=== PATIENT | female | born 1945 | race African-American/Black ===

== ENCOUNTER 2021-09-12 00:53 | Observation (INO) ==
[2021-09-12 09:11] LABS: Basophils # 0.1 10*3/uL (0.0-0.2); Basophils % 0.7 % (0.0-0.8); Eosinophils # 0.1 10*3/uL (0.0-0.87); Eosinophils % 1.3 % (0.00-10.9); Hematocrit 33.5 VOL% (35.7-47.0); Immature Granulocytes % 0.7 %; Immature Granulocytes Absolute 0.05 #; Lymphocytes # 2.4 10*3/uL (1.4-4.0); Lymphocytes % 33.8 % (21.3-54.2); Mean Corpuscular HGB Conc 32.8 GM/DL (32-36); Mean Corpuscular Volume 89.3 FL (87-102); Mean Platelet Volume 10.5 FL (9.6-12.0); Neutrophils % 50.5 % (38.7-73.9); Platelet Count 294 T/CUMM (130-400); Red Blood Count 3.75 MC/CUMM (3.8-5.5); Red Cell Distribution Width 15.3 % (9.3-17.3); White Blood Count 7.2 T/CUMM (4-12)
[2021-09-12] MEDS ORDERED: HYDROmorphone 2 MG/1 ML VIAL IV STA (09:14)
[2021-09-12] MEDS ORDERED: ONDANSETRON 4 MG/2 ML VIAL IV STA (09:14)
[2021-09-12] MEDS ORDERED: KETOROLAC 30 MG/1 ML VIAL IV STA (09:17)
[2021-09-12 09:41] LABS: Osmolality,Calculated 265.4 MOS/KG (273-304); Potassium 4.4 MMOL/L (3.5-5.1)
[2021-09-12 10:13] LABS: Sedimentation Rate-Westergren 10 MM/HR (0-30)
[2021-09-12] MEDS ORDERED: GLUCAGON 1 MG VIAL IM PRN (11:45)
[2021-09-12] MEDS ORDERED: hydrALAZINE 20 MG/1 ML VIAL IV PRN (11:45)
[2021-09-12] MEDS ORDERED: ONDANSETRON 4 MG/2 ML VIAL IV PRN (11:45)
[2021-09-12] MEDS ORDERED: DEXTROSE 10% 25 GM/250 ML BAG IV PRN (11:56)
[2021-09-12 13:41] LABS: Bilirubin,Urine Negative (Negative); Blood, Urine Negative (Negative); Glucose,Urine (UA) Negative (Negative); Ketones,Urine Negative (Negative); Mucus,Urine Occasional /LPF (Occasional); Nitrite,Urine Negative (Negative); Protein,Urine Negative; RBC,Urine 1 /HPF (0-4); Urine Appearance CLEAR (Clear); Urine Color Yellow (Yellow); Urine Specific Gravity 1.011 (1.001-1.035); Urine Urobilinogen < 2.0 EU/DL (<2.0)
[2021-09-12] MEDS: PANTOPRAZOLE 40 MG TABLET PO SCH (19:54)
[2021-09-12] MEDS: ENOXAPARIN 40 MG/0.4 ML SYRINGE SUBCUT SCH (19:54)
[2021-09-12] MEDS ORDERED: INFLUENZA VIRUS VACCINE 0.5 ML SYRINGE IM ONE (20:03)
[2021-09-12] MEDS: ACETAMINOPHEN 325 MG TABLET PO PRN (21:57)
[2021-09-13] MEDS: ACETAMINOPHEN 325 MG TABLET PO PRN ×2 (01:17→21:02)
[2021-09-13 05:48] LABS: Basophils % 0.7 % (0.0-0.8); Eosinophils # 0.1 10*3/uL (0.0-0.87); Eosinophils % 2.2 % (0.00-10.9); Hematocrit 29.5 VOL% (35.7-47.0); Hemoglobin 9.4 GM/DL (12.0-16.0); Immature Granulocytes % 0.6 %; Immature Granulocytes Absolute 0.03 #; Lymphocytes # 2.1 10*3/uL (1.4-4.0); Lymphocytes % 39.3 % (21.3-54.2); Mean Corpuscular HGB Conc 31.9 GM/DL (32-36); Mean Corpuscular Volume 91.6 FL (87-102); Mean Platelet Volume 9.3 FL (9.6-12.0); Monocytes % 13.2 % (1.7-12.7); Platelet Count 251 T/CUMM (130-400); Red Blood Count 3.22 MC/CUMM (3.8-5.5); Red Cell Distribution Width 15.4 % (9.3-17.3); White Blood Count 5.5 T/CUMM (4-12)
[2021-09-13 06:20] LABS: Albumin 2.7 G/DL (3.4-5.0); Bilirubin,Total 0.4 MG/DL (0.20-1.00); Calcium 9.4 MG/DL (8.5-10.1); Osmolality,Calculated 265.4 MOS/KG (273-304); Risk Ratio 2.12; Thyroid Stimulating Hormone 1.81 uIU/ml (0.358-3.74); Total Protein 5.6 G/DL (6.4-8.2); VLDL Cholesterol 14.2 MG/DL
[2021-09-13] MEDS: PANTOPRAZOLE 40 MG TABLET PO SCH (09:44)
[2021-09-13] MEDS: amLODIPine 10 MG TABLET PO SCH (13:12)
[2021-09-13] MEDS: ENOXAPARIN 40 MG/0.4 ML SYRINGE SUBCUT SCH (13:12)
[2021-09-13] MEDS: SODIUM CHLORIDE 0.9% 1,000 ML IV SCH (13:17)
[2021-09-14] MEDS: SODIUM CHLORIDE 0.9% 1,000 ML IV SCH ×3 (04:17→15:18)
[2021-09-14] MEDS: POLYETHYLENE GLYCOL POWDER 17 GM PACK PO PRN (04:46)
[2021-09-14 05:04] LABS: Basophils # 0.1 10*3/uL (0.0-0.2); Eosinophils # 0.2 10*3/uL (0.0-0.87); Eosinophils % 2.9 % (0.00-10.9); Hematocrit 31.6 VOL% (35.7-47.0); Hemoglobin 10.1 GM/DL (12.0-16.0); Immature Granulocytes % 0.5 %; Immature Granulocytes Absolute 0.03 #; Lymphocytes # 2.2 10*3/uL (1.4-4.0); Lymphocytes % 34.8 % (21.3-54.2); Mean Corpuscular Volume 91.9 FL (87-102); Mean Platelet Volume 9.6 FL (9.6-12.0); Monocytes % 12.3 % (1.7-12.7); Neutrophils % 48.5 % (38.7-73.9); Platelet Count 260 T/CUMM (130-400); Red Blood Count 3.44 MC/CUMM (3.8-5.5); Red Cell Distribution Width 15.1 % (9.3-17.3); White Blood Count 6.2 T/CUMM (4-12)
[2021-09-14 05:41] LABS: Calcium 9.3 MG/DL (8.5-10.1); Potassium 3.8 MMOL/L (3.5-5.1)
[2021-09-14] MEDS: cycloSPORINE OPH EMUL 1 VIAL BOTH EYES SCH ×2 (05:53→17:23)
[2021-09-14] MEDS: ACETAMINOPHEN 325 MG TABLET PO PRN (05:55)
[2021-09-14] MEDS: PANTOPRAZOLE 40 MG TABLET PO SCH (08:01)
[2021-09-14] MEDS: amLODIPine 10 MG TABLET PO SCH (08:01)
[2021-09-14] MEDS ORDERED: BISACODYL 5 MG TABLET PO PRN (09:33)
[2021-09-14] MEDS: LISINOPRIL/HCTZ 10-12.5 MG TABLET PO SCH (12:01)
[2021-09-14] MEDS: ENOXAPARIN 40 MG/0.4 ML SYRINGE SUBCUT SCH (12:02)
[2021-09-15] MEDS: SODIUM CHLORIDE 0.9% 1,000 ML IV SCH ×2 (02:43→07:03)
[2021-09-15] MEDS: ACETAMINOPHEN 325 MG TABLET PO PRN (04:32)
[2021-09-15] MEDS: cycloSPORINE OPH EMUL 1 VIAL BOTH EYES SCH ×2 (05:40→17:35)
[2021-09-15 05:55] LABS: Basophils # 0.1 10*3/uL (0.0-0.2); Basophils % 0.8 % (0.0-0.8); Eosinophils # 0.2 10*3/uL (0.0-0.87); Eosinophils % 2.3 % (0.00-10.9); Hematocrit 32.1 VOL% (35.7-47.0); Hemoglobin 10.4 GM/DL (12.0-16.0); Immature Granulocytes % 0.6 %; Immature Granulocytes Absolute 0.04 #; Lymphocytes # 2.1 10*3/uL (1.4-4.0); Lymphocytes % 32.8 % (21.3-54.2); Mean Corpuscular HGB Conc 32.4 GM/DL (32-36); Mean Corpuscular Volume 90.4 FL (87-102); Monocytes % 10.8 % (1.7-12.7); Neutrophils % 52.7 % (38.7-73.9); Platelet Count 255 T/CUMM (130-400); Red Blood Count 3.55 MC/CUMM (3.8-5.5); Red Cell Distribution Width 15.2 % (9.3-17.3); White Blood Count 6.4 T/CUMM (4-12)
[2021-09-15 06:15] LABS: Calcium 9.4 MG/DL (8.5-10.1); Osmolality,Calculated 274.5 MOS/KG (273-304); Potassium 3.2 MMOL/L (3.5-5.1)
[2021-09-15] MEDS ORDERED: LACTULOSE 20 GM/30 ML UDCUP PO PRN (08:49)
[2021-09-15] MEDS ORDERED: POTASSIUM CHLORIDE 20 MEQ TABLET PO ONE (09:00)
[2021-09-15] MEDS: PANTOPRAZOLE 40 MG TABLET PO SCH (09:04)
[2021-09-15] MEDS: LISINOPRIL/HCTZ 10-12.5 MG TABLET PO SCH (09:04)
[2021-09-15] MEDS: amLODIPine 10 MG TABLET PO SCH (09:04)
[2021-09-15] MEDS: ENOXAPARIN 40 MG/0.4 ML SYRINGE SUBCUT SCH (13:11)
[2021-09-16 05:05] LABS: Basophils # 0.1 10*3/uL (0.0-0.2); Basophils % 0.9 % (0.0-0.8); Eosinophils # 0.2 10*3/uL (0.0-0.87); Eosinophils % 2.2 % (0.00-10.9); Hematocrit 32.4 VOL% (35.7-47.0); Hemoglobin 10.3 GM/DL (12.0-16.0); Immature Granulocytes % 0.5 %; Immature Granulocytes Absolute 0.04 #; Lymphocytes # 2.5 10*3/uL (1.4-4.0); Lymphocytes % 32.1 % (21.3-54.2); Mean Corpuscular HGB Conc 31.8 GM/DL (32-36); Mean Platelet Volume 9.3 FL (9.6-12.0); Monocytes % 8.7 % (1.7-12.7); Neutrophils % 55.6 % (38.7-73.9); Platelet Count 251 T/CUMM (130-400); Red Blood Count 3.52 MC/CUMM (3.8-5.5); Red Cell Distribution Width 15.6 % (9.3-17.3); White Blood Count 7.8 T/CUMM (4-12)
[2021-09-16 05:35] LABS: Osmolality,Calculated 271.7 MOS/KG (273-304); Potassium 3.4 MMOL/L (3.5-5.1)
[2021-09-16] MEDS: cycloSPORINE OPH EMUL 1 VIAL BOTH EYES SCH ×2 (06:36→18:27)
[2021-09-16] MEDS ORDERED: POTASSIUM CHLORIDE 20 MEQ TABLET PO PRN (07:58)
[2021-09-16] MEDS: LISINOPRIL/HCTZ 10-12.5 MG TABLET PO SCH (09:07)
[2021-09-16] MEDS: allopurinoL 100 MG TABLET PO SCH (09:08)
[2021-09-16] MEDS: PANTOPRAZOLE 40 MG TABLET PO SCH (09:08)
[2021-09-16] MEDS: amLODIPine 10 MG TABLET PO SCH (09:08)
[2021-09-16] MEDS: POLYETHYLENE GLYCOL POWDER 17 GM PACK PO PRN (11:57)
[2021-09-16] MEDS: POLYETHYLENE GLYCOL POWDER 17 GM PACK PO SCH (15:10)
[2021-09-16] MEDS: ENOXAPARIN 40 MG/0.4 ML SYRINGE SUBCUT SCH (15:49)
[2021-09-16] MEDS: ACETAMINOPHEN 325 MG TABLET PO PRN (21:56)
[2021-09-17] MEDS: cycloSPORINE OPH EMUL 1 VIAL BOTH EYES SCH (05:42)
[2021-09-17 06:56] LABS: Basophils # 0.1 10*3/uL (0.0-0.2); Basophils % 0.8 % (0.0-0.8); Eosinophils # 0.1 10*3/uL (0.0-0.87); Eosinophils % 1.6 % (0.00-10.9); Hematocrit 30.1 VOL% (35.7-47.0); Hemoglobin 9.8 GM/DL (12.0-16.0); Immature Granulocytes % 0.5 %; Immature Granulocytes Absolute 0.04 #; Lymphocytes # 1.9 10*3/uL (1.4-4.0); Lymphocytes % 23.9 % (21.3-54.2); Mean Corpuscular HGB Conc 32.6 GM/DL (32-36); Mean Corpuscular Volume 90.9 FL (87-102); Mean Platelet Volume 9.6 FL (9.6-12.0); Monocytes % 11.9 % (1.7-12.7); Neutrophils % 61.3 % (38.7-73.9); Platelet Count 234 T/CUMM (130-400); Red Blood Count 3.31 MC/CUMM (3.8-5.5); Red Cell Distribution Width 15.6 % (9.3-17.3); White Blood Count 7.9 T/CUMM (4-12)
[2021-09-17 07:06] LABS: Calcium 9.8 MG/DL (8.5-10.1); Osmolality,Calculated 269.8 MOS/KG (273-304); Potassium 3.3 MMOL/L (3.5-5.1)
[2021-09-17] MEDS ORDERED: POTASSIUM CHLORIDE 20 MEQ TABLET PO ONE (07:22)
[2021-09-17 08:14] VITALS: BP 156/63
[2021-09-17] MEDS: POLYETHYLENE GLYCOL POWDER 17 GM PACK PO SCH (08:21)
[2021-09-17] MEDS: LISINOPRIL/HCTZ 10-12.5 MG TABLET PO SCH (08:21)
[2021-09-17] MEDS: amLODIPine 10 MG TABLET PO SCH (08:21)
[2021-09-17] MEDS: PANTOPRAZOLE 40 MG TABLET PO SCH (08:22)
[2021-09-17] MEDS: allopurinoL 100 MG TABLET PO SCH (08:22)
[2021-09-17] MEDS ORDERED: POTASSIUM CHLORIDE 20 MEQ TABLET PO SCH (21:00)
== END 2021-09-17 11:32 | disposition home or self-care (01) ==
LOC: EDBD → EDUNIT# → N.EDINP 00:53 → N.ED 00:53 → SUATTDRO 11:45 → N.EDINP 15:49 → N.3E 17:02
PROVIDERS: ADMIT Internal Medicine; ATTEND Internal Medicine

== ENCOUNTER 2021-11-05 14:34 | Inpatient (IN) ==
[2021-11-05 15:34] LABS: Basophils # 0.1 10*3/uL (0.0-0.2); Basophils % 0.7 % (0.0-0.8); Eosinophils % 0.4 % (0.00-10.9); Hematocrit 35.3 VOL% (35.7-47.0); Hemoglobin 11.2 GM/DL (12.0-16.0); Immature Granulocytes % 0.6 %; Immature Granulocytes Absolute 0.04 #; Lymphocytes # 2.2 10*3/uL (1.4-4.0); Lymphocytes % 30.9 % (21.3-54.2); Mean Corpuscular HGB Conc 31.7 GM/DL (32-36); Mean Corpuscular Volume 91.9 FL (87-102); Mean Platelet Volume 9.7 FL (9.6-12.0); Monocytes % 11.7 % (1.7-12.7); Neutrophils % 55.7 % (38.7-73.9); Platelet Count 300 T/CUMM (130-400); Red Blood Count 3.84 MC/CUMM (3.8-5.5); Red Cell Distribution Width 14.6 % (9.3-17.3); White Blood Count 7.1 T/CUMM (4-12)
[2021-11-05 16:18] LABS: Bilirubin,Urine Negative (Negative); Blood, Urine Trace mg/dL (Negative); Glucose,Urine (UA) Negative (Negative); Ketones,Urine Negative (Negative); Nitrite,Urine Negative (Negative); Protein,Urine Negative (Negative); RBC,Urine 1 /HPF (0-4); Squamous Epithelial Cell,Urine Occasional /HPF (0-10); Urine Appearance Clear (Clear); Urine Color Yellow (Yellow); Urine Specific Gravity 1.015 (1.001-1.035); Urine Urobilinogen 0.2 eU/dL (<2.0)
[2021-11-05 16:22] LABS: Alanine Aminotransferase 31 U/L (13-56); Albumin 3.5 G/DL (3.4-5.0); Alkaline Phosphatase 131 U/L (45-117); Aspartate Amino Transferase 30 U/L (0-37); Bilirubin,Total < 0.39 MG/DL (0.20-1.00); Blood Urea Nitrogen 35 MG/DL (7-18); Calcium 9.9 MG/DL (8.5-10.1); Carbon Dioxide 31 MMOL/L (21-32); Estimated Glom Filtration Rate 54 ML/MIN; Glucose 85 MG/DL (74-106); Osmolality,Calculated 283.5 MOS/KG (273-304); Sodium 139 MMOL/L (136-145)
[2021-11-05] MEDS ORDERED: POTASSIUM CHLORIDE 20 MEQ TABLET PO STA (16:32)
[2021-11-05] MEDS ORDERED: SODIUM CHLOR 0.9% KCL 20 MEQ 20 MEQ/1,000 ML BAG IV SCH (17:00)
[2021-11-05] MEDS ORDERED: ALBUTEROL 2.5 MG/3 ML NEB RESP TX PRN (17:21)
[2021-11-05] MEDS ORDERED: GLUCAGON 1 MG VIAL IM PRN (17:21)
[2021-11-05] MEDS ORDERED: ONDANSETRON 4 MG/2 ML VIAL IV PRN (17:21)
[2021-11-05] MEDS ORDERED: hydrALAZINE 20 MG/1 ML VIAL IV PRN (17:21)
[2021-11-05] MEDS ORDERED: ENOXAPARIN 40 MG/0.4 ML SYRINGE SUBCUT SCH (17:30)
[2021-11-05] MEDS ORDERED: DEXTROSE 10% 250 ML BAG IV PRN (17:37)
[2021-11-05] MEDS: SODIUM CHLOR 0.9% KCL 20 MEQ 20 MEQ/1,000 ML BAG IV SCH (17:51)
[2021-11-05] MEDS ORDERED: MORPHINE 4 MG/1 ML VIAL IV PRN (18:01)
[2021-11-05 18:42] LABS: % Iron Saturation 23.8 % (18-50)
[2021-11-05 21:00] LABS: Folate 7.99 NG/ML (5.38-24.0)
[2021-11-05] MEDS ORDERED: traMADol 50 MG TABLET PO ONE (21:58)
[2021-11-06] MEDS: SODIUM CHLOR 0.9% KCL 20 MEQ 20 MEQ/1,000 ML BAG IV SCH ×2 (03:04→17:03)
[2021-11-06 05:25] LABS: Basophils # 0.1 10*3/uL (0.0-0.2); Basophils % 0.8 % (0.0-0.8); Eosinophils # 0.1 10*3/uL (0.0-0.87); Eosinophils % 1.4 % (0.00-10.9); Hematocrit 30.7 VOL% (35.7-47.0); Hemoglobin 9.8 GM/DL (12.0-16.0); Immature Granulocytes % 0.5 %; Immature Granulocytes Absolute 0.03 #; Lymphocytes # 2.6 10*3/uL (1.4-4.0); Lymphocytes % 40.2 % (21.3-54.2); Mean Corpuscular HGB Conc 31.9 GM/DL (32-36); Mean Corpuscular Volume 89.8 FL (87-102); Mean Platelet Volume 9.3 FL (9.6-12.0); Monocytes % 12.9 % (1.7-12.7); Neutrophils % 44.2 % (38.7-73.9); Platelet Count 273 T/CUMM (130-400); Red Blood Count 3.42 MC/CUMM (3.8-5.5); Red Cell Distribution Width 14.8 % (9.3-17.3); White Blood Count 6.4 T/CUMM (4-12)
[2021-11-06 05:58] LABS: Albumin 2.8 G/DL (3.4-5.0); Bilirubin,Total 0.4 MG/DL (0.20-1.00); Calcium 9.7 MG/DL (8.5-10.1); Osmolality,Calculated 282.4 MOS/KG (273-304); Potassium 3.3 MMOL/L (3.5-5.1); Thyroid Stimulating Hormone 1.14 uIU/ml (0.358-3.74); Total Protein 5.7 G/DL (6.4-8.2); VLDL Cholesterol 20.8 MG/DL
[2021-11-06] MEDS: PANTOPRAZOLE 40 MG VIAL IV SCH (09:17)
[2021-11-06] MEDS ORDERED: cycloSPORINE OPH EMUL 1 VIAL BOTH EYES SCH (21:00)
[2021-11-06] MEDS: ACETAMINOPHEN 325 MG TABLET PO PRN (21:32)
[2021-11-07] MEDS: SODIUM CHLOR 0.9% KCL 20 MEQ 20 MEQ/1,000 ML BAG IV SCH ×4 (03:11→20:00)
[2021-11-07] MEDS: cycloSPORINE OPH EMUL 1 VIAL BOTH EYES SCH ×3 (05:34→18:15)
[2021-11-07] MEDS: ACETAMINOPHEN 325 MG TABLET PO PRN ×2 (06:23→20:47)
[2021-11-07 06:26] LABS: Bilirubin,Total 0.5 MG/DL (0.20-1.00); Calcium 9.7 MG/DL (8.5-10.1); Potassium 3.1 MMOL/L (3.5-5.1); Total Protein 5.9 G/DL (6.4-8.2)
[2021-11-07 06:40] LABS: Basophils % 0.7 % (0.0-0.8); Eosinophils # 0.2 10*3/uL (0.0-0.87); Eosinophils % 2.7 % (0.00-10.9); Hematocrit 30.5 VOL% (35.7-47.0); Hemoglobin 9.7 GM/DL (12.0-16.0); Immature Granulocytes % 0.5 %; Immature Granulocytes Absolute 0.03 #; Lymphocytes % 36.2 % (21.3-54.2); Mean Corpuscular HGB Conc 31.8 GM/DL (32-36); Mean Corpuscular Volume 91.6 FL (87-102); Mean Platelet Volume 10.2 FL (9.6-12.0); Monocytes % 11.5 % (1.7-12.7); Neutrophils % 48.4 % (38.7-73.9); Platelet Count 268 T/CUMM (130-400); Red Blood Count 3.33 MC/CUMM (3.8-5.5); Red Cell Distribution Width 14.6 % (9.3-17.3); White Blood Count 5.6 T/CUMM (4-12)
[2021-11-07] MEDS ORDERED: POTASSIUM CHLORIDE 20 MEQ TABLET PO ONE (07:24)
[2021-11-07] MEDS: PANTOPRAZOLE 40 MG VIAL IV SCH (09:04)
[2021-11-07] MEDS ORDERED: CYANOCOBALAMIN 1000 MCG/1 ML VIAL IM SCH (10:00)
[2021-11-07] MEDS: LACTATED RINGERS 1,000 ML IV SCH ×2 (10:21→11:00)
[2021-11-07] MEDS ORDERED: DICLOFENAC SODIUM 75 MG TABLET PO SCH (12:00)
[2021-11-07] MEDS ORDERED: LIDOCAINE 2% 5 ML VIAL ONE (13:11)
[2021-11-07] MEDS ORDERED: propofoL 200 MG/20 ML VIAL IV ONE (13:11)
[2021-11-07] MEDS ORDERED: ETOMIDATE 20 MG/10 ML VIAL IV ONE (13:11)
[2021-11-07] MEDS: ANASTROZOLE 1 MG TABLET PO SCH (14:44)
[2021-11-07] MEDS: hydroCHLOROthiazide 12.5 MG CAPSULE PO SCH ×2 (14:44→20:44)
[2021-11-07] MEDS: CHOLECALCIFEROL 5,000 UNIT TABLET PO SCH (14:44)
[2021-11-07] MEDS: allopurinoL 100 MG TABLET PO SCH (14:44)
[2021-11-07] MEDS: HYDROXYCHLOROQUINE 200 MG TABLET PO SCH ×2 (14:44→20:44)
[2021-11-07] MEDS: lisinopriL 10 MG TABLET PO SCH ×2 (14:44→20:44)
[2021-11-07] MEDS: COLCHICINE 0.6 MG CAPSULE PO SCH ×2 (14:45→20:44)
[2021-11-07] MEDS: amLODIPine 10 MG TABLET PO SCH (14:45)
[2021-11-08] MEDS: SODIUM CHLOR 0.9% KCL 20 MEQ 20 MEQ/1,000 ML BAG IV SCH ×3 (04:16→15:28)
[2021-11-08 05:03] LABS: Basophils # 0.1 10*3/uL (0.0-0.2); Basophils % 0.6 % (0.0-0.8); Eosinophils # 0.2 10*3/uL (0.0-0.87); Eosinophils % 2.4 % (0.00-10.9); Hematocrit 31.3 VOL% (35.7-47.0); Hemoglobin 9.7 GM/DL (12.0-16.0); Immature Granulocytes % 0.4 %; Immature Granulocytes Absolute 0.03 #; Lymphocytes # 2.3 10*3/uL (1.4-4.0); Lymphocytes % 28.7 % (21.3-54.2); Mean Corpuscular Volume 89.9 FL (87-102); Mean Platelet Volume 9.1 FL (9.6-12.0); Neutrophils % 56.9 % (38.7-73.9); Platelet Count 254 T/CUMM (130-400); Red Blood Count 3.48 MC/CUMM (3.8-5.5); Red Cell Distribution Width 14.6 % (9.3-17.3); White Blood Count 7.9 T/CUMM (4-12)
[2021-11-08 05:26] LABS: Albumin 2.8 G/DL (3.4-5.0); Bilirubin,Total 0.4 MG/DL (0.20-1.00); Calcium 9.5 MG/DL (8.5-10.1); Potassium 3.4 MMOL/L (3.5-5.1); Total Protein 5.6 G/DL (6.4-8.2)
[2021-11-08] MEDS: cycloSPORINE OPH EMUL 1 VIAL BOTH EYES SCH ×4 (06:53→18:05)
[2021-11-08] MEDS: CHOLECALCIFEROL 5,000 UNIT TABLET PO SCH (08:40)
[2021-11-08] MEDS: ANASTROZOLE 1 MG TABLET PO SCH (08:40)
[2021-11-08] MEDS: COLCHICINE 0.6 MG CAPSULE PO SCH ×2 (08:40→20:33)
[2021-11-08] MEDS: amLODIPine 10 MG TABLET PO SCH (08:40)
[2021-11-08] MEDS: POTASSIUM CHLORIDE 20 MEQ TABLET PO SCH (08:40)
[2021-11-08] MEDS: HYDROXYCHLOROQUINE 200 MG TABLET PO SCH ×2 (08:40→20:33)
[2021-11-08] MEDS: hydroCHLOROthiazide 12.5 MG CAPSULE PO SCH ×2 (08:40→20:33)
[2021-11-08] MEDS: allopurinoL 100 MG TABLET PO SCH (08:40)
[2021-11-08] MEDS: PANTOPRAZOLE 40 MG VIAL IV SCH (08:41)
[2021-11-08] MEDS: lisinopriL 10 MG TABLET PO SCH ×2 (08:44→20:33)
[2021-11-08] MEDS: cefTRIAXone 1,000 MG in SODIUM CHLORIDE 0.9% 100 ML IV SCH (09:24)
[2021-11-08] MEDS: ACETAMINOPHEN 325 MG TABLET PO PRN (20:37)
[2021-11-09] MEDS: cycloSPORINE OPH EMUL 1 VIAL BOTH EYES SCH ×4 (00:32→18:07)
[2021-11-09] MEDS: SODIUM CHLOR 0.9% KCL 20 MEQ 20 MEQ/1,000 ML BAG IV SCH ×2 (03:52→16:37)
[2021-11-09 05:40] LABS: Basophils # 0.1 10*3/uL (0.0-0.2); Basophils % 0.7 % (0.0-0.8); Eosinophils # 0.2 10*3/uL (0.0-0.87); Eosinophils % 2.8 % (0.00-10.9); Hematocrit 30.5 VOL% (35.7-47.0); Hemoglobin 9.8 GM/DL (12.0-16.0); Immature Granulocytes % 0.6 %; Immature Granulocytes Absolute 0.04 #; Lymphocytes # 2.4 10*3/uL (1.4-4.0); Lymphocytes % 33.9 % (21.3-54.2); Mean Corpuscular HGB Conc 32.1 GM/DL (32-36); Mean Corpuscular Volume 89.7 FL (87-102); Mean Platelet Volume 9.3 FL (9.6-12.0); Monocytes % 10.8 % (1.7-12.7); Neutrophils % 51.2 % (38.7-73.9); Platelet Count 244 T/CUMM (130-400); Red Cell Distribution Width 14.8 % (9.3-17.3); White Blood Count 7.1 T/CUMM (4-12)
[2021-11-09 06:02] LABS: Albumin 2.8 G/DL (3.4-5.0); Bilirubin,Total 0.4 MG/DL (0.20-1.00); Calcium 9.5 MG/DL (8.5-10.1); Potassium 3.4 MMOL/L (3.5-5.1); Total Protein 5.8 G/DL (6.4-8.2)
[2021-11-09] MEDS: CHOLECALCIFEROL 5,000 UNIT TABLET PO SCH (08:40)
[2021-11-09] MEDS: ANASTROZOLE 1 MG TABLET PO SCH (08:41)
[2021-11-09] MEDS: hydroCHLOROthiazide 12.5 MG CAPSULE PO SCH ×2 (08:41→20:18)
[2021-11-09] MEDS: allopurinoL 100 MG TABLET PO SCH (08:41)
[2021-11-09] MEDS: lisinopriL 10 MG TABLET PO SCH ×2 (08:41→20:18)
[2021-11-09] MEDS: POTASSIUM CHLORIDE 20 MEQ TABLET PO SCH (08:41)
[2021-11-09] MEDS: amLODIPine 10 MG TABLET PO SCH (08:41)
[2021-11-09] MEDS: COLCHICINE 0.6 MG CAPSULE PO SCH ×2 (08:41→20:18)
[2021-11-09] MEDS: HYDROXYCHLOROQUINE 200 MG TABLET PO SCH ×2 (08:41→20:18)
[2021-11-09] MEDS: cefTRIAXone 1,000 MG in SODIUM CHLORIDE 0.9% 100 ML IV SCH (08:42)
[2021-11-09] MEDS: PANTOPRAZOLE 40 MG VIAL IV SCH (08:42)
[2021-11-09] MEDS ORDERED: POTASSIUM CHLORIDE 20 MEQ TABLET PO ONE (10:02)
[2021-11-09] MEDS: ACETAMINOPHEN 325 MG TABLET PO PRN ×2 (12:49→18:06)
[2021-11-10] MEDS: cycloSPORINE OPH EMUL 1 VIAL BOTH EYES SCH ×4 (00:20→18:08)
[2021-11-10] MEDS: SODIUM CHLOR 0.9% KCL 20 MEQ 20 MEQ/1,000 ML BAG IV SCH ×4 (00:20→21:51)
[2021-11-10] MEDS: MORPHINE 2 MG/1 ML SYRINGE IV PRN ×2 (02:23→16:49)
[2021-11-10 04:25] LABS: Basophils # 0.1 10*3/uL (0.0-0.2); Basophils % 1.2 % (0.0-0.8); Eosinophils # 0.2 10*3/uL (0.0-0.87); Eosinophils % 3.4 % (0.00-10.9); Hemoglobin 9.3 GM/DL (12.0-16.0); Immature Granulocytes % 0.5 %; Immature Granulocytes Absolute 0.03 #; Lymphocytes # 2.2 10*3/uL (1.4-4.0); Lymphocytes % 37.8 % (21.3-54.2); Mean Corpuscular HGB Conc 32.1 GM/DL (32-36); Mean Corpuscular Volume 90.9 FL (87-102); Monocytes % 14.1 % (1.7-12.7); Platelet Count 173 T/CUMM (130-400); Red Blood Count 3.19 MC/CUMM (3.8-5.5); Red Cell Distribution Width 14.9 % (9.3-17.3); White Blood Count 5.9 T/CUMM (4-12)
[2021-11-10 04:47] LABS: Alanine Aminotransferase 20 U/L (13-56); Albumin 2.7 G/DL (3.4-5.0); Alkaline Phosphatase 94 U/L (45-117); Aspartate Amino Transferase 19 U/L (0-37); Bilirubin,Total < 0.39 MG/DL (0.20-1.00); Blood Urea Nitrogen 11 MG/DL (7-18); Calcium 9.3 MG/DL (8.5-10.1); Carbon Dioxide 25 MMOL/L (21-32); Estimated Glom Filtration Rate 98 ML/MIN; Glucose 84 MG/DL (74-106); Osmolality,Calculated 283.8 MOS/KG (273-304); Potassium 3.6 MMOL/L (3.5-5.1); Sodium 144 MMOL/L (136-145); Total Protein 5.8 G/DL (6.4-8.2)
[2021-11-10] MEDS ORDERED: MAGNESIUM SULF RIDER 2 GM/50 ML PREMIX IV ONE (07:34)
[2021-11-10 08:36] LABS: PT Patient Result 11.4 SECS (10.5-12.0)
[2021-11-10] MEDS ORDERED: DIAZEPAM 5 MG TABLET PO ONE (08:56)
[2021-11-10] MEDS: lisinopriL 10 MG TABLET PO SCH ×2 (09:18→21:47)
[2021-11-10] MEDS: ANASTROZOLE 1 MG TABLET PO SCH (09:18)
[2021-11-10] MEDS: amLODIPine 10 MG TABLET PO SCH (09:18)
[2021-11-10] MEDS: allopurinoL 100 MG TABLET PO SCH (09:18)
[2021-11-10] MEDS: POTASSIUM CHLORIDE 20 MEQ TABLET PO SCH (09:18)
[2021-11-10] MEDS: COLCHICINE 0.6 MG CAPSULE PO SCH ×2 (09:18→21:47)
[2021-11-10] MEDS: hydroCHLOROthiazide 12.5 MG CAPSULE PO SCH ×2 (09:19→21:47)
[2021-11-10] MEDS: cefTRIAXone 1,000 MG in SODIUM CHLORIDE 0.9% 100 ML IV SCH (09:19)
[2021-11-10] MEDS: CHOLECALCIFEROL 5,000 UNIT TABLET PO SCH (09:19)
[2021-11-10] MEDS: PANTOPRAZOLE 40 MG VIAL IV SCH (09:19)
[2021-11-10] MEDS: HYDROXYCHLOROQUINE 200 MG TABLET PO SCH ×2 (09:19→21:47)
[2021-11-10] MEDS: LEVOFLOXACIN INJ 500 MG/100 ML PREMIX IV SCH (15:15)
[2021-11-10] MEDS: SODIUM CHLORIDE 0.45% 1,000 ML IV SCH (15:16)
[2021-11-11] MEDS: cycloSPORINE OPH EMUL 1 VIAL BOTH EYES SCH ×3 (03:49→14:13)
[2021-11-11 07:58] LABS: Basophils # 0.1 10*3/uL (0.0-0.2); Basophils % 1.1 % (0.0-0.8); Eosinophils # 0.1 10*3/uL (0.0-0.87); Eosinophils % 2.1 % (0.00-10.9); Hematocrit 27.3 VOL% (35.7-47.0); Hemoglobin 8.8 GM/DL (12.0-16.0); Immature Granulocytes % 0.7 %; Immature Granulocytes Absolute 0.04 #; Lymphocytes # 1.8 10*3/uL (1.4-4.0); Lymphocytes % 32.4 % (21.3-54.2); Mean Corpuscular HGB Conc 32.2 GM/DL (32-36); Mean Corpuscular Volume 90.4 FL (87-102); Mean Platelet Volume 9.7 FL (9.6-12.0); Monocytes % 14.8 % (1.7-12.7); Neutrophils % 48.9 % (38.7-73.9); Platelet Count 223 T/CUMM (130-400); Red Blood Count 3.02 MC/CUMM (3.8-5.5); Red Cell Distribution Width 14.9 % (9.3-17.3); White Blood Count 5.7 T/CUMM (4-12)
[2021-11-11 08:13] LABS: Calcium 9.2 MG/DL (8.5-10.1); Osmolality,Calculated 282.1 MOS/KG (273-304); Potassium 3.5 MMOL/L (3.5-5.1)
[2021-11-11] MEDS: COLCHICINE 0.6 MG CAPSULE PO SCH (10:01)
[2021-11-11] MEDS: allopurinoL 100 MG TABLET PO SCH (10:01)
[2021-11-11] MEDS: HYDROXYCHLOROQUINE 200 MG TABLET PO SCH (10:01)
[2021-11-11] MEDS: hydroCHLOROthiazide 12.5 MG CAPSULE PO SCH (10:01)
[2021-11-11] MEDS: ANASTROZOLE 1 MG TABLET PO SCH (10:01)
[2021-11-11] MEDS: lisinopriL 10 MG TABLET PO SCH (10:01)
[2021-11-11] MEDS: CHOLECALCIFEROL 5,000 UNIT TABLET PO SCH (10:02)
[2021-11-11] MEDS: amLODIPine 10 MG TABLET PO SCH (10:02)
[2021-11-11] MEDS: POTASSIUM CHLORIDE 20 MEQ TABLET PO SCH (10:02)
[2021-11-11] MEDS: PANTOPRAZOLE 40 MG VIAL IV SCH (10:02)
[2021-11-11] MEDS: SODIUM CHLOR 0.9% KCL 20 MEQ 20 MEQ/1,000 ML BAG IV SCH ×2 (10:04→19:16)
[2021-11-11] MEDS: LEVOFLOXACIN INJ 500 MG/100 ML PREMIX IV SCH (14:13)
[2021-11-11 16:11] VITALS: BP 131/51
[2021-11-11] MEDS: SODIUM CHLORIDE 0.45% 1,000 ML IV SCH (19:15)
== END 2021-11-11 16:57 | DRG 687 ==
LOC: EDBD → EDUNIT# → N.ED 14:34 → N.EDINP 17:21 → SUATTDRO 17:21 → N.TELES 18:26
PROVIDERS: ADMIT Internal Medicine; ATTEND Internal Medicine

== ENCOUNTER 2022-02-03 10:59 | Inpatient (IN) ==
[~2022-02-03 10:59] MED LIST: ASPIRIN 325 MG TABLET PO ONE; CLOPIDOGREL 300 MG TABLET PO ONE; DIAZEPAM 5 MG TABLET PO ONE; MAGNESIUM SULF RIDER 2 GM/50 ML PREMIX IV PRN; POTASSIUM CHLORIDE RIDER 10 MEQ/100 ML PREMIX IV PRN; diphenhydrAMINE CAP 50 MG CAPSULE PO ONE
[2022-02-03] MEDS ORDERED: DIAZEPAM 5 MG TABLET ONE (12:14)
[2022-02-03] MEDS ORDERED: diphenhydrAMINE CAP 50 MG CAPSULE ONE (12:14)
[2022-02-03] MEDS ORDERED: CLOPIDOGREL 300 MG TABLET ONE (12:14)
[2022-02-03] MEDS: SODIUM CHLORIDE 0.9% 1,000 ML IV SCH ×2 (12:16→18:20)
[2022-02-03] MEDS ORDERED: HYDROmorphone 1 MG/1 ML SYRINGE ONE ×4 (14:23→17:09)
[2022-02-03] MEDS ORDERED: HYDROmorphone 1 MG/1 ML SYRINGE IV ONE (14:25)
[2022-02-03] MEDS ORDERED: MIDAZOLAM 2 MG/2 ML VIAL ONE (15:06)
[2022-02-03] MEDS ORDERED: HEPARIN 5,000 UNIT/1 ML VIAL ONE (15:33)
[2022-02-03] MEDS ORDERED: SIMETHICONE CHEW 80 MG TABLET PO PRN (17:11)
[2022-02-03] MEDS ORDERED: ONDANSETRON 4 MG/2 ML VIAL ONE (17:27)
[2022-02-03] MEDS ORDERED: BENZOCAINE/MENTHOL LOZENGE 18/BOX PO PRN (18:57)
[2022-02-03] MEDS: ALBUTEROL/IPRATROPIUM 3 ML NEB RESP TX SCH ×2 (19:00→22:00)
[2022-02-03] MEDS: ROSUVASTATIN 20 MG TABLET PO SCH (21:21)
[2022-02-03] MEDS: POTASSIUM CHLORIDE 20 MEQ TABLET PO SCH (21:21)
[2022-02-03] MEDS: HYDROXYCHLOROQUINE 200 MG TABLET PO SCH (21:21)
[2022-02-03] MEDS: cloNIDine 0.1 MG TABLET PO SCH (21:21)
[2022-02-03] MEDS: MONTELUKAST 10 MG TABLET PO SCH (21:21)
[2022-02-03] MEDS: traMADol 50 MG TABLET PO PRN (21:27)
[2022-02-03] MEDS: COLCHICINE 0.6 MG CAPSULE PO PRN (21:31)
[2022-02-03] MEDS: cycloSPORINE OPH EMUL 1 VIAL BOTH EYES SCH (23:33)
[2022-02-04] MEDS: ALBUTEROL/IPRATROPIUM 3 ML NEB RESP TX SCH ×6 (02:10→23:45)
[2022-02-04] MEDS: SODIUM CHLORIDE 0.9% 1,000 ML IV SCH (04:51)
[2022-02-04 05:08] LABS: Basophils # 0.1 10*3/uL (0.0-0.2); Eosinophils # 0.1 10*3/uL (0.0-0.87); Eosinophils % 0.7 % (0.00-10.9); Hematocrit 24.5 VOL% (35.7-47.0); Hemoglobin 7.6 GM/DL (12.0-16.0); Immature Granulocytes % 0.6 %; Immature Granulocytes Absolute 0.04 #; Lymphocytes # 1.7 10*3/uL (1.4-4.0); Lymphocytes % 24.3 % (21.3-54.2); Mean Corpuscular Volume 88.4 FL (87-102); Mean Platelet Volume 9.4 FL (9.6-12.0); Monocytes # 1.1 10*3/uL (0.11-0.8); Monocytes % 15.7 % (1.7-12.7); Neutrophils % 57.7 % (38.7-73.9); Platelet Count 348 T/CUMM (130-400); Red Blood Count 2.77 MC/CUMM (3.8-5.5); Red Cell Distribution Width 15.9 % (9.3-17.3)
[2022-02-04 05:27] LABS: Calcium 9.4 MG/DL (8.5-10.1); Osmolality,Calculated 275.7 MOS/KG (273-304); Potassium 4.1 MMOL/L (3.5-5.1)
[2022-02-04 05:42] LABS: Hypochromia Slight; Lymphocytes 23 % (20-55); Microcytosis Slight; Platelet Estimate Adequate; Total Cells Counted 100
[2022-02-04] MEDS: MAGNESIUM OXIDE 400 MG TABLET PO SCH (08:47)
[2022-02-04] MEDS: NON-FORMULARY MEDICATION (Menthol [Biofreeze (Menthol)] 4 % Gel) TOP SCH (08:47)
[2022-02-04] MEDS: ANASTROZOLE 1 MG TABLET PO SCH (08:47)
[2022-02-04] MEDS: POTASSIUM CHLORIDE 20 MEQ TABLET PO SCH ×2 (08:47→22:30)
[2022-02-04] MEDS: LORATADINE 10 MG TABLET PO SCH (08:47)
[2022-02-04] MEDS: cloNIDine 0.1 MG TABLET PO SCH ×2 (08:47→22:29)
[2022-02-04] MEDS: POLYETHYLENE GLYCOL POWDER 17 GM PACK PO SCH (08:47)
[2022-02-04] MEDS: HYDROXYCHLOROQUINE 200 MG TABLET PO SCH ×2 (08:48→22:30)
[2022-02-04] MEDS: PANTOPRAZOLE 40 MG TABLET PO SCH (08:48)
[2022-02-04] MEDS: allopurinoL 100 MG TABLET PO SCH (08:48)
[2022-02-04] MEDS: amLODIPine 5 MG TABLET PO SCH (08:48)
[2022-02-04] MEDS: predniSONE 5 MG TABLET PO SCH (08:48)
[2022-02-04] MEDS: cycloSPORINE OPH EMUL 1 VIAL BOTH EYES SCH ×2 (09:39→22:30)
[2022-02-04] MEDS: ONDANSETRON 4 MG/2 ML VIAL IV PRN ×2 (11:31→18:42)
[2022-02-04] MEDS: HYDROmorphone 1 MG/1 ML SYRINGE IV PRN ×2 (11:32→18:40)
[2022-02-04] MEDS: MELATONIN 3 MG TABLET PO PRN (22:29)
[2022-02-04] MEDS: ROSUVASTATIN 20 MG TABLET PO SCH (22:30)
[2022-02-04] MEDS: COLCHICINE 0.6 MG CAPSULE PO PRN (22:30)
[2022-02-04] MEDS: MONTELUKAST 10 MG TABLET PO SCH (22:30)
[2022-02-04] MEDS: traMADol 50 MG TABLET PO PRN (22:31)
[2022-02-04] MEDS: ACETAMINOPHEN 325 MG TABLET PO PRN (22:34)
[2022-02-05] MEDS: HYDROmorphone 1 MG/1 ML SYRINGE IV PRN ×4 (00:24→21:55)
[2022-02-05] MEDS: ONDANSETRON 4 MG/2 ML VIAL IV PRN ×3 (00:24→16:27)
[2022-02-05] MEDS: ALBUTEROL/IPRATROPIUM 3 ML NEB RESP TX SCH ×5 (03:00→22:51)
[2022-02-05 05:06] LABS: Basophils # 0.1 10*3/uL (0.0-0.2); Basophils % 0.9 % (0.0-0.8); Eosinophils # 0.2 10*3/uL (0.0-0.87); Eosinophils % 2.7 % (0.00-10.9); Hematocrit 21.3 VOL% (35.7-47.0); Hemoglobin 6.6 GM/DL (12.0-16.0); Immature Granulocytes Absolute 0.07 #; Lymphocytes # 1.8 10*3/uL (1.4-4.0); Lymphocytes % 25.8 % (21.3-54.2); Mean Corpuscular Volume 89.1 FL (87-102); Mean Platelet Volume 9.4 FL (9.6-12.0); Monocytes % 14.2 % (1.7-12.7); Neutrophils % 55.4 % (38.7-73.9); Platelet Count 291 T/CUMM (130-400); Red Blood Count 2.39 MC/CUMM (3.8-5.5)
[2022-02-05 05:25] LABS: Calcium 9.3 MG/DL (8.5-10.1); Osmolality,Calculated 278.4 MOS/KG (273-304)
[2022-02-05] MEDS: cloNIDine 0.1 MG TABLET PO SCH ×2 (08:34→20:07)
[2022-02-05] MEDS: amLODIPine 5 MG TABLET PO SCH (08:34)
[2022-02-05] MEDS ORDERED: SODIUM CHLORIDE 0.9% 1,000 ML IV SCH (10:00)
[2022-02-05] MEDS ORDERED: HEPARIN/NACL 0.9% 2 UNITS/ML 2,000 UNIT/1,000 ML BAG IV ONE (11:34)
[2022-02-05] MEDS ORDERED: HEPARIN/NACL 0.9% 2 UNITS/ML 1,000 UNIT/500 ML BAG IV ONE (11:34)
[2022-02-05] MEDS ORDERED: MIDAZOLAM 2 MG/2 ML VIAL ONE (13:34)
[2022-02-05] MEDS ORDERED: fentaNYL 100 MCG/2 ML VIAL ONE (13:35)
[2022-02-05] MEDS ORDERED: HEPARIN 5,000 UNIT/1 ML VIAL ONE (13:55)
[2022-02-05] MEDS ORDERED: NITROGLYCERIN DRIP 0 MG/0 ML BOTTLE IV ONE (13:55)
[2022-02-05] MEDS ORDERED: HYDROmorphone 1 MG/1 ML SYRINGE ONE ×2 (14:13→14:55)
[2022-02-05] MEDS ORDERED: diphenhydrAMINE 50 MG/1 ML VIAL ONE (14:15)
[2022-02-05] MEDS: NON-FORMULARY MEDICATION (Menthol [Biofreeze (Menthol)] 4 % Gel) TOP SCH (14:25)
[2022-02-05] MEDS: POTASSIUM CHLORIDE 20 MEQ TABLET PO SCH ×2 (14:25→20:19)
[2022-02-05] MEDS: LORATADINE 10 MG TABLET PO SCH (14:25)
[2022-02-05] MEDS: cycloSPORINE OPH EMUL 1 VIAL BOTH EYES SCH ×2 (14:26→20:20)
[2022-02-05] MEDS: HYDROXYCHLOROQUINE 200 MG TABLET PO SCH ×2 (14:26→20:19)
[2022-02-05] MEDS: POLYETHYLENE GLYCOL POWDER 17 GM PACK PO SCH (14:26)
[2022-02-05] MEDS: MAGNESIUM OXIDE 400 MG TABLET PO SCH (14:27)
[2022-02-05] MEDS: predniSONE 5 MG TABLET PO SCH (14:27)
[2022-02-05] MEDS: allopurinoL 100 MG TABLET PO SCH (14:27)
[2022-02-05] MEDS: ANASTROZOLE 1 MG TABLET PO SCH (14:27)
[2022-02-05] MEDS: PANTOPRAZOLE 40 MG TABLET PO SCH (14:27)
[2022-02-05] MEDS ORDERED: NOREPINEPHRINE 4 MG/4 ML VIAL IV ONE ×4 (15:12→17:36)
[2022-02-05] MEDS ORDERED: ONDANSETRON 4 MG/2 ML VIAL ONE ×2 (15:15→15:50)
[2022-02-05] MEDS ORDERED: SODIUM CHLORIDE 0.9% 1,000 ML IV PRN (15:52)
[2022-02-05] MEDS: NOREPINEPHRINE 8 MG in SODIUM CHLORIDE 0.9% 242 ML IV PRN ×2 (17:38→21:00)
[2022-02-05 19:50] LABS: Hematocrit 32.9 VOL% (35.7-47.0); Hemoglobin 10.3 GM/DL (12.0-16.0)
[2022-02-05] MEDS: MONTELUKAST 10 MG TABLET PO SCH (20:19)
[2022-02-05] MEDS: ROSUVASTATIN 20 MG TABLET PO SCH (20:19)
[2022-02-05] MEDS: MELATONIN 3 MG TABLET PO PRN (20:19)
[2022-02-05] MEDS: traMADol 50 MG TABLET PO PRN (20:20)
[2022-02-05] MEDS: ACETAMINOPHEN 325 MG TABLET PO PRN (20:20)
[2022-02-06] MEDS: NOREPINEPHRINE 8 MG in SODIUM CHLORIDE 0.9% 242 ML IV PRN ×4 (00:43→17:49)
[2022-02-06] MEDS: ALBUTEROL/IPRATROPIUM 3 ML NEB RESP TX SCH ×6 (02:34→22:45)
[2022-02-06 05:46] LABS: Basophils % 0.2 % (0.0-0.8); Immature Granulocytes % 1.4 %; Immature Granulocytes Absolute 0.17 #; Lymphocytes # 1.2 10*3/uL (1.4-4.0); Lymphocytes % 9.8 % (21.3-54.2); Mean Corpuscular HGB Conc 29.5 GM/DL (32-36); Mean Corpuscular Volume 95.2 FL (87-102); Mean Platelet Volume 9.6 FL (9.6-12.0); Monocytes # 1.1 10*3/uL (0.11-0.8); NRBC # 0.17 10*3/uL; Neutrophils % 79.6 % (38.7-73.9); Platelet Count 163 T/CUMM (130-400); Red Blood Count 2.31 MC/CUMM (3.8-5.5); Red Cell Distribution Width 16.8 % (9.3-17.3); White Blood Count 12.2 T/CUMM (4-12)
[2022-02-06 05:51] LABS: Hemoglobin 6.5 GM/DL (12.0-16.0)
[2022-02-06 05:55] LABS: Acanthocytes 1+; Lymphocytes 11 % (20-55); Platelet Estimate Adequate; Poikilocytosis 1+; Total Cells Counted 100
[2022-02-06 05:56] LABS: Tear Drop Cells Few
[2022-02-06] MEDS ORDERED: DEXTROSE 10% 250 ML BAG IV PRN (06:16)
[2022-02-06 07:15] LABS: Basophils # 0.1 10*3/uL (0.0-0.2); Basophils % 0.3 % (0.0-0.8); Eosinophils % 0.1 % (0.00-10.9); Hematocrit 29.1 VOL% (35.7-47.0); Hemoglobin 9.3 GM/DL (12.0-16.0); Immature Granulocytes % 1.1 %; Immature Granulocytes Absolute 0.17 #; Lymphocytes # 1.5 10*3/uL (1.4-4.0); Lymphocytes % 10.1 % (21.3-54.2); Mean Corpuscular Volume 89.8 FL (87-102); Mean Platelet Volume 9.4 FL (9.6-12.0); Monocytes # 1.2 10*3/uL (0.11-0.8); NRBC # 0.15 10*3/uL; Neutrophils % 80.4 % (38.7-73.9); Platelet Count 234 T/CUMM (130-400); Red Blood Count 3.24 MC/CUMM (3.8-5.5); Red Cell Distribution Width 16.9 % (9.3-17.3); White Blood Count 14.8 T/CUMM (4-12)
[2022-02-06 07:54] LABS: Calcium 8.7 MG/DL (8.5-10.1); Osmolality,Calculated 278.8 MOS/KG (273-304)
[2022-02-06] MEDS ORDERED: MAGNESIUM SULF RIDER 2 GM/50 ML PREMIX IV PRN (08:00)
[2022-02-06] MEDS: HYDROXYCHLOROQUINE 200 MG TABLET PO SCH ×2 (08:40→20:28)
[2022-02-06] MEDS: allopurinoL 100 MG TABLET PO SCH (08:40)
[2022-02-06] MEDS: ANASTROZOLE 1 MG TABLET PO SCH (08:40)
[2022-02-06] MEDS: LORATADINE 10 MG TABLET PO SCH (08:40)
[2022-02-06] MEDS: PANTOPRAZOLE 40 MG TABLET PO SCH (08:40)
[2022-02-06] MEDS: POTASSIUM CHLORIDE 20 MEQ TABLET PO SCH (08:47)
[2022-02-06] MEDS: NON-FORMULARY MEDICATION (Menthol [Biofreeze (Menthol)] 4 % Gel) TOP SCH (08:47)
[2022-02-06] MEDS: cloNIDine 0.1 MG TABLET PO SCH ×2 (08:47→20:28)
[2022-02-06] MEDS: MAGNESIUM OXIDE 400 MG TABLET PO SCH (08:47)
[2022-02-06] MEDS: POLYETHYLENE GLYCOL POWDER 17 GM PACK PO SCH (08:47)
[2022-02-06] MEDS: HYDROmorphone 1 MG/1 ML SYRINGE IV PRN ×4 (08:48→20:27)
[2022-02-06] MEDS: amLODIPine 5 MG TABLET PO SCH (08:48)
[2022-02-06] MEDS: predniSONE 5 MG TABLET PO SCH (09:08)
[2022-02-06] MEDS: cycloSPORINE OPH EMUL 1 VIAL BOTH EYES SCH (09:27)
[2022-02-06] MEDS ORDERED: NOREPINEPHRINE 4 MG/4 ML VIAL IV ONE (09:47)
[2022-02-06] MEDS: ACETAMINOPHEN 325 MG TABLET PO PRN (10:39)
[2022-02-06] MEDS: MONTELUKAST 10 MG TABLET PO SCH (20:28)
[2022-02-06] MEDS: ROSUVASTATIN 20 MG TABLET PO SCH (20:28)
[2022-02-06] MEDS: MELATONIN 3 MG TABLET PO PRN (20:28)
[2022-02-07] MEDS: POTASSIUM CHLORIDE 20 MEQ TABLET PO SCH ×3 (00:07→21:40)
[2022-02-07] MEDS: cycloSPORINE OPH EMUL 1 VIAL BOTH EYES SCH ×3 (00:07→21:00)
[2022-02-07] MEDS: HYDROmorphone 1 MG/1 ML SYRINGE IV PRN ×4 (01:38→13:22)
[2022-02-07] MEDS: NOREPINEPHRINE 8 MG in SODIUM CHLORIDE 0.9% 242 ML IV PRN (04:24)
[2022-02-07 04:53] LABS: Basophils # 0.1 10*3/uL (0.0-0.2); Basophils % 0.5 % (0.0-0.8); Eosinophils # 0.1 10*3/uL (0.0-0.87); Eosinophils % 0.6 % (0.00-10.9); Hematocrit 20.1 VOL% (35.7-47.0); Hemoglobin 6.5 GM/DL (12.0-16.0); Immature Granulocytes % 0.9 %; Immature Granulocytes Absolute 0.11 #; Lymphocytes # 1.2 10*3/uL (1.4-4.0); Lymphocytes % 10.3 % (21.3-54.2); Mean Corpuscular HGB Conc 32.3 GM/DL (32-36); Mean Corpuscular Volume 88.2 FL (87-102); Mean Platelet Volume 9.4 FL (9.6-12.0); Monocytes # 1.4 10*3/uL (0.11-0.8); Monocytes % 11.5 % (1.7-12.7); NRBC # 0.13 10*3/uL; Neutrophils % 76.2 % (38.7-73.9); Platelet Count 192 T/CUMM (130-400); Red Blood Count 2.28 MC/CUMM (3.8-5.5); Red Cell Distribution Width 16.9 % (9.3-17.3); White Blood Count 11.8 T/CUMM (4-12)
[2022-02-07 05:11] LABS: Calcium 9.1 MG/DL (8.5-10.1); Potassium 4.6 MMOL/L (3.5-5.1)
[2022-02-07] MEDS ORDERED: SODIUM CHLORIDE 0.9% 1,000 ML IV PRN (05:22)
[2022-02-07] MEDS: ALBUTEROL/IPRATROPIUM 3 ML NEB RESP TX SCH ×4 (07:30→20:05)
[2022-02-07] MEDS: HYDROXYCHLOROQUINE 200 MG TABLET PO SCH ×2 (08:11→21:00)
[2022-02-07] MEDS: allopurinoL 100 MG TABLET PO SCH (08:11)
[2022-02-07] MEDS: LORATADINE 10 MG TABLET PO SCH (08:11)
[2022-02-07] MEDS: MAGNESIUM OXIDE 400 MG TABLET PO SCH (08:11)
[2022-02-07] MEDS: traMADol 50 MG TABLET PO PRN (08:11)
[2022-02-07] MEDS: predniSONE 5 MG TABLET PO SCH (08:11)
[2022-02-07] MEDS: PANTOPRAZOLE 40 MG TABLET PO SCH (08:11)
[2022-02-07] MEDS: ANASTROZOLE 1 MG TABLET PO SCH (08:11)
[2022-02-07] MEDS: POLYETHYLENE GLYCOL POWDER 17 GM PACK PO SCH (08:12)
[2022-02-07] MEDS: NON-FORMULARY MEDICATION (Menthol [Biofreeze (Menthol)] 4 % Gel) TOP SCH (08:12)
[2022-02-07] MEDS: cloNIDine 0.1 MG TABLET PO SCH ×2 (08:33→21:00)
[2022-02-07] MEDS: amLODIPine 5 MG TABLET PO SCH (08:33)
[2022-02-07] MEDS: ONDANSETRON 4 MG/2 ML VIAL IV PRN ×2 (09:00→12:53)
[2022-02-07] MEDS ORDERED: traMADol 50 MG TABLET PO PRN (09:04)
[2022-02-07] MEDS: SODIUM CHLORIDE 0.9% 1,000 ML IV SCH (12:50)
[2022-02-07] MEDS ORDERED: NALOXONE 0.4 MG/ML VIAL IV PRN (15:31)
[2022-02-07] MEDS: HYDROmorphone PCA 30 MG/30 ML SYRINGE IV SCH (16:20)
[2022-02-07 16:23] LABS: Hematocrit 27.3 VOL% (35.7-47.0); Hemoglobin 8.7 GM/DL (12.0-16.0)
[2022-02-07] MEDS: MONTELUKAST 10 MG TABLET PO SCH (21:00)
[2022-02-07] MEDS: ROSUVASTATIN 20 MG TABLET PO SCH (21:00)
[2022-02-07] MEDS ORDERED: cilostazoL 50 MG TABLET PO SCH (21:00)
[2022-02-08] MEDS: ALBUTEROL/IPRATROPIUM 3 ML NEB RESP TX SCH ×7 (00:05→23:47)
[2022-02-08] MEDS: SODIUM CHLORIDE 0.9% 1,000 ML IV SCH ×2 (01:41→16:00)
[2022-02-08 05:44] LABS: Basophils % 0.3 % (0.0-0.8); Eosinophils # 0.1 10*3/uL (0.0-0.87); Eosinophils % 1.6 % (0.00-10.9); Hematocrit 25.9 VOL% (35.7-47.0); Hemoglobin 8.1 GM/DL (12.0-16.0); Immature Granulocytes % 0.8 %; Immature Granulocytes Absolute 0.07 #; Lymphocytes # 1.1 10*3/uL (1.4-4.0); Lymphocytes % 12.9 % (21.3-54.2); Mean Corpuscular HGB Conc 31.3 GM/DL (32-36); Mean Corpuscular Volume 89.6 FL (87-102); Mean Platelet Volume 9.6 FL (9.6-12.0); Monocytes # 1.1 10*3/uL (0.11-0.8); Monocytes % 13.1 % (1.7-12.7); NRBC # 0.09 10*3/uL; Neutrophils % 71.3 % (38.7-73.9); Platelet Count 174 T/CUMM (130-400); Red Blood Count 2.89 MC/CUMM (3.8-5.5); Red Cell Distribution Width 17.4 % (9.3-17.3); White Blood Count 8.7 T/CUMM (4-12)
[2022-02-08 05:55] LABS: Calcium 8.9 MG/DL (8.5-10.1); Osmolality,Calculated 277.1 MOS/KG (273-304); Potassium 5.2 MMOL/L (3.5-5.1)
[2022-02-08] MEDS: LORATADINE 10 MG TABLET PO SCH (08:09)
[2022-02-08] MEDS: cycloSPORINE OPH EMUL 1 VIAL BOTH EYES SCH ×2 (08:09→21:54)
[2022-02-08] MEDS: HYDROXYCHLOROQUINE 200 MG TABLET PO SCH ×2 (08:09→21:15)
[2022-02-08] MEDS: POLYETHYLENE GLYCOL POWDER 17 GM PACK PO SCH (08:09)
[2022-02-08] MEDS: MAGNESIUM OXIDE 400 MG TABLET PO SCH (08:09)
[2022-02-08] MEDS: PANTOPRAZOLE 40 MG TABLET PO SCH (08:09)
[2022-02-08] MEDS: allopurinoL 100 MG TABLET PO SCH (08:09)
[2022-02-08] MEDS: predniSONE 5 MG TABLET PO SCH (08:10)
[2022-02-08] MEDS: ANASTROZOLE 1 MG TABLET PO SCH (08:10)
[2022-02-08] MEDS ORDERED: SODIUM POLYSTYRENE SULFATE 15 GM/60 ML BOTTLE PO ONE (08:28)
[2022-02-08] MEDS: cloNIDine 0.1 MG TABLET PO SCH ×2 (08:49→21:15)
[2022-02-08] MEDS: NON-FORMULARY MEDICATION (Menthol [Biofreeze (Menthol)] 4 % Gel) TOP SCH (08:49)
[2022-02-08 13:51] LABS: Basophils % 0.3 % (0.0-0.8); Eosinophils # 0.1 10*3/uL (0.0-0.87); Eosinophils % 1.9 % (0.00-10.9); Hematocrit 21.3 VOL% (35.7-47.0); Hemoglobin 6.5 GM/DL (12.0-16.0); Immature Granulocytes % 1.4 %; Immature Granulocytes Absolute 0.09 #; Lymphocytes # 0.7 10*3/uL (1.4-4.0); Lymphocytes % 10.5 % (21.3-54.2); Mean Corpuscular HGB Conc 30.5 GM/DL (32-36); Mean Corpuscular Volume 91.8 FL (87-102); Mean Platelet Volume 9.2 FL (9.6-12.0); Monocytes # 0.7 10*3/uL (0.11-0.8); Monocytes % 10.7 % (1.7-12.7); NRBC # 0.07 10*3/uL; Neutrophils % 75.2 % (38.7-73.9); Platelet Count 148 T/CUMM (130-400); Red Blood Count 2.32 MC/CUMM (3.8-5.5); Red Cell Distribution Width 17.6 % (9.3-17.3); White Blood Count 6.5 T/CUMM (4-12)
[2022-02-08 14:02] LABS: INR 1.1; PT Patient Result 12.2 SECS (10.5-12.0); Partial Thromboplastin Time 47.2 SECS (23.7-32.9)
[2022-02-08] MEDS ORDERED: SODIUM CHLORIDE 0.9% 1,000 ML IV PRN (14:15)
[2022-02-08] MEDS: ONDANSETRON 4 MG/2 ML VIAL IV PRN (15:19)
[2022-02-08] MEDS ORDERED: LORazepam 2 MG/1 ML VIAL IV PRN (16:26)
[2022-02-08] MEDS ORDERED: MORPHINE 2 MG/1 ML SYRINGE IV PRN (16:26)
[2022-02-08 16:44] LABS: Bilirubin,Urine Negative (Negative); Blood, Urine Moderate mg/dL (Negative); Glucose,Urine (UA) Negative (Negative); Ketones,Urine Negative (Negative); Nitrite,Urine Negative (Negative); Protein,Urine 100 mg/dL (Negative); Urine Appearance Turbid (Clear); Urine Color Yellow (Yellow); Urine Specific Gravity 1.025 (1.001-1.035); Urine Urobilinogen 0.2 eU/dL (<2.0)
[2022-02-08 16:47] LABS: Bacteria,Urine Many /HPF (Few); Mucus,Urine Moderate /LPF (Occasional); RBC,Urine 85 /HPF (0-4)
[2022-02-08] MEDS: HYDROmorphone PCA 30 MG/30 ML SYRINGE IV SCH (17:25)
[2022-02-08] MEDS: MONTELUKAST 10 MG TABLET PO SCH (21:15)
[2022-02-08] MEDS: ROSUVASTATIN 20 MG TABLET PO SCH (21:15)
[2022-02-08 22:46] LABS: Calcium 8.5 MG/DL (8.5-10.1); Osmolality,Calculated 300.6 MOS/KG (273-304)
[2022-02-08 22:48] LABS: Potassium 2.2 MMOL/L (3.5-5.1)
[2022-02-08 23:00] LABS: Basophils % 0.5 % (0.0-0.8); Eosinophils # 0.1 10*3/uL (0.0-0.87); Eosinophils % 1.6 % (0.00-10.9); Hemoglobin 9.7 GM/DL (12.0-16.0); Immature Granulocytes % 0.8 %; Immature Granulocytes Absolute 0.06 #; Lymphocytes # 0.9 10*3/uL (1.4-4.0); Lymphocytes % 11.8 % (21.3-54.2); Mean Corpuscular HGB Conc 31.3 GM/DL (32-36); Mean Corpuscular Volume 90.4 FL (87-102); Mean Platelet Volume 8.9 FL (9.6-12.0); Monocytes % 12.2 % (1.7-12.7); NRBC # 0.06 10*3/uL; Neutrophils % 73.1 % (38.7-73.9); Platelet Count 174 T/CUMM (130-400); Red Blood Count 3.43 MC/CUMM (3.8-5.5); Red Cell Distribution Width 17.1 % (9.3-17.3)
[2022-02-08 23:57] LABS: Calcium 8.6 MG/DL (8.5-10.1); Osmolality,Calculated 284.5 MOS/KG (273-304); Potassium 5.4 MMOL/L (3.5-5.1)
[2022-02-09] MEDS: SODIUM CHLORIDE 0.9% 1,000 ML IV SCH ×4 (02:00→18:34)
[2022-02-09] MEDS: ALBUTEROL/IPRATROPIUM 3 ML NEB RESP TX SCH ×8 (02:05→23:51)
[2022-02-09 03:57] LABS: Basophils # 0.1 10*3/uL (0.0-0.2); Basophils % 0.7 % (0.0-0.8); Eosinophils # 0.2 10*3/uL (0.0-0.87); Eosinophils % 2.3 % (0.00-10.9); Hematocrit 30.7 VOL% (35.7-47.0); Hemoglobin 9.5 GM/DL (12.0-16.0); Immature Granulocytes % 0.7 %; Immature Granulocytes Absolute 0.05 #; Lymphocytes % 13.7 % (21.3-54.2); Mean Corpuscular HGB Conc 30.9 GM/DL (32-36); Mean Corpuscular Volume 90.8 FL (87-102); Mean Platelet Volume 9.2 FL (9.6-12.0); Monocytes # 0.8 10*3/uL (0.11-0.8); Monocytes % 11.1 % (1.7-12.7); NRBC # 0.06 10*3/uL; Neutrophils % 71.5 % (38.7-73.9); Platelet Count 177 T/CUMM (130-400); Red Blood Count 3.38 MC/CUMM (3.8-5.5); Red Cell Distribution Width 17.3 % (9.3-17.3); White Blood Count 7.4 T/CUMM (4-12)
[2022-02-09 04:12] LABS: Albumin 2.2 G/DL (3.4-5.0); Bilirubin,Total 0.4 MG/DL (0.20-1.00); Calcium 8.6 MG/DL (8.5-10.1); Osmolality,Calculated 282.7 MOS/KG (273-304); Potassium 5.1 MMOL/L (3.5-5.1)
[2022-02-09] MEDS: NON-FORMULARY MEDICATION (Menthol [Biofreeze (Menthol)] 4 % Gel) TOP SCH (08:55)
[2022-02-09] MEDS: cilostazoL 50 MG TABLET PO SCH ×2 (09:14→20:03)
[2022-02-09] MEDS: POLYETHYLENE GLYCOL POWDER 17 GM PACK PO SCH (09:14)
[2022-02-09] MEDS: HYDROXYCHLOROQUINE 200 MG TABLET PO SCH ×2 (09:15→20:03)
[2022-02-09] MEDS: allopurinoL 100 MG TABLET PO SCH (09:15)
[2022-02-09] MEDS: ANASTROZOLE 1 MG TABLET PO SCH (09:15)
[2022-02-09] MEDS: cloNIDine 0.1 MG TABLET PO SCH ×2 (09:15→20:04)
[2022-02-09] MEDS: MAGNESIUM OXIDE 400 MG TABLET PO SCH (09:17)
[2022-02-09] MEDS: PANTOPRAZOLE 40 MG TABLET PO SCH (09:17)
[2022-02-09] MEDS: LORATADINE 10 MG TABLET PO SCH (09:18)
[2022-02-09] MEDS: predniSONE 5 MG TABLET PO SCH (09:18)
[2022-02-09] MEDS: cycloSPORINE OPH EMUL 1 VIAL BOTH EYES SCH ×2 (09:19→20:26)
[2022-02-09] MEDS ORDERED: cefTRIAXone 1,000 MG in SODIUM CHLORIDE 0.9% 100 ML IV SCH (11:00)
[2022-02-09] MEDS: traMADol 50 MG TABLET PO SCH ×2 (11:31→20:27)
[2022-02-09] MEDS: amLODIPine 5 MG TABLET PO SCH (11:33)
[2022-02-09 12:05] LABS: % Iron Saturation 19.4 % (18-50); Ferritin 958.9 ng/mL (8-252)
[2022-02-09 12:55] LABS: Folate 7.14 NG/ML (5.38-24.0)
[2022-02-09] MEDS: HYDROmorphone 1 MG/1 ML SYRINGE IV PRN ×2 (14:07→15:06)
[2022-02-09] MEDS: METHOCARBAMOL 500 MG TABLET PO PRN ×2 (14:34→20:07)
[2022-02-09] MEDS ORDERED: FERRIC GLUCONATE COMPLEX 125 MG in SODIUM CHLORIDE 0.9% 100 ML IV ONE (15:00)
[2022-02-09] MEDS: fentaNYL 100 MCG/2 ML VIAL IV PRN ×6 (16:36→23:25)
[2022-02-09] MEDS: fentaNYL 25 MCG/HR PATCH TRANSDERM SCH (17:47)
[2022-02-09] MEDS: LACTULOSE 20 GM/30 ML UDCUP PO PRN (20:03)
[2022-02-09] MEDS: COLCHICINE 0.6 MG CAPSULE PO PRN (20:04)
[2022-02-09] MEDS: MONTELUKAST 10 MG TABLET PO SCH (20:04)
[2022-02-09] MEDS: ROSUVASTATIN 20 MG TABLET PO SCH (20:04)
[2022-02-09] MEDS ORDERED: HYDROmorphone 1 MG/1 ML SYRINGE IV ONE (21:29)
[2022-02-09] MEDS: CYANOCOBALAMIN 500 MCG TABLET PO SCH (21:54)
[2022-02-10] MEDS: MELATONIN 3 MG TABLET PO PRN ×2 (00:33→20:10)
[2022-02-10] MEDS: fentaNYL 100 MCG/2 ML VIAL IV PRN ×6 (00:33→21:19)
[2022-02-10] MEDS ORDERED: LORazepam 2 MG/1 ML VIAL IV ONE ×3 (01:46→23:30)
[2022-02-10] MEDS ORDERED: HYDROmorphone 1 MG/1 ML SYRINGE IV ONE ×3 (01:47→23:30)
[2022-02-10] MEDS: ALBUTEROL/IPRATROPIUM 3 ML NEB RESP TX SCH ×2 (03:40→07:26)
[2022-02-10 04:02] LABS: Basophils % 0.4 % (0.0-0.8); Eosinophils # 0.2 10*3/uL (0.0-0.87); Hematocrit 30.2 VOL% (35.7-47.0); Hemoglobin 9.2 GM/DL (12.0-16.0); Immature Granulocytes % 1.1 %; Immature Granulocytes Absolute 0.09 #; Lymphocytes # 0.8 10*3/uL (1.4-4.0); Mean Corpuscular HGB Conc 30.5 GM/DL (32-36); Mean Corpuscular Volume 91.2 FL (87-102); Mean Platelet Volume 8.9 FL (9.6-12.0); Monocytes # 0.8 10*3/uL (0.11-0.8); Monocytes % 9.9 % (1.7-12.7); NRBC # 0.05 10*3/uL; Neutrophils % 76.6 % (38.7-73.9); Platelet Count 183 T/CUMM (130-400); Red Blood Count 3.31 MC/CUMM (3.8-5.5); Red Cell Distribution Width 17.2 % (9.3-17.3); White Blood Count 8.2 T/CUMM (4-12)
[2022-02-10 04:17] LABS: Albumin 2.1 G/DL (3.4-5.0); Bilirubin,Total 0.4 MG/DL (0.20-1.00); Calcium 8.8 MG/DL (8.5-10.1); Osmolality,Calculated 286.5 MOS/KG (273-304); Potassium 4.9 MMOL/L (3.5-5.1)
[2022-02-10] MEDS: SODIUM CHLORIDE 0.9% 1,000 ML IV SCH ×3 (06:17→22:19)
[2022-02-10] MEDS: CYANOCOBALAMIN 500 MCG TABLET PO SCH ×2 (08:21→20:10)
[2022-02-10] MEDS: FERROUS SULFATE 325 MG TABLET PO SCH ×2 (08:21→20:10)
[2022-02-10] MEDS: ANASTROZOLE 1 MG TABLET PO SCH (08:21)
[2022-02-10] MEDS: MAGNESIUM OXIDE 400 MG TABLET PO SCH (08:21)
[2022-02-10] MEDS: CHOLECALCIFEROL 1,000 UNIT TABLET PO SCH (08:22)
[2022-02-10] MEDS: cilostazoL 50 MG TABLET PO SCH ×2 (08:22→20:10)
[2022-02-10] MEDS: PANTOPRAZOLE 40 MG TABLET PO SCH (08:22)
[2022-02-10] MEDS: LORATADINE 10 MG TABLET PO SCH (08:22)
[2022-02-10] MEDS: traMADol 50 MG TABLET PO SCH ×2 (08:22→20:11)
[2022-02-10] MEDS: HYDROXYCHLOROQUINE 200 MG TABLET PO SCH ×2 (08:22→20:10)
[2022-02-10] MEDS: cloNIDine 0.1 MG TABLET PO SCH ×2 (08:22→20:10)
[2022-02-10] MEDS: CYCLOBENZAPRINE 10 MG TABLET PO PRN ×2 (08:22→21:19)
[2022-02-10] MEDS: amLODIPine 5 MG TABLET PO SCH (08:22)
[2022-02-10] MEDS: allopurinoL 100 MG TABLET PO SCH (08:22)
[2022-02-10] MEDS: cycloSPORINE OPH EMUL 1 VIAL BOTH EYES SCH ×2 (08:23→20:22)
[2022-02-10] MEDS: methylPREDNISolone SOD SUC 125 MG/2 ML VIAL IV SCH ×2 (08:23→16:37)
[2022-02-10] MEDS: NON-FORMULARY MEDICATION (Menthol [Biofreeze (Menthol)] 4 % Gel) TOP SCH (08:33)
[2022-02-10] MEDS ORDERED: diphenhydrAMINE CAP 25 MG CAPSULE PO PRN (09:44)
[2022-02-10] MEDS ORDERED: ALBUTEROL/IPRATROPIUM 3 ML NEB RESP TX PRN (09:45)
[2022-02-10] MEDS: FAMOTIDINE 20 MG/2 ML VIAL IV SCH (10:01)
[2022-02-10] MEDS: POLYETHYLENE GLYCOL POWDER 17 GM PACK PO SCH (10:01)
[2022-02-10] MEDS: ONDANSETRON 4 MG/2 ML VIAL IV PRN (10:47)
[2022-02-10] MEDS: DIAZEPAM 5 MG TABLET PO PRN (19:03)
[2022-02-10] MEDS: ROSUVASTATIN 20 MG TABLET PO SCH (20:10)
[2022-02-10] MEDS: MONTELUKAST 10 MG TABLET PO SCH (20:11)
[2022-02-11] MEDS: methylPREDNISolone SOD SUC 125 MG/2 ML VIAL IV SCH ×3 (02:30→17:21)
[2022-02-11 03:39] LABS: Basophils % 0.2 % (0.0-0.8); Hematocrit 32.8 VOL% (35.7-47.0); Hemoglobin 10.3 GM/DL (12.0-16.0); Immature Granulocytes % 1.2 %; Immature Granulocytes Absolute 0.07 #; Lymphocytes # 0.5 10*3/uL (1.4-4.0); Lymphocytes % 7.6 % (21.3-54.2); Mean Corpuscular HGB Conc 31.4 GM/DL (32-36); Mean Corpuscular Volume 89.4 FL (87-102); Mean Platelet Volume 9.1 FL (9.6-12.0); Monocytes # 0.2 10*3/uL (0.11-0.8); Monocytes % 3.3 % (1.7-12.7); Neutrophils % 87.7 % (38.7-73.9); Platelet Count 228 T/CUMM (130-400); Red Blood Count 3.67 MC/CUMM (3.8-5.5); Red Cell Distribution Width 16.6 % (9.3-17.3); White Blood Count 6.1 T/CUMM (4-12)
[2022-02-11 03:55] LABS: Albumin 2.3 G/DL (3.4-5.0); Bilirubin,Total 0.4 MG/DL (0.20-1.00); Calcium 9.2 MG/DL (8.5-10.1); Osmolality,Calculated 285.7 MOS/KG (273-304); Potassium 4.8 MMOL/L (3.5-5.1); Total Protein 5.7 G/DL (6.4-8.2)
[2022-02-11] MEDS: DIAZEPAM 5 MG TABLET PO PRN (05:41)
[2022-02-11] MEDS: fentaNYL 100 MCG/2 ML VIAL IV PRN (05:42)
[2022-02-11] MEDS: NON-FORMULARY MEDICATION (Menthol [Biofreeze (Menthol)] 4 % Gel) TOP SCH (10:15)
[2022-02-11] MEDS: cloNIDine 0.1 MG TABLET PO SCH ×2 (10:36→20:38)
[2022-02-11] MEDS: amLODIPine 5 MG TABLET PO SCH (10:36)
[2022-02-11] MEDS: cilostazoL 50 MG TABLET PO SCH ×2 (10:37→20:38)
[2022-02-11] MEDS: CYANOCOBALAMIN 500 MCG TABLET PO SCH ×2 (10:38→20:38)
[2022-02-11] MEDS: CHOLECALCIFEROL 1,000 UNIT TABLET PO SCH (10:38)
[2022-02-11] MEDS: carvediloL 6.25 MG TABLET PO SCH ×2 (10:38→20:39)
[2022-02-11] MEDS: MAGNESIUM OXIDE 400 MG TABLET PO SCH (10:39)
[2022-02-11] MEDS: HYDROXYCHLOROQUINE 200 MG TABLET PO SCH ×2 (10:40→20:39)
[2022-02-11] MEDS: FERROUS SULFATE 325 MG TABLET PO SCH ×2 (10:40→20:39)
[2022-02-11] MEDS: ANASTROZOLE 1 MG TABLET PO SCH (10:40)
[2022-02-11] MEDS: allopurinoL 100 MG TABLET PO SCH (10:40)
[2022-02-11] MEDS: LORATADINE 10 MG TABLET PO SCH (10:41)
[2022-02-11] MEDS: POLYETHYLENE GLYCOL POWDER 17 GM PACK PO SCH (10:42)
[2022-02-11] MEDS: cycloSPORINE OPH EMUL 1 VIAL BOTH EYES SCH ×2 (10:43→21:26)
[2022-02-11] MEDS: traMADol 50 MG TABLET PO SCH ×2 (10:46→16:56)
[2022-02-11] MEDS: FAMOTIDINE 20 MG/2 ML VIAL IV SCH (11:24)
[2022-02-11] MEDS: PANTOPRAZOLE 40 MG TABLET PO SCH (11:25)
[2022-02-11] MEDS ORDERED: LACTULOSE 20 GM/30 ML UDCUP PO ONE (11:30)
[2022-02-11] MEDS: SODIUM CHLORIDE 0.9% 1,000 ML IV SCH (16:50)
[2022-02-11] MEDS: MONTELUKAST 10 MG TABLET PO SCH (20:38)
[2022-02-11] MEDS: ROSUVASTATIN 20 MG TABLET PO SCH (20:39)
[2022-02-11] MEDS: DOCUSATE SODIUM 100 MG CAPSULE PO SCH (20:39)
[2022-02-12] MEDS: traMADol 50 MG TABLET PO SCH ×4 (00:11→20:54)
[2022-02-12] MEDS: SODIUM CHLORIDE 0.9% 1,000 ML IV SCH ×2 (02:15→20:55)
[2022-02-12] MEDS: methylPREDNISolone SOD SUC 125 MG/2 ML VIAL IV SCH ×3 (02:16→17:03)
[2022-02-12 05:13] LABS: Hemoglobin 9.7 GM/DL (12.0-16.0); Immature Granulocytes % 0.7 %; Immature Granulocytes Absolute 0.05 #; Lymphocytes # 0.4 10*3/uL (1.4-4.0); Mean Corpuscular HGB Conc 32.3 GM/DL (32-36); Mean Corpuscular Volume 87.2 FL (87-102); Mean Platelet Volume 9.1 FL (9.6-12.0); Monocytes # 0.3 10*3/uL (0.11-0.8); Monocytes % 3.8 % (1.7-12.7); Neutrophils % 90.5 % (38.7-73.9); Platelet Count 235 T/CUMM (130-400); Red Blood Count 3.44 MC/CUMM (3.8-5.5); Red Cell Distribution Width 16.7 % (9.3-17.3); White Blood Count 7.5 T/CUMM (4-12)
[2022-02-12 05:35] LABS: Albumin 2.1 G/DL (3.4-5.0); Bilirubin,Total 0.4 MG/DL (0.20-1.00); Calcium 9.1 MG/DL (8.5-10.1); Osmolality,Calculated 294.3 MOS/KG (273-304); Potassium 4.9 MMOL/L (3.5-5.1); Total Protein 5.3 G/DL (6.4-8.2)
[2022-02-12] MEDS: allopurinoL 100 MG TABLET PO SCH (09:13)
[2022-02-12] MEDS: FERROUS SULFATE 325 MG TABLET PO SCH ×2 (09:14→20:55)
[2022-02-12] MEDS: cilostazoL 50 MG TABLET PO SCH ×2 (09:14→20:54)
[2022-02-12] MEDS: DOCUSATE SODIUM 100 MG CAPSULE PO SCH ×2 (09:14→20:54)
[2022-02-12] MEDS: cloNIDine 0.1 MG TABLET PO SCH ×2 (09:14→20:57)
[2022-02-12] MEDS: PANTOPRAZOLE 40 MG TABLET PO SCH (09:14)
[2022-02-12] MEDS: CHOLECALCIFEROL 1,000 UNIT TABLET PO SCH (09:14)
[2022-02-12] MEDS: POLYETHYLENE GLYCOL POWDER 17 GM PACK PO SCH (09:14)
[2022-02-12] MEDS: MAGNESIUM OXIDE 400 MG TABLET PO SCH (09:14)
[2022-02-12] MEDS: HYDROXYCHLOROQUINE 200 MG TABLET PO SCH ×2 (09:14→20:55)
[2022-02-12] MEDS: LORATADINE 10 MG TABLET PO SCH (09:14)
[2022-02-12] MEDS: amLODIPine 5 MG TABLET PO SCH (09:14)
[2022-02-12] MEDS: carvediloL 6.25 MG TABLET PO SCH ×2 (09:14→20:54)
[2022-02-12] MEDS: CYANOCOBALAMIN 500 MCG TABLET PO SCH ×2 (09:14→20:55)
[2022-02-12] MEDS: ANASTROZOLE 1 MG TABLET PO SCH (09:14)
[2022-02-12] MEDS: FAMOTIDINE 20 MG/2 ML VIAL IV SCH (09:22)
[2022-02-12] MEDS: fentaNYL 25 MCG/HR PATCH TRANSDERM SCH (09:22)
[2022-02-12] MEDS: cycloSPORINE OPH EMUL 1 VIAL BOTH EYES SCH ×2 (14:16→20:53)
[2022-02-12] MEDS: cefTRIAXone 2,000 MG in SODIUM CHLORIDE 0.9% 100 ML IV SCH (14:16)
[2022-02-12] MEDS: NON-FORMULARY MEDICATION (Menthol [Biofreeze (Menthol)] 4 % Gel) TOP SCH (14:31)
[2022-02-12] MEDS: MONTELUKAST 10 MG TABLET PO SCH (20:54)
[2022-02-12] MEDS: ROSUVASTATIN 20 MG TABLET PO SCH (20:55)
[2022-02-13] MEDS: methylPREDNISolone SOD SUC 125 MG/2 ML VIAL IV SCH ×3 (01:10→16:47)
[2022-02-13 05:26] LABS: Hematocrit 28.5 VOL% (35.7-47.0); Hemoglobin 9.1 GM/DL (12.0-16.0); Immature Granulocytes % 0.5 %; Immature Granulocytes Absolute 0.04 #; Lymphocytes # 0.6 10*3/uL (1.4-4.0); Lymphocytes % 6.9 % (21.3-54.2); Mean Corpuscular HGB Conc 31.9 GM/DL (32-36); Mean Corpuscular Volume 88.8 FL (87-102); Mean Platelet Volume 9.4 FL (9.6-12.0); Monocytes # 0.4 10*3/uL (0.11-0.8); Monocytes % 4.5 % (1.7-12.7); NRBC # 0.15 10*3/uL; Neutrophils % 88.1 % (38.7-73.9); Platelet Count 242 T/CUMM (130-400); Red Blood Count 3.21 MC/CUMM (3.8-5.5); Red Cell Distribution Width 17.1 % (9.3-17.3); White Blood Count 8.3 T/CUMM (4-12)
[2022-02-13 05:41] LABS: Calcium 9.2 MG/DL (8.5-10.1); Osmolality,Calculated 292.5 MOS/KG (273-304)
[2022-02-13] MEDS: cloNIDine 0.1 MG TABLET PO SCH ×2 (10:15→21:03)
[2022-02-13] MEDS: LORATADINE 10 MG TABLET PO SCH (10:15)
[2022-02-13] MEDS: ANASTROZOLE 1 MG TABLET PO SCH (10:15)
[2022-02-13] MEDS: DOCUSATE SODIUM 100 MG CAPSULE PO SCH ×2 (10:15→21:02)
[2022-02-13] MEDS: carvediloL 6.25 MG TABLET PO SCH ×2 (10:15→21:03)
[2022-02-13] MEDS: PANTOPRAZOLE 40 MG TABLET PO SCH (10:16)
[2022-02-13] MEDS: POLYETHYLENE GLYCOL POWDER 17 GM PACK PO SCH (10:16)
[2022-02-13] MEDS: CYANOCOBALAMIN 500 MCG TABLET PO SCH ×2 (10:16→21:10)
[2022-02-13] MEDS: traMADol 50 MG TABLET PO SCH ×3 (10:16→21:03)
[2022-02-13] MEDS: FERROUS SULFATE 325 MG TABLET PO SCH ×2 (10:16→21:03)
[2022-02-13] MEDS: MAGNESIUM OXIDE 400 MG TABLET PO SCH (10:16)
[2022-02-13] MEDS: amLODIPine 5 MG TABLET PO SCH (10:16)
[2022-02-13] MEDS: cycloSPORINE OPH EMUL 1 VIAL BOTH EYES SCH ×2 (10:16→21:04)
[2022-02-13] MEDS: cilostazoL 50 MG TABLET PO SCH ×2 (10:16→21:03)
[2022-02-13] MEDS: NON-FORMULARY MEDICATION (Menthol [Biofreeze (Menthol)] 4 % Gel) TOP SCH (10:16)
[2022-02-13] MEDS: HYDROXYCHLOROQUINE 200 MG TABLET PO SCH ×2 (10:16→21:02)
[2022-02-13] MEDS: allopurinoL 100 MG TABLET PO SCH (10:17)
[2022-02-13] MEDS: CHOLECALCIFEROL 1,000 UNIT TABLET PO SCH (10:17)
[2022-02-13] MEDS: SODIUM CHLORIDE 0.9% 1,000 ML IV SCH (11:17)
[2022-02-13] MEDS: cefTRIAXone 2,000 MG in SODIUM CHLORIDE 0.9% 100 ML IV SCH (11:59)
[2022-02-13] MEDS ORDERED: TUBERCULIN SKIN TEST 0.1 ML SYRINGE INTRADERM ONE (15:00)
[2022-02-13] MEDS: ROSUVASTATIN 20 MG TABLET PO SCH (21:03)
[2022-02-13] MEDS: MONTELUKAST 10 MG TABLET PO SCH (21:03)
[2022-02-14] MEDS: SODIUM CHLORIDE 0.9% 1,000 ML IV SCH ×2 (00:47→15:12)
[2022-02-14] MEDS: methylPREDNISolone SOD SUC 125 MG/2 ML VIAL IV SCH ×3 (01:36→16:52)
[2022-02-14 05:46] LABS: Basophils % 0.1 % (0.0-0.8); Hematocrit 26.9 VOL% (35.7-47.0); Hemoglobin 8.6 GM/DL (12.0-16.0); Immature Granulocytes % 1.1 %; Immature Granulocytes Absolute 0.08 #; Lymphocytes # 0.5 10*3/uL (1.4-4.0); Lymphocytes % 6.5 % (21.3-54.2); Mean Corpuscular Volume 87.9 FL (87-102); Mean Platelet Volume 9.4 FL (9.6-12.0); Monocytes # 0.4 10*3/uL (0.11-0.8); Monocytes % 4.8 % (1.7-12.7); NRBC # 0.09 10*3/uL; Neutrophils % 87.5 % (38.7-73.9); Platelet Count 241 T/CUMM (130-400); Red Blood Count 3.06 MC/CUMM (3.8-5.5); Red Cell Distribution Width 16.9 % (9.3-17.3); White Blood Count 7.4 T/CUMM (4-12)
[2022-02-14 06:03] LABS: Calcium 8.2 MG/DL (8.5-10.1); Osmolality,Calculated 296.4 MOS/KG (273-304); Potassium 4.6 MMOL/L (3.5-5.1)
[2022-02-14] MEDS: POLYETHYLENE GLYCOL POWDER 17 GM PACK PO SCH (09:07)
[2022-02-14] MEDS: cloNIDine 0.1 MG TABLET PO SCH ×2 (09:08→21:58)
[2022-02-14] MEDS: CYANOCOBALAMIN 500 MCG TABLET PO SCH ×2 (09:08→21:58)
[2022-02-14] MEDS: DOCUSATE SODIUM 100 MG CAPSULE PO SCH ×2 (09:08→21:58)
[2022-02-14] MEDS: MAGNESIUM OXIDE 400 MG TABLET PO SCH (09:08)
[2022-02-14] MEDS: PANTOPRAZOLE 40 MG TABLET PO SCH (09:09)
[2022-02-14] MEDS: amLODIPine 5 MG TABLET PO SCH (09:09)
[2022-02-14] MEDS: HYDROXYCHLOROQUINE 200 MG TABLET PO SCH ×2 (09:09→21:59)
[2022-02-14] MEDS: carvediloL 6.25 MG TABLET PO SCH ×2 (09:09→21:58)
[2022-02-14] MEDS: CHOLECALCIFEROL 1,000 UNIT TABLET PO SCH (09:09)
[2022-02-14] MEDS: allopurinoL 100 MG TABLET PO SCH (09:09)
[2022-02-14] MEDS: FERROUS SULFATE 325 MG TABLET PO SCH ×2 (09:09→21:59)
[2022-02-14] MEDS: LORATADINE 10 MG TABLET PO SCH (09:09)
[2022-02-14] MEDS: ANASTROZOLE 1 MG TABLET PO SCH (09:09)
[2022-02-14] MEDS: traMADol 50 MG TABLET PO SCH ×4 (09:11→21:59)
[2022-02-14] MEDS: cilostazoL 50 MG TABLET PO SCH ×2 (09:11→21:58)
[2022-02-14] MEDS: cycloSPORINE OPH EMUL 1 VIAL BOTH EYES SCH ×2 (09:21→21:59)
[2022-02-14] MEDS: NON-FORMULARY MEDICATION (Menthol [Biofreeze (Menthol)] 4 % Gel) TOP SCH (10:08)
[2022-02-14] MEDS: NITROFURANTOIN MACRO/MONO 100 MG CAPSULE PO SCH (14:23)
[2022-02-14 16:31] LABS: Glucose,Urine (UA) Negative (Negative); Ketones,Urine Negative (Negative); Mucus,Urine Occasional /LPF (Occasional); Protein,Urine Trace mg/dL (Negative); RBC,Urine 6 /HPF (0-4); Squamous Epithelial Cell,Urine Occasional /HPF (0-10); Urine Appearance Clear (Clear); Urine Color Yellow (Yellow); Urine Specific Gravity 1.025 (1.001-1.035); Urine pH 5.5 (4.5-8.0)
[2022-02-14 16:32] LABS: Bilirubin,Urine Negative (Negative); Blood, Urine Small mg/dL (Negative); Nitrite,Urine Negative (Negative); Urine Urobilinogen 0.2 eU/dL (<2.0)
[2022-02-14] MEDS: LACTULOSE 20 GM/30 ML UDCUP PO PRN (16:53)
[2022-02-14] MEDS: ROSUVASTATIN 20 MG TABLET PO SCH (21:58)
[2022-02-14] MEDS: MONTELUKAST 10 MG TABLET PO SCH (21:58)
[2022-02-14] MEDS: MELATONIN 3 MG TABLET PO PRN (21:59)
[2022-02-15] MEDS: methylPREDNISolone SOD SUC 125 MG/2 ML VIAL IV SCH ×3 (03:30→16:00)
[2022-02-15] MEDS: NITROFURANTOIN MACRO/MONO 100 MG CAPSULE PO SCH (03:30)
[2022-02-15] MEDS: SODIUM CHLORIDE 0.9% 1,000 ML IV SCH ×2 (04:17→15:21)
[2022-02-15] MEDS: allopurinoL 100 MG TABLET PO SCH (08:10)
[2022-02-15] MEDS: fentaNYL 25 MCG/HR PATCH TRANSDERM SCH (08:10)
[2022-02-15] MEDS: CYANOCOBALAMIN 500 MCG TABLET PO SCH ×2 (08:11→23:20)
[2022-02-15] MEDS: HYDROXYCHLOROQUINE 200 MG TABLET PO SCH ×2 (08:11→23:19)
[2022-02-15] MEDS: cilostazoL 50 MG TABLET PO SCH ×2 (08:11→23:20)
[2022-02-15] MEDS: traMADol 50 MG TABLET PO SCH ×3 (08:11→23:20)
[2022-02-15] MEDS: amLODIPine 5 MG TABLET PO SCH (08:11)
[2022-02-15] MEDS: ANASTROZOLE 1 MG TABLET PO SCH (08:11)
[2022-02-15] MEDS: DOCUSATE SODIUM 100 MG CAPSULE PO SCH ×2 (08:11→23:19)
[2022-02-15] MEDS: carvediloL 6.25 MG TABLET PO SCH ×2 (08:12→23:19)
[2022-02-15] MEDS: cloNIDine 0.1 MG TABLET PO SCH ×2 (08:12→23:19)
[2022-02-15] MEDS: MAGNESIUM OXIDE 400 MG TABLET PO SCH (08:12)
[2022-02-15] MEDS: CHOLECALCIFEROL 1,000 UNIT TABLET PO SCH (08:12)
[2022-02-15] MEDS: PANTOPRAZOLE 40 MG TABLET PO SCH (08:12)
[2022-02-15] MEDS: LORATADINE 10 MG TABLET PO SCH (08:12)
[2022-02-15] MEDS: FERROUS SULFATE 325 MG TABLET PO SCH ×2 (08:13→23:19)
[2022-02-15] MEDS: CEFUROXIME 250 MG TABLET PO SCH ×2 (08:13→23:19)
[2022-02-15] MEDS: POLYETHYLENE GLYCOL POWDER 17 GM PACK PO SCH (08:14)
[2022-02-15] MEDS: cycloSPORINE OPH EMUL 1 VIAL BOTH EYES SCH ×2 (08:14→23:20)
[2022-02-15] MEDS: NON-FORMULARY MEDICATION (Menthol [Biofreeze (Menthol)] 4 % Gel) TOP SCH (08:15)
[2022-02-15] MEDS: SODIUM BICARBONATE 650 MG TABLET PO SCH ×2 (14:18→23:20)
[2022-02-15] MEDS: ROSUVASTATIN 20 MG TABLET PO SCH (23:19)
[2022-02-15] MEDS: MONTELUKAST 10 MG TABLET PO SCH (23:20)
[2022-02-16] MEDS: methylPREDNISolone SOD SUC 125 MG/2 ML VIAL IV SCH ×2 (00:16→09:37)
[2022-02-16] MEDS: SODIUM CHLORIDE 0.9% 1,000 ML IV SCH (06:18)
[2022-02-16 07:50] LABS: Basophils % 0.1 % (0.0-0.8); Hemoglobin 9.8 GM/DL (12.0-16.0); Immature Granulocytes % 1.6 %; Immature Granulocytes Absolute 0.18 #; Lymphocytes # 0.7 10*3/uL (1.4-4.0); Lymphocytes % 6.3 % (21.3-54.2); Mean Corpuscular HGB Conc 32.7 GM/DL (32-36); Mean Platelet Volume 9.2 FL (9.6-12.0); Monocytes # 0.8 10*3/uL (0.11-0.8); Monocytes % 7.3 % (1.7-12.7); NRBC # 0.08 10*3/uL; Neutrophils % 84.7 % (38.7-73.9); Platelet Count 257 T/CUMM (130-400); Red Blood Count 3.49 MC/CUMM (3.8-5.5); Red Cell Distribution Width 16.6 % (9.3-17.3); White Blood Count 11.4 T/CUMM (4-12)
[2022-02-16] MEDS: SODIUM BICARBONATE 650 MG TABLET PO SCH ×2 (09:34→15:44)
[2022-02-16] MEDS: cloNIDine 0.1 MG TABLET PO SCH (09:34)
[2022-02-16] MEDS: carvediloL 6.25 MG TABLET PO SCH (09:34)
[2022-02-16] MEDS: amLODIPine 5 MG TABLET PO SCH (09:35)
[2022-02-16] MEDS: traMADol 50 MG TABLET PO SCH ×2 (09:35→15:45)
[2022-02-16] MEDS: CYANOCOBALAMIN 500 MCG TABLET PO SCH (09:35)
[2022-02-16] MEDS: CHOLECALCIFEROL 1,000 UNIT TABLET PO SCH (09:35)
[2022-02-16] MEDS: HYDROXYCHLOROQUINE 200 MG TABLET PO SCH (09:35)
[2022-02-16] MEDS: PANTOPRAZOLE 40 MG TABLET PO SCH (09:35)
[2022-02-16] MEDS: allopurinoL 100 MG TABLET PO SCH (09:36)
[2022-02-16] MEDS: CEFUROXIME 250 MG TABLET PO SCH (09:36)
[2022-02-16] MEDS: POLYETHYLENE GLYCOL POWDER 17 GM PACK PO SCH (09:36)
[2022-02-16] MEDS: MAGNESIUM OXIDE 400 MG TABLET PO SCH (09:36)
[2022-02-16] MEDS: LORATADINE 10 MG TABLET PO SCH (09:36)
[2022-02-16] MEDS: cilostazoL 50 MG TABLET PO SCH (09:36)
[2022-02-16] MEDS: FERROUS SULFATE 325 MG TABLET PO SCH (09:36)
[2022-02-16] MEDS: ANASTROZOLE 1 MG TABLET PO SCH (09:36)
[2022-02-16] MEDS: DOCUSATE SODIUM 100 MG CAPSULE PO SCH (09:36)
[2022-02-16] MEDS: NON-FORMULARY MEDICATION (Menthol [Biofreeze (Menthol)] 4 % Gel) TOP SCH (09:48)
[2022-02-16] MEDS: cycloSPORINE OPH EMUL 1 VIAL BOTH EYES SCH (09:49)
[2022-02-16 12:18] VITALS: BP 143/64
== END 2022-02-16 15:47 | DRG 252 ==
LOC: N.CL 10:59 → N.5E 17:45 → SUATTDRO 02-04 10:40 → N.5E 02-04 10:40 → N.CC 02-05 16:10 → N.TELES 02-11 16:04
PROVIDERS: ADMIT Internal Medicine Cardiovascular Disease; ATTEND Internal Medicine

== ENCOUNTER 2022-04-10 14:27 | Inpatient (IN) ==
[2022-04-10 15:50] LABS: Basophils % 0.6 % (0.0-0.8); Eosinophils # 0.2 10*3/uL (0.0-0.87); Eosinophils % 2.7 % (0.00-10.9); Hematocrit 24.5 VOL% (35.7-47.0); Hemoglobin 7.6 GM/DL (12.0-16.0); Immature Granulocytes % 0.6 %; Immature Granulocytes Absolute 0.04 #; Lymphocytes # 2.3 10*3/uL (1.4-4.0); Lymphocytes % 34.5 % (21.3-54.2); Mean Corpuscular Volume 92.8 FL (87-102); Mean Platelet Volume 9.4 FL (9.6-12.0); Monocytes # 0.8 10*3/uL (0.11-0.8); Monocytes % 11.6 % (1.7-12.7); Platelet Count 277 T/CUMM (130-400); Red Blood Count 2.64 MC/CUMM (3.8-5.5); Red Cell Distribution Width 17.1 % (9.3-17.3); White Blood Count 6.7 T/CUMM (4-12)
[2022-04-10] MEDS ORDERED: HYDROmorphone 1 MG/1 ML SYRINGE IV STA ×2 (15:53→17:10)
[2022-04-10 16:14] LABS: Albumin 2.5 G/DL (3.4-5.0); Bilirubin,Total 0.5 MG/DL (0.20-1.00); Calcium 9.4 MG/DL (8.5-10.1); Osmolality,Calculated 274.8 MOS/KG (273-304); Potassium 3.3 MMOL/L (3.5-5.1); Total Protein 6.2 G/DL (6.4-8.2)
[2022-04-10] MEDS ORDERED: PIPERACILLIN/TAZOBACTAM 3,375 MG in SODIUM CHLORIDE 0.9% 100 ML IV STA (16:45)
[2022-04-10] MEDS ORDERED: GLUCAGON 1 MG VIAL IM PRN (17:37)
[2022-04-10] MEDS ORDERED: ACETAMINOPHEN 325 MG TABLET PO PRN ×2 (17:37→18:04)
[2022-04-10] MEDS ORDERED: DEXTROSE 10% 250 ML BAG IV PRN (17:37)
[2022-04-10] MEDS ORDERED: ALBUTEROL/IPRATROPIUM 3 ML NEB RESP TX PRN (18:04)
[2022-04-10] MEDS ORDERED: SIMETHICONE CHEW 80 MG TABLET PO PRN (18:04)
[2022-04-10] MEDS ORDERED: ONDANSETRON ODT 4 MG TABLET PO PRN (18:04)
[2022-04-10] MEDS ORDERED: LACTULOSE 20 GM/30 ML UDCUP PO PRN (18:04)
[2022-04-10] MEDS ORDERED: BISACODYL 5 MG TABLET PO PRN (18:04)
[2022-04-10] MEDS ORDERED: CARBAMIDE PEROXIDE 6.5% BOTH EARS SCH (21:00)
[2022-04-10] MEDS ORDERED: ENOXAPARIN 30 MG/0.3 ML SYRINGE SUBCUT SCH (21:00)
[2022-04-10] MEDS ORDERED: cilostazoL 50 MG TABLET PO SCH (21:00)
[2022-04-10] MEDS: MONTELUKAST 10 MG TABLET PO SCH (22:18)
[2022-04-10] MEDS: ROSUVASTATIN 20 MG TABLET PO SCH (22:18)
[2022-04-10] MEDS: cilostazoL 100 MG TABLET PO SCH (22:18)
[2022-04-10] MEDS: fentaNYL 12 MCG/HR PATCH TRANSDERM SCH (22:19)
[2022-04-10] MEDS: SODIUM BICARBONATE 650 MG TABLET PO SCH (22:19)
[2022-04-10] MEDS: carvediloL 6.25 MG TABLET PO SCH (22:19)
[2022-04-10] MEDS: cloNIDine 0.1 MG TABLET PO SCH (22:19)
[2022-04-10] MEDS: cycloSPORINE OPH EMUL 1 VIAL BOTH EYES SCH (22:20)
[2022-04-10] MEDS: FERROUS SULFATE 325 MG TABLET PO SCH (22:20)
[2022-04-10] MEDS: MELATONIN 3 MG TABLET PO SCH (22:20)
[2022-04-10] MEDS: MORPHINE 2 MG/1 ML SYRINGE IV PRN (23:55)
[2022-04-11] MEDS: PIPERACILLIN/TAZOBACTAM 3,375 MG in SODIUM CHLORIDE 0.9% 100 ML IV SCH ×3 (01:28→18:53)
[2022-04-11 05:07] LABS: Basophils % 0.5 % (0.0-0.8); Eosinophils % 0.2 % (0.00-10.9); Hematocrit 22.9 VOL% (35.7-47.0); Hemoglobin 6.9 GM/DL (12.0-16.0); Immature Granulocytes % 0.2 %; Immature Granulocytes Absolute 0.01 #; Lymphocytes # 2.7 10*3/uL (1.4-4.0); Mean Corpuscular HGB Conc 30.1 GM/DL (32-36); Mean Corpuscular Volume 93.9 FL (87-102); Mean Platelet Volume 8.9 FL (9.6-12.0); Monocytes # 0.7 10*3/uL (0.11-0.8); Monocytes % 11.3 % (1.7-12.7); Neutrophils % 43.8 % (38.7-73.9); Platelet Count 271 T/CUMM (130-400); Red Blood Count 2.44 MC/CUMM (3.8-5.5); Red Cell Distribution Width 17.1 % (9.3-17.3); White Blood Count 6.2 T/CUMM (4-12)
[2022-04-11 05:39] LABS: Albumin 2.4 G/DL (3.4-5.0); Bilirubin,Total 0.5 MG/DL (0.20-1.00); Calcium 9.6 MG/DL (8.5-10.1); Osmolality,Calculated 279.4 MOS/KG (273-304); Potassium 2.8 MMOL/L (3.5-5.1); Total Protein 5.5 G/DL (6.4-8.2)
[2022-04-11 05:48] LABS: Risk Ratio 1.55; Uric Acid 5.6 MG/DL (2.6-6.0)
[2022-04-11] MEDS ORDERED: POTASSIUM CHLORIDE 20 MEQ TABLET PO ONE ×2 (08:08→12:00)
[2022-04-11] MEDS ORDERED: SODIUM CHLORIDE 0.9% 1,000 ML IV PRN (08:15)
[2022-04-11] MEDS: ANASTROZOLE 1 MG TABLET PO SCH (08:50)
[2022-04-11] MEDS: FERROUS SULFATE 325 MG TABLET PO SCH ×2 (08:50→22:12)
[2022-04-11] MEDS: CHOLECALCIFEROL 1,000 UNIT TABLET PO SCH (08:50)
[2022-04-11] MEDS: PANTOPRAZOLE 40 MG TABLET PO SCH (08:50)
[2022-04-11] MEDS: cilostazoL 100 MG TABLET PO SCH ×2 (08:51→22:12)
[2022-04-11] MEDS: carvediloL 6.25 MG TABLET PO SCH ×2 (08:51→22:11)
[2022-04-11] MEDS: MAGNESIUM OXIDE 400 MG TABLET PO SCH (08:51)
[2022-04-11] MEDS: SODIUM BICARBONATE 650 MG TABLET PO SCH ×3 (08:51→22:11)
[2022-04-11] MEDS: LORATADINE 10 MG TABLET PO SCH (08:51)
[2022-04-11] MEDS: predniSONE 5 MG TABLET PO SCH (08:51)
[2022-04-11] MEDS: POLYETHYLENE GLYCOL POWDER 17 GM PACK PO SCH (08:51)
[2022-04-11] MEDS: allopurinoL 100 MG TABLET PO SCH (08:51)
[2022-04-11] MEDS: cloNIDine 0.1 MG TABLET PO SCH ×2 (08:51→22:12)
[2022-04-11] MEDS: cycloSPORINE OPH EMUL 1 VIAL BOTH EYES SCH ×2 (08:52→22:14)
[2022-04-11] MEDS: MORPHINE 2 MG/1 ML SYRINGE IV PRN (18:54)
[2022-04-11] MEDS: MELATONIN 3 MG TABLET PO SCH (22:11)
[2022-04-11] MEDS: ENOXAPARIN 40 MG/0.4 ML SYRINGE SUBCUT SCH (22:11)
[2022-04-11] MEDS: MONTELUKAST 10 MG TABLET PO SCH (22:11)
[2022-04-11] MEDS: ROSUVASTATIN 20 MG TABLET PO SCH (22:12)
[2022-04-12] MEDS: PIPERACILLIN/TAZOBACTAM 3,375 MG in SODIUM CHLORIDE 0.9% 100 ML IV SCH ×3 (01:13→16:25)
[2022-04-12 06:31] LABS: Basophils % 0.6 % (0.0-0.8); Eosinophils # 0.2 10*3/uL (0.0-0.87); Eosinophils % 2.9 % (0.00-10.9); Hemoglobin 9.5 GM/DL (12.0-16.0); Immature Granulocytes % 0.4 %; Immature Granulocytes Absolute 0.03 #; Lymphocytes # 2.6 10*3/uL (1.4-4.0); Mean Corpuscular HGB Conc 31.7 GM/DL (32-36); Mean Corpuscular Volume 92.6 FL (87-102); Mean Platelet Volume 9.3 FL (9.6-12.0); Monocytes # 0.9 10*3/uL (0.11-0.8); Monocytes % 12.6 % (1.7-12.7); Neutrophils % 46.5 % (38.7-73.9); Platelet Count 310 T/CUMM (130-400); Red Blood Count 3.24 MC/CUMM (3.8-5.5); Red Cell Distribution Width 16.4 % (9.3-17.3); White Blood Count 6.9 T/CUMM (4-12)
[2022-04-12 06:50] LABS: Calcium 9.9 MG/DL (8.5-10.1); Osmolality,Calculated 277.4 MOS/KG (273-304); Potassium 3.3 MMOL/L (3.5-5.1)
[2022-04-12 07:05] LABS: % Iron Saturation 30.2 % (18-50)
[2022-04-12] MEDS ORDERED: POTASSIUM CHLORIDE 20 MEQ TABLET PO ONE (07:54)
[2022-04-12] MEDS: FERROUS SULFATE 325 MG TABLET PO SCH ×2 (09:18→20:22)
[2022-04-12] MEDS: POLYETHYLENE GLYCOL POWDER 17 GM PACK PO SCH (09:18)
[2022-04-12] MEDS: SODIUM BICARBONATE 650 MG TABLET PO SCH ×3 (09:18→20:22)
[2022-04-12] MEDS: cloNIDine 0.1 MG TABLET PO SCH ×2 (09:18→20:23)
[2022-04-12] MEDS: ANASTROZOLE 1 MG TABLET PO SCH (09:18)
[2022-04-12] MEDS: LORATADINE 10 MG TABLET PO SCH (09:18)
[2022-04-12] MEDS: predniSONE 5 MG TABLET PO SCH (09:19)
[2022-04-12] MEDS: CHOLECALCIFEROL 1,000 UNIT TABLET PO SCH (09:19)
[2022-04-12] MEDS: PANTOPRAZOLE 40 MG TABLET PO SCH (09:19)
[2022-04-12] MEDS: MAGNESIUM OXIDE 400 MG TABLET PO SCH (09:19)
[2022-04-12] MEDS: allopurinoL 100 MG TABLET PO SCH (09:19)
[2022-04-12] MEDS: cilostazoL 100 MG TABLET PO SCH ×2 (09:19→20:22)
[2022-04-12] MEDS: MORPHINE 2 MG/1 ML SYRINGE IV PRN ×3 (09:20→20:27)
[2022-04-12] MEDS: cycloSPORINE OPH EMUL 1 VIAL BOTH EYES SCH ×2 (09:20→20:23)
[2022-04-12] MEDS: carvediloL 6.25 MG TABLET PO SCH ×2 (09:20→20:22)
[2022-04-12] MEDS: ONDANSETRON 4 MG/2 ML VIAL IV PRN ×2 (09:21→16:22)
[2022-04-12] MEDS: MELATONIN 3 MG TABLET PO SCH (20:22)
[2022-04-12] MEDS: MONTELUKAST 10 MG TABLET PO SCH (20:23)
[2022-04-12] MEDS: ROSUVASTATIN 20 MG TABLET PO SCH (20:23)
[2022-04-12] MEDS: ENOXAPARIN 40 MG/0.4 ML SYRINGE SUBCUT SCH (20:26)
[2022-04-13] MEDS: MORPHINE 2 MG/1 ML SYRINGE IV PRN ×3 (00:09→21:34)
[2022-04-13] MEDS: PIPERACILLIN/TAZOBACTAM 3,375 MG in SODIUM CHLORIDE 0.9% 100 ML IV SCH ×3 (00:28→16:43)
[2022-04-13 05:25] LABS: Basophils % 0.5 % (0.0-0.8); Eosinophils # 0.2 10*3/uL (0.0-0.87); Eosinophils % 2.5 % (0.00-10.9); Hematocrit 27.8 VOL% (35.7-47.0); Hemoglobin 8.7 GM/DL (12.0-16.0); Immature Granulocytes % 0.3 %; Immature Granulocytes Absolute 0.02 #; Lymphocytes # 2.7 10*3/uL (1.4-4.0); Lymphocytes % 37.4 % (21.3-54.2); Mean Corpuscular HGB Conc 31.3 GM/DL (32-36); Mean Corpuscular Volume 93.6 FL (87-102); Mean Platelet Volume 9.3 FL (9.6-12.0); Monocytes % 13.7 % (1.7-12.7); Neutrophils % 45.6 % (38.7-73.9); Platelet Count 305 T/CUMM (130-400); Red Blood Count 2.97 MC/CUMM (3.8-5.5); Red Cell Distribution Width 16.6 % (9.3-17.3); White Blood Count 7.3 T/CUMM (4-12)
[2022-04-13 05:44] LABS: Calcium 9.7 MG/DL (8.5-10.1); Osmolality,Calculated 278.4 MOS/KG (273-304); Potassium 3.5 MMOL/L (3.5-5.1)
[2022-04-13] MEDS: carvediloL 6.25 MG TABLET PO SCH ×2 (08:34→21:36)
[2022-04-13] MEDS: MAGNESIUM OXIDE 400 MG TABLET PO SCH (08:34)
[2022-04-13] MEDS: SODIUM BICARBONATE 650 MG TABLET PO SCH ×3 (08:34→21:34)
[2022-04-13] MEDS: LORATADINE 10 MG TABLET PO SCH (08:34)
[2022-04-13] MEDS: ANASTROZOLE 1 MG TABLET PO SCH (08:34)
[2022-04-13] MEDS: PANTOPRAZOLE 40 MG TABLET PO SCH (08:34)
[2022-04-13] MEDS: cloNIDine 0.1 MG TABLET PO SCH ×2 (08:34→21:34)
[2022-04-13] MEDS: cilostazoL 100 MG TABLET PO SCH ×2 (08:34→21:34)
[2022-04-13] MEDS: predniSONE 5 MG TABLET PO SCH (08:34)
[2022-04-13] MEDS: FERROUS SULFATE 325 MG TABLET PO SCH ×2 (08:34→21:34)
[2022-04-13] MEDS: CHOLECALCIFEROL 1,000 UNIT TABLET PO SCH (08:35)
[2022-04-13] MEDS: allopurinoL 100 MG TABLET PO SCH (08:35)
[2022-04-13] MEDS: cycloSPORINE OPH EMUL 1 VIAL BOTH EYES SCH ×2 (08:35→21:34)
[2022-04-13] MEDS: fentaNYL 12 MCG/HR PATCH TRANSDERM SCH (08:37)
[2022-04-13] MEDS ORDERED: fentaNYL 25 MCG/HR PATCH TRANSDERM SCH (09:00)
[2022-04-13] MEDS: POLYETHYLENE GLYCOL POWDER 17 GM PACK PO SCH (09:39)
[2022-04-13 19:42] LABS: Folate 10.38 NG/ML (5.38-24.0)
[2022-04-13] MEDS: ROSUVASTATIN 20 MG TABLET PO SCH (21:34)
[2022-04-13] MEDS: MELATONIN 3 MG TABLET PO SCH (21:34)
[2022-04-13] MEDS: MONTELUKAST 10 MG TABLET PO SCH (21:34)
[2022-04-13] MEDS: ENOXAPARIN 40 MG/0.4 ML SYRINGE SUBCUT SCH (22:43)
[2022-04-14] MEDS: PIPERACILLIN/TAZOBACTAM 3,375 MG in SODIUM CHLORIDE 0.9% 100 ML IV SCH ×2 (01:55→10:52)
[2022-04-14] MEDS: MORPHINE 2 MG/1 ML SYRINGE IV PRN ×2 (02:28→11:46)
[2022-04-14 02:47] LABS: Basophils % 0.5 % (0.0-0.8); Eosinophils # 0.2 10*3/uL (0.0-0.87); Eosinophils % 2.2 % (0.00-10.9); Hematocrit 27.4 VOL% (35.7-47.0); Hemoglobin 8.7 GM/DL (12.0-16.0); Immature Granulocytes % 0.5 %; Immature Granulocytes Absolute 0.04 #; Lymphocytes # 2.8 10*3/uL (1.4-4.0); Lymphocytes % 34.7 % (21.3-54.2); Mean Corpuscular HGB Conc 31.8 GM/DL (32-36); Mean Corpuscular Volume 92.9 FL (87-102); Mean Platelet Volume 8.9 FL (9.6-12.0); Monocytes # 1.1 10*3/uL (0.11-0.8); Monocytes % 13.3 % (1.7-12.7); Neutrophils % 48.8 % (38.7-73.9); Platelet Count 325 T/CUMM (130-400); Red Blood Count 2.95 MC/CUMM (3.8-5.5); Red Cell Distribution Width 16.4 % (9.3-17.3); White Blood Count 8.1 T/CUMM (4-12)
[2022-04-14 03:04] LABS: Calcium 9.2 MG/DL (8.5-10.1); Osmolality,Calculated 278.4 MOS/KG (273-304); Potassium 3.1 MMOL/L (3.5-5.1)
[2022-04-14] MEDS: cilostazoL 100 MG TABLET PO SCH (10:52)
[2022-04-14] MEDS: carvediloL 6.25 MG TABLET PO SCH (10:52)
[2022-04-14] MEDS: POLYETHYLENE GLYCOL POWDER 17 GM PACK PO SCH (10:52)
[2022-04-14] MEDS: LORATADINE 10 MG TABLET PO SCH (10:53)
[2022-04-14] MEDS: POTASSIUM CHLORIDE 20 MEQ TABLET PO SCH ×2 (10:53→11:46)
[2022-04-14] MEDS: cloNIDine 0.1 MG TABLET PO SCH (10:53)
[2022-04-14] MEDS: predniSONE 5 MG TABLET PO SCH (10:53)
[2022-04-14] MEDS: SODIUM BICARBONATE 650 MG TABLET PO SCH ×2 (10:53→15:15)
[2022-04-14] MEDS: MAGNESIUM OXIDE 400 MG TABLET PO SCH (10:53)
[2022-04-14] MEDS: cycloSPORINE OPH EMUL 1 VIAL BOTH EYES SCH (10:54)
[2022-04-14] MEDS: PANTOPRAZOLE 40 MG TABLET PO SCH (10:54)
[2022-04-14] MEDS: ANASTROZOLE 1 MG TABLET PO SCH (10:54)
[2022-04-14] MEDS: FERROUS SULFATE 325 MG TABLET PO SCH (10:54)
[2022-04-14] MEDS: CHOLECALCIFEROL 1,000 UNIT TABLET PO SCH (10:54)
[2022-04-14] MEDS: allopurinoL 100 MG TABLET PO SCH (11:46)
[2022-04-14 15:43] VITALS: BP 155/51
[2022-04-14] MEDS ORDERED: carvediloL 12.5 MG TABLET PO SCH (17:00)
[2022-04-14] MEDS ORDERED: AMOXICILLIN/CLAV 875 MG TABLET PO SCH (21:00)
== END 2022-04-14 15:14 | DRG 300 ==
LOC: EDBD → EDUNIT# → N.ED 14:27 → N.EDINP 17:37 → SUATTDRO 17:37 → N.5E 19:28
PROVIDERS: ADMIT Internal Medicine; ATTEND Emergency Medicine

== ENCOUNTER 2022-06-10 11:39 | Observation (INO) ==
[2022-06-10 12:42] LABS: Bacteria,Urine Occasional /HPF (Few); Bilirubin,Urine Negative (Negative); Blood, Urine Small mg/dL (Negative); Glucose,Urine (UA) Negative (Negative); Ketones,Urine Negative (Negative); Mucus,Urine Occasional /LPF (Occasional); Nitrite,Urine Negative (Negative); Protein,Urine 30 mg/dL (Negative); RBC,Urine 6 /HPF (0-4); Squamous Epithelial Cell,Urine Occasional /HPF (0-10); Urine Appearance CLOUDY (Clear); Urine Color Yellow (Yellow); Urine Specific Gravity 1.006 (1.001-1.035); Urine Urobilinogen < 2.0 eU/dL (<2.0)
[2022-06-10 13:10] LABS: Basophils % 0.4 % (0.0-0.8); Eosinophils # 0.2 10*3/uL (0.0-0.87); Eosinophils % 2.9 % (0.00-10.9); Hemoglobin 9.8 GM/DL (12.0-16.0); Immature Granulocytes % 0.3 %; Immature Granulocytes Absolute 0.02 #; Lymphocytes # 2.6 10*3/uL (1.4-4.0); Lymphocytes % 35.4 % (21.3-54.2); Mean Corpuscular HGB Conc 32.7 GM/DL (32-36); Mean Corpuscular Volume 90.1 FL (87-102); Mean Platelet Volume 9.7 FL (9.6-12.0); Monocytes # 0.8 10*3/uL (0.11-0.8); Monocytes % 10.5 % (1.7-12.7); Neutrophils % 50.5 % (38.7-73.9); Platelet Count 238 T/CUMM (130-400); Red Blood Count 3.33 MC/CUMM (3.8-5.5); Red Cell Distribution Width 15.4 % (9.3-17.3); White Blood Count 7.2 T/CUMM (4-12)
[2022-06-10 13:30] LABS: Albumin 2.9 G/DL (3.4-5.0); Bilirubin,Total 0.4 MG/DL (0.20-1.00); Osmolality,Calculated 285.1 MOS/KG (273-304); Total Protein 6.3 G/DL (6.4-8.2)
[2022-06-10 13:34] LABS: Potassium 2.5 MMOL/L (3.5-5.1)
[2022-06-10] MEDS ORDERED: cefTRIAXone 1,000 MG in SODIUM CHLORIDE 0.9% 100 ML IV STA (14:03)
[2022-06-10] MEDS ORDERED: POTASSIUM CHLORIDE 20 MEQ TABLET PO STA ×2 (14:04→14:21)
[2022-06-10] MEDS ORDERED: ONDANSETRON 4 MG/2 ML VIAL IV PRN (14:22)
[2022-06-10] MEDS ORDERED: ACETAMINOPHEN 325 MG TABLET PO PRN (14:22)
[2022-06-10] MEDS: LINEZOLID 600 MG TABLET PO SCH ×2 (15:00→21:26)
[2022-06-10] MEDS: ENOXAPARIN 40 MG/0.4 ML SYRINGE SUBCUT SCH (15:00)
[2022-06-10] MEDS ORDERED: LORATADINE 10 MG TABLET PO PRN (16:19)
[2022-06-10] MEDS ORDERED: LACTULOSE 20 GM/30 ML UDCUP PO PRN (16:38)
[2022-06-10] MEDS: carvediloL 12.5 MG TABLET PO SCH (18:13)
[2022-06-10] MEDS ORDERED: fentaNYL 25 MCG/HR PATCH TRANSDERM SCH (20:00)
[2022-06-10] MEDS ORDERED: ROSUVASTATIN 20 MG TABLET PO SCH (21:00)
[2022-06-10] MEDS ORDERED: MONTELUKAST 10 MG TABLET PO SCH (21:00)
[2022-06-10] MEDS: HYDROXYCHLOROQUINE 200 MG TABLET PO SCH (21:26)
[2022-06-10] MEDS: FERROUS SULFATE 325 MG TABLET PO SCH (21:26)
[2022-06-10] MEDS: cilostazoL 50 MG TABLET PO SCH (21:26)
[2022-06-10] MEDS: cloNIDine 0.1 MG TABLET PO SCH (21:27)
[2022-06-10] MEDS: cycloSPORINE OPH EMUL 1 VIAL BOTH EYES SCH (21:27)
[2022-06-11] MEDS: traMADol 50 MG TABLET PO PRN ×2 (01:11→09:26)
[2022-06-11 05:53] LABS: Basophils % 0.7 % (0.0-0.8); Eosinophils # 0.2 10*3/uL (0.0-0.87); Eosinophils % 3.1 % (0.00-10.9); Hemoglobin 9.4 GM/DL (12.0-16.0); Immature Granulocytes % 0.3 %; Immature Granulocytes Absolute 0.02 #; Lymphocytes # 2.5 10*3/uL (1.4-4.0); Lymphocytes % 41.2 % (21.3-54.2); Mean Corpuscular HGB Conc 32.4 GM/DL (32-36); Mean Corpuscular Volume 90.3 FL (87-102); Mean Platelet Volume 9.9 FL (9.6-12.0); Monocytes # 0.7 10*3/uL (0.11-0.8); Monocytes % 11.9 % (1.7-12.7); Neutrophils % 42.8 % (38.7-73.9); Platelet Count 219 T/CUMM (130-400); Red Blood Count 3.21 MC/CUMM (3.8-5.5); Red Cell Distribution Width 15.2 % (9.3-17.3); White Blood Count 6.1 T/CUMM (4-12)
[2022-06-11 06:17] LABS: Osmolality,Calculated 280.4 MOS/KG (273-304); Potassium 3.1 MMOL/L (3.5-5.1)
[2022-06-11] MEDS ORDERED: POTASSIUM CHLORIDE 20 MEQ TABLET PO ONE (08:00)
[2022-06-11] MEDS ORDERED: predniSONE 5 MG TABLET PO SCH (09:00)
[2022-06-11] MEDS ORDERED: ANASTROZOLE 1 MG TABLET PO SCH (09:00)
[2022-06-11] MEDS ORDERED: amLODIPine 5 MG TABLET PO SCH ×2 (09:00)
[2022-06-11] MEDS ORDERED: CHOLECALCIFEROL 1,000 UNIT TABLET PO SCH (09:00)
[2022-06-11] MEDS ORDERED: allopurinoL 100 MG TABLET PO SCH (09:00)
[2022-06-11] MEDS ORDERED: POLYETHYLENE GLYCOL POWDER 17 GM PACK PO SCH (09:00)
[2022-06-11] MEDS ORDERED: PANTOPRAZOLE 40 MG TABLET PO SCH (09:00)
[2022-06-11] MEDS: carvediloL 12.5 MG TABLET PO SCH (09:13)
[2022-06-11] MEDS: PHENAZOPYRIDINE 95 MG TABLET PO SCH ×2 (09:14→12:04)
[2022-06-11] MEDS: cilostazoL 50 MG TABLET PO SCH (09:14)
[2022-06-11] MEDS: LINEZOLID 600 MG TABLET PO SCH (09:14)
[2022-06-11] MEDS: FERROUS SULFATE 325 MG TABLET PO SCH (09:16)
[2022-06-11] MEDS: HYDROXYCHLOROQUINE 200 MG TABLET PO SCH (09:16)
[2022-06-11] MEDS: cycloSPORINE OPH EMUL 1 VIAL BOTH EYES SCH (09:18)
[2022-06-11] MEDS: cloNIDine 0.1 MG TABLET PO SCH (09:18)
[2022-06-11] MEDS: ENOXAPARIN 40 MG/0.4 ML SYRINGE SUBCUT SCH (09:19)
[2022-06-11 12:04] VITALS: BP 164/66
== END 2022-06-11 13:47 | disposition home health service (06) ==
LOC: N.ED 11:39 → N.5E 11:39
PROVIDERS: ADMIT Internal Medicine; ATTEND Internal Medicine

== ENCOUNTER 2022-07-18 13:31 | Inpatient (IN) ==
[2022-07-18] MEDS ORDERED: ONDANSETRON 4 MG/2 ML VIAL IV ONE (14:14)
[2022-07-18] MEDS ORDERED: SODIUM CHLORIDE 0.9% 1,000 ML IV STA (14:14)
[2022-07-18 15:07] LABS: Basophils % 0.4 % (0.0-0.8); Eosinophils % 0.4 % (0.00-10.9); Hematocrit 32.9 VOL% (35.7-47.0); Hemoglobin 10.6 GM/DL (12.0-16.0); Immature Granulocytes % 0.3 %; Immature Granulocytes Absolute 0.02 #; Lymphocytes # 2.5 10*3/uL (1.4-4.0); Lymphocytes % 34.5 % (21.3-54.2); Mean Corpuscular HGB Conc 32.2 GM/DL (32-36); Mean Corpuscular Volume 88.9 FL (87-102); Monocytes # 1.1 10*3/uL (0.11-0.8); Monocytes % 14.7 % (1.7-12.7); NRBC # 0.02 10*3/uL; Neutrophils % 49.7 % (38.7-73.9); Platelet Count 126 T/CUMM (130-400); Red Cell Distribution Width 17.7 % (9.3-17.3); White Blood Count 7.3 T/CUMM (4-12)
[2022-07-18 15:17] LABS: INR 1.2; PT Patient Result 12.8 SECS (10.1-12.1)
[2022-07-18 15:28] LABS: Albumin 3.2 G/DL (3.4-5.0); Bilirubin,Total 0.5 MG/DL (0.20-1.00); Calcium 9.7 MG/DL (8.5-10.1); Osmolality,Calculated 280.7 MOS/KG (273-304); Potassium 3.9 MMOL/L (3.5-5.1); Total Protein 6.3 G/DL (6.4-8.2)
[2022-07-18 17:27] LABS: RBC,Urine 89 /HPF (0-4); Squamous Epithelial Cell,Urine Moderate /HPF (0-10)
[2022-07-18 17:28] LABS: Glucose,Urine (UA) Negative (Negative); Ketones,Urine 40 mg/dL (Negative); Nitrite,Urine Negative (Negative); Protein,Urine 30 mg/dL (Negative); Urine Appearance Cloudy (Clear); Urine Color Yellow (Yellow); Urine Specific Gravity > 1.030 (1.001-1.035); Urine pH 5.5 (4.5-8.0)
[2022-07-18 17:29] LABS: Bilirubin,Urine Moderate mg/dL (Negative); Blood, Urine Small mg/dL (Negative); Urine Urobilinogen 0.2 eU/dL (<2.0)
[2022-07-18] MEDS ORDERED: metroNIDAZOLE INJ 500 MG/100 ML PREMIX IV STA (17:40)
[2022-07-18] MEDS ORDERED: PIPERACILLIN/TAZOBACTAM 3,375 MG in SODIUM CHLORIDE 0.9% 100 ML IV STA (17:40)
[2022-07-18] MEDS ORDERED: SIMETHICONE CHEW 80 MG TABLET PO PRN (18:05)
[2022-07-18] MEDS ORDERED: LORATADINE 10 MG TABLET PO PRN (18:05)
[2022-07-18] MEDS ORDERED: ALBUTEROL/IPRATROPIUM 3 ML NEB RESP TX PRN (18:05)
[2022-07-18] MEDS ORDERED: SODIUM CHLORIDE 0.45% 1,000 ML IV SCH (19:30)
[2022-07-19] MEDS: cycloSPORINE OPH EMUL 1 VIAL BOTH EYES SCH ×3 (00:59→21:00)
[2022-07-19] MEDS: LINEZOLID 600 MG TABLET PO SCH ×2 (01:00→09:26)
[2022-07-19] MEDS: carvediloL 12.5 MG TABLET PO SCH ×2 (01:00→09:28)
[2022-07-19] MEDS: cloNIDine 0.1 MG TABLET PO SCH ×2 (01:00→09:32)
[2022-07-19] MEDS: MONTELUKAST 10 MG TABLET PO SCH ×2 (01:00→21:00)
[2022-07-19] MEDS: cilostazoL 50 MG TABLET PO SCH ×3 (01:00→21:00)
[2022-07-19] MEDS: ENOXAPARIN 40 MG/0.4 ML SYRINGE SUBCUT SCH ×2 (01:02→21:00)
[2022-07-19] MEDS: MELATONIN 3 MG TABLET PO PRN (01:16)
[2022-07-19] MEDS: ONDANSETRON 4 MG/2 ML VIAL IV PRN ×2 (01:20→09:39)
[2022-07-19 06:23] LABS: Basophils % 0.4 % (0.0-0.8); Eosinophils # 0.2 10*3/uL (0.0-0.87); Eosinophils % 2.4 % (0.00-10.9); Hematocrit 31.9 VOL% (35.7-47.0); Hemoglobin 10.5 GM/DL (12.0-16.0); Immature Granulocytes % 0.4 %; Immature Granulocytes Absolute 0.03 #; Lymphocytes # 2.4 10*3/uL (1.4-4.0); Lymphocytes % 31.8 % (21.3-54.2); Mean Corpuscular HGB Conc 32.9 GM/DL (32-36); Mean Corpuscular Volume 87.4 FL (87-102); Mean Platelet Volume 12.2 FL (9.6-12.0); Monocytes # 1.1 10*3/uL (0.11-0.8); Monocytes % 14.8 % (1.7-12.7); NRBC # 0.02 10*3/uL; Neutrophils % 50.2 % (38.7-73.9); Platelet Count 182 T/CUMM (130-400); Red Blood Count 3.65 MC/CUMM (3.8-5.5); Red Cell Distribution Width 17.8 % (9.3-17.3); White Blood Count 7.6 T/CUMM (4-12)
[2022-07-19 06:52] LABS: Calcium 9.1 MG/DL (8.5-10.1); Osmolality,Calculated 284.4 MOS/KG (273-304); Potassium 3.8 MMOL/L (3.5-5.1)
[2022-07-19] MEDS: PANTOPRAZOLE 40 MG TABLET PO SCH (09:26)
[2022-07-19] MEDS: POTASSIUM CHLORIDE 20 MEQ TABLET PO SCH (09:26)
[2022-07-19] MEDS: predniSONE 5 MG TABLET PO SCH (09:27)
[2022-07-19] MEDS: ANASTROZOLE 1 MG TABLET PO SCH (09:27)
[2022-07-19] MEDS ORDERED: DEXTROSE 5% NACL 0.45% 1,000 ML IV SCH (10:30)
[2022-07-19] MEDS ORDERED: LOPERAMIDE 2 MG CAPSULE PO ONE (13:58)
[2022-07-19] MEDS ORDERED: LOPERAMIDE 2 MG CAPSULE PO PRN (13:58)
[2022-07-19] MEDS: fentaNYL 12 MCG/HR PATCH TRANSDERM SCH (14:19)
[2022-07-19] MEDS: ONDANSETRON 4 MG/2 ML VIAL IV SCH ×2 (15:43→21:00)
[2022-07-19] MEDS: SODIUM BICARB INJ 50 MEQ in DEXTROSE 5% NACL 0.45% 1,000 ML IV SCH (16:43)
[2022-07-19] MEDS: traMADol 50 MG TABLET PO PRN (19:08)
[2022-07-19] MEDS: NYSTATIN 500,000 UNIT/5 ML UDCUP SWISH/SWAL SCH (21:00)
[2022-07-20] MEDS: ACETAMINOPHEN 325 MG TABLET PO PRN ×2 (00:07→17:54)
[2022-07-20] MEDS: SODIUM BICARB INJ 50 MEQ in DEXTROSE 5% NACL 0.45% 1,000 ML IV SCH ×2 (03:52→14:47)
[2022-07-20] MEDS: traMADol 50 MG TABLET PO PRN ×3 (03:57→22:56)
[2022-07-20] MEDS: ONDANSETRON 4 MG/2 ML VIAL IV SCH ×3 (05:55→22:40)
[2022-07-20 06:36] LABS: Basophils % 0.5 % (0.0-0.8); Eosinophils # 0.1 10*3/uL (0.0-0.87); Hematocrit 24.9 VOL% (35.7-47.0); Hemoglobin 8.6 GM/DL (12.0-16.0); Immature Granulocytes % 0.7 %; Immature Granulocytes Absolute 0.04 #; Lymphocytes # 1.8 10*3/uL (1.4-4.0); Lymphocytes % 29.9 % (21.3-54.2); Mean Corpuscular HGB Conc 34.5 GM/DL (32-36); Mean Corpuscular Volume 83.6 FL (87-102); Mean Platelet Volume 10.9 FL (9.6-12.0); Monocytes % 15.8 % (1.7-12.7); NRBC # 0.05 10*3/uL; Neutrophils % 51.1 % (38.7-73.9); Platelet Count 166 T/CUMM (130-400); Red Blood Count 2.98 MC/CUMM (3.8-5.5); Red Cell Distribution Width 17.5 % (9.3-17.3); White Blood Count 6.1 T/CUMM (4-12)
[2022-07-20 06:50] LABS: Hypochromia Slight; Lymphocytes 21 % (20-55); Microcytosis Slight; Platelet Estimate Adequate; Total Cells Counted 100
[2022-07-20 07:12] LABS: Albumin 2.5 G/DL (3.4-5.0); Bilirubin,Total 0.4 MG/DL (0.20-1.00); Calcium 8.3 MG/DL (8.5-10.1); Osmolality,Calculated 282.7 MOS/KG (273-304); Potassium 3.3 MMOL/L (3.5-5.1)
[2022-07-20] MEDS ORDERED: POTASSIUM CHLORIDE 20 MEQ TABLET PO ONE (09:00)
[2022-07-20] MEDS: PANTOPRAZOLE 40 MG TABLET PO SCH (10:17)
[2022-07-20] MEDS: NYSTATIN 500,000 UNIT/5 ML UDCUP SWISH/SWAL SCH ×4 (10:18→20:15)
[2022-07-20] MEDS: cycloSPORINE OPH EMUL 1 VIAL BOTH EYES SCH ×2 (10:18→22:39)
[2022-07-20] MEDS: POTASSIUM CHLORIDE 20 MEQ TABLET PO SCH (10:18)
[2022-07-20] MEDS: cilostazoL 50 MG TABLET PO SCH ×2 (10:19→20:14)
[2022-07-20] MEDS: ANASTROZOLE 1 MG TABLET PO SCH (10:19)
[2022-07-20] MEDS: predniSONE 5 MG TABLET PO SCH (10:19)
[2022-07-20] MEDS: metroNIDAZOLE INJ 500 MG/100 ML PREMIX IV SCH ×2 (15:11→22:41)
[2022-07-20] MEDS: CIPROFLOXACIN INJ 400 MG/200 ML PREMIX IV SCH (16:30)
[2022-07-20] MEDS: carvediloL 12.5 MG TABLET PO SCH (20:14)
[2022-07-20] MEDS: MELATONIN 3 MG TABLET PO PRN (20:14)
[2022-07-20] MEDS: MONTELUKAST 10 MG TABLET PO SCH (20:15)
[2022-07-20] MEDS: cloNIDine 0.1 MG TABLET PO SCH (20:15)
[2022-07-20] MEDS: ENOXAPARIN 40 MG/0.4 ML SYRINGE SUBCUT SCH (20:15)
[2022-07-21] MEDS: SODIUM BICARB INJ 50 MEQ in DEXTROSE 5% NACL 0.45% 1,000 ML IV SCH ×2 (03:08→15:42)
[2022-07-21] MEDS: CIPROFLOXACIN INJ 400 MG/200 ML PREMIX IV SCH ×2 (03:09→16:08)
[2022-07-21] MEDS: ONDANSETRON 4 MG/2 ML VIAL IV SCH ×3 (05:00→21:22)
[2022-07-21 05:22] LABS: Basophils % 0.3 % (0.0-0.8); Hematocrit 25.4 VOL% (35.7-47.0); Hemoglobin 8.5 GM/DL (12.0-16.0); Immature Granulocytes % 0.5 %; Immature Granulocytes Absolute 0.03 #; Lymphocytes # 2.4 10*3/uL (1.4-4.0); Lymphocytes % 39.5 % (21.3-54.2); Mean Corpuscular HGB Conc 33.5 GM/DL (32-36); Mean Corpuscular Volume 85.8 FL (87-102); Mean Platelet Volume 11.2 FL (9.6-12.0); Monocytes % 16.4 % (1.7-12.7); NRBC # 0.02 10*3/uL; Neutrophils % 43.3 % (38.7-73.9); Platelet Count 157 T/CUMM (130-400); Red Blood Count 2.96 MC/CUMM (3.8-5.5); Red Cell Distribution Width 17.2 % (9.3-17.3)
[2022-07-21 05:44] LABS: Alanine Aminotransferase 34 U/L (13-56); Albumin 2.4 G/DL (3.4-5.0); Alkaline Phosphatase 112 U/L (45-117); Aspartate Amino Transferase 37 U/L (0-37); Bilirubin,Total < 0.39 MG/DL (0.20-1.00); Blood Urea Nitrogen 23 MG/DL (7-18); Carbon Dioxide 24 MMOL/L (21-32); Chloride 106 MMOL/L (98-107); Glucose 114 MG/DL (74-106); Osmolality,Calculated 277.8 MOS/KG (273-304); Potassium 3.3 MMOL/L (3.5-5.1); Sodium 137 MMOL/L (136-145); Total Protein 4.9 G/DL (6.4-8.2)
[2022-07-21 05:51] LABS: Lymphocytes 30 % (20-55); Total Cells Counted 100
[2022-07-21 05:52] LABS: Acanthocytes Few
[2022-07-21 05:58] LABS: Microcytosis 1+; Target Cells Slight
[2022-07-21 05:59] LABS: Platelet Estimate Adequate
[2022-07-21] MEDS: metroNIDAZOLE INJ 500 MG/100 ML PREMIX IV SCH ×3 (06:10→23:16)
[2022-07-21] MEDS: cycloSPORINE OPH EMUL 1 VIAL BOTH EYES SCH ×2 (08:51→21:06)
[2022-07-21] MEDS: POTASSIUM CHLORIDE 20 MEQ TABLET PO SCH (08:51)
[2022-07-21] MEDS: cilostazoL 50 MG TABLET PO SCH ×2 (08:51→21:06)
[2022-07-21] MEDS: PANTOPRAZOLE 40 MG TABLET PO SCH (08:51)
[2022-07-21] MEDS: cloNIDine 0.1 MG TABLET PO SCH ×2 (08:51→21:07)
[2022-07-21] MEDS: carvediloL 12.5 MG TABLET PO SCH ×2 (08:51→21:07)
[2022-07-21] MEDS: ANASTROZOLE 1 MG TABLET PO SCH (08:51)
[2022-07-21] MEDS: NYSTATIN 500,000 UNIT/5 ML UDCUP SWISH/SWAL SCH ×4 (08:51→21:07)
[2022-07-21] MEDS: predniSONE 5 MG TABLET PO SCH (08:52)
[2022-07-21] MEDS ORDERED: POTASSIUM BICARB EFFERVESCENT 20 MEQ TAB.EFF PO ONE (16:22)
[2022-07-21] MEDS: traMADol 50 MG TABLET PO PRN (17:43)
[2022-07-21] MEDS: ENOXAPARIN 40 MG/0.4 ML SYRINGE SUBCUT SCH (21:06)
[2022-07-21] MEDS: ACETAMINOPHEN 325 MG TABLET PO PRN (21:07)
[2022-07-21] MEDS: MONTELUKAST 10 MG TABLET PO SCH (21:07)
[2022-07-22] MEDS: traMADol 50 MG TABLET PO PRN ×2 (01:38→22:00)
[2022-07-22] MEDS: CIPROFLOXACIN INJ 400 MG/200 ML PREMIX IV SCH (03:46)
[2022-07-22 05:56] LABS: Basophils % 0.3 % (0.0-0.8); Eosinophils # 0.1 10*3/uL (0.0-0.87); Eosinophils % 0.8 % (0.00-10.9); Hematocrit 25.5 VOL% (35.7-47.0); Hemoglobin 8.5 GM/DL (12.0-16.0); Immature Granulocytes % 0.5 %; Immature Granulocytes Absolute 0.03 #; Lymphocytes # 2.9 10*3/uL (1.4-4.0); Lymphocytes % 47.3 % (21.3-54.2); Mean Corpuscular HGB Conc 33.3 GM/DL (32-36); Mean Corpuscular Volume 86.4 FL (87-102); Mean Platelet Volume 11.2 FL (9.6-12.0); Monocytes # 0.9 10*3/uL (0.11-0.8); Monocytes % 14.4 % (1.7-12.7); NRBC # 0.02 10*3/uL; Neutrophils % 36.7 % (38.7-73.9); Platelet Count 147 T/CUMM (130-400); Red Blood Count 2.95 MC/CUMM (3.8-5.5); Red Cell Distribution Width 17.5 % (9.3-17.3); White Blood Count 6.1 T/CUMM (4-12)
[2022-07-22] MEDS: ONDANSETRON 4 MG/2 ML VIAL IV SCH ×3 (06:07→21:49)
[2022-07-22] MEDS: metroNIDAZOLE INJ 500 MG/100 ML PREMIX IV SCH (06:07)
[2022-07-22 06:23] LABS: Albumin 2.6 G/DL (3.4-5.0); Bilirubin,Total 0.4 MG/DL (0.20-1.00); Eosinophils 3 % (0-10); Lymphocytes 42 % (20-55); Osmolality,Calculated 275.7 MOS/KG (273-304); Platelet Estimate Adequate; Potassium 3.8 MMOL/L (3.5-5.1); Total Cells Counted 100; Total Protein 4.8 G/DL (6.4-8.2)
[2022-07-22 06:24] LABS: Hypochromia Slight
[2022-07-22] MEDS: PANTOPRAZOLE 40 MG TABLET PO SCH (09:27)
[2022-07-22] MEDS: POTASSIUM CHLORIDE 20 MEQ TABLET PO SCH (09:27)
[2022-07-22] MEDS: cloNIDine 0.1 MG TABLET PO SCH ×2 (09:27→21:50)
[2022-07-22] MEDS: predniSONE 5 MG TABLET PO SCH (09:27)
[2022-07-22] MEDS: cilostazoL 50 MG TABLET PO SCH ×2 (09:27→21:49)
[2022-07-22] MEDS: ANASTROZOLE 1 MG TABLET PO SCH (09:27)
[2022-07-22] MEDS: carvediloL 12.5 MG TABLET PO SCH ×2 (09:27→21:50)
[2022-07-22] MEDS: fentaNYL 12 MCG/HR PATCH TRANSDERM SCH (09:32)
[2022-07-22] MEDS: cycloSPORINE OPH EMUL 1 VIAL BOTH EYES SCH ×2 (09:32→22:00)
[2022-07-22] MEDS: NYSTATIN 500,000 UNIT/5 ML UDCUP SWISH/SWAL SCH ×4 (09:32→21:49)
[2022-07-22] MEDS: ACETAMINOPHEN 325 MG TABLET PO PRN (13:55)
[2022-07-22] MEDS: metroNIDAZOLE 500 MG TABLET PO SCH ×2 (14:05→21:49)
[2022-07-22] MEDS: ENOXAPARIN 40 MG/0.4 ML SYRINGE SUBCUT SCH (21:49)
[2022-07-22] MEDS: MELATONIN 3 MG TABLET PO PRN (21:50)
[2022-07-22] MEDS: CIPROFLOXACIN 500 MG TABLET PO SCH (21:50)
[2022-07-22] MEDS: MONTELUKAST 10 MG TABLET PO SCH (21:50)
[2022-07-23] MEDS: ONDANSETRON 4 MG/2 ML VIAL IV SCH ×2 (05:08→14:19)
[2022-07-23] MEDS: traMADol 50 MG TABLET PO PRN ×2 (05:08→13:16)
[2022-07-23 06:03] LABS: Basophils % 0.5 % (0.0-0.8); Eosinophils # 0.1 10*3/uL (0.0-0.87); Eosinophils % 1.4 % (0.00-10.9); Hematocrit 24.2 VOL% (35.7-47.0); Hemoglobin 8.2 GM/DL (12.0-16.0); Immature Granulocytes % 0.7 %; Immature Granulocytes Absolute 0.04 #; Lymphocytes # 2.7 10*3/uL (1.4-4.0); Lymphocytes % 47.6 % (21.3-54.2); Mean Corpuscular HGB Conc 33.9 GM/DL (32-36); Mean Corpuscular Volume 85.2 FL (87-102); Monocytes # 0.7 10*3/uL (0.11-0.8); Monocytes % 11.9 % (1.7-12.7); Neutrophils % 37.9 % (38.7-73.9); Platelet Count 129 T/CUMM (130-400); Red Blood Count 2.84 MC/CUMM (3.8-5.5); Red Cell Distribution Width 17.4 % (9.3-17.3); White Blood Count 5.6 T/CUMM (4-12)
[2022-07-23 06:26] LABS: Hypochromia Slight; Lymphocytes 37 % (20-55); Nucleated Red Blood Cells 1 /100 WBC (0-5); Platelet Estimate Normal; Total Cells Counted 100
[2022-07-23 06:28] LABS: Albumin 2.6 G/DL (3.4-5.0); Bilirubin,Total 0.5 MG/DL (0.20-1.00); Osmolality,Calculated 275.7 MOS/KG (273-304); Total Protein 4.6 G/DL (6.4-8.2)
[2022-07-23] MEDS ORDERED: PHENOL 1.4% THROAT SPRAY 177 ML BOTTLE PO PRN (10:28)
[2022-07-23] MEDS: POTASSIUM CHLORIDE 20 MEQ TABLET PO SCH (10:33)
[2022-07-23] MEDS: metroNIDAZOLE 500 MG TABLET PO SCH ×2 (10:36→14:20)
[2022-07-23] MEDS: CIPROFLOXACIN 500 MG TABLET PO SCH (10:36)
[2022-07-23] MEDS: cloNIDine 0.1 MG TABLET PO SCH (10:37)
[2022-07-23] MEDS: predniSONE 5 MG TABLET PO SCH (10:37)
[2022-07-23] MEDS: carvediloL 12.5 MG TABLET PO SCH (10:38)
[2022-07-23] MEDS: ANASTROZOLE 1 MG TABLET PO SCH (10:38)
[2022-07-23] MEDS: cilostazoL 50 MG TABLET PO SCH (10:38)
[2022-07-23] MEDS: NYSTATIN 500,000 UNIT/5 ML UDCUP SWISH/SWAL SCH ×2 (10:39→14:19)
[2022-07-23] MEDS: PANTOPRAZOLE 40 MG TABLET PO SCH (10:39)
[2022-07-23] MEDS: cycloSPORINE OPH EMUL 1 VIAL BOTH EYES SCH (10:48)
[2022-07-23 12:58] VITALS: BP 109/59
== END 2022-07-23 15:50 | disposition home health service (06) | DRG 392 ==
LOC: EDBD → EDUNIT# → N.ED 13:31 → N.EDINP 13:31 → SUATTDRO 17:51 → N.5E 07-19 01:56
PROVIDERS: ADMIT Internal Medicine; ATTEND Family Medicine

== ENCOUNTER 2022-07-25 14:57 | Observation (INO) ==
[2022-07-25 15:21] LABS: Basophils % 0.5 % (0.0-0.8); Eosinophils # 0.1 10*3/uL (0.0-0.87); Eosinophils % 1.3 % (0.00-10.9); Hematocrit 27.3 VOL% (35.7-47.0); Hemoglobin 9.1 GM/DL (12.0-16.0); Immature Granulocytes % 1.1 %; Immature Granulocytes Absolute 0.06 #; Lymphocytes # 1.9 10*3/uL (1.4-4.0); Lymphocytes % 33.3 % (21.3-54.2); Mean Corpuscular HGB Conc 33.3 GM/DL (32-36); Mean Corpuscular Volume 86.4 FL (87-102); Mean Platelet Volume 11.4 FL (9.6-12.0); Monocytes # 0.7 10*3/uL (0.11-0.8); Monocytes % 12.1 % (1.7-12.7); Neutrophils % 51.7 % (38.7-73.9); Platelet Count 148 T/CUMM (130-400); Red Blood Count 3.16 MC/CUMM (3.8-5.5); Red Cell Distribution Width 18.2 % (9.3-17.3); White Blood Count 5.6 T/CUMM (4-12)
[2022-07-25 15:33] LABS: INR 1.1; PT Patient Result 11.9 SECS (10.1-12.1); Partial Thromboplastin Time 25.4 SECS (23.7-32.9)
[2022-07-25 15:38] LABS: Alanine Aminotransferase 33 U/L (13-56); Albumin 2.7 G/DL (3.4-5.0); Alkaline Phosphatase 95 U/L (45-117); Aspartate Amino Transferase 43 U/L (0-37); Bilirubin,Total < 0.39 MG/DL (0.20-1.00); Blood Urea Nitrogen 12 MG/DL (7-18); Calcium 8.6 MG/DL (8.5-10.1); Carbon Dioxide 25 MMOL/L (21-32); Chloride 109 MMOL/L (98-107); Glucose 115 MG/DL (74-106); Osmolality,Calculated 279.4 MOS/KG (273-304); Potassium 3.9 MMOL/L (3.5-5.1); Sodium 140 MMOL/L (136-145); Total Protein 4.9 G/DL (6.4-8.2)
[2022-07-25] MEDS ORDERED: SODIUM CHLORIDE 0.9% 1,000 ML IV STA (15:43)
[2022-07-25 16:37] LABS: RBC,Urine 5 /HPF (0-4); Squamous Epithelial Cell,Urine Occasional /HPF (0-10)
[2022-07-25 16:41] LABS: Bilirubin,Urine Negative (Negative); Blood, Urine Trace mg/dL (Negative); Glucose,Urine (UA) Negative (Negative); Ketones,Urine Negative (Negative); Nitrite,Urine Negative (Negative); Protein,Urine Trace mg/dL (Negative); Urine Appearance Clear (Clear); Urine Color Yellow (Yellow); Urine Specific Gravity 1.025 (1.001-1.035); Urine Urobilinogen 0.2 eU/dL (<2.0)
[2022-07-25] MEDS ORDERED: KETOROLAC 30 MG/1 ML VIAL IV STA (16:48)
[2022-07-25] MEDS ORDERED: ACETAMINOPHEN 325 MG TABLET PO PRN (17:52)
[2022-07-25] MEDS ORDERED: ONDANSETRON 4 MG/2 ML VIAL IV PRN (17:52)
[2022-07-25] MEDS ORDERED: MAGNESIUM SULF RIDER 4 GM/100 ML PREMIX IV ONE ×2 (17:55→18:00)
[2022-07-25] MEDS: SODIUM CHLORIDE 0.9% 1,000 ML IV SCH (18:31)
[2022-07-25] MEDS ORDERED: LORazepam 2 MG/1 ML VIAL IV PRN (18:49)
[2022-07-25] MEDS ORDERED: PHENOL 1.4% THROAT SPRAY 177 ML BOTTLE PO PRN (18:49)
[2022-07-25] MEDS ORDERED: LOPERAMIDE 2 MG CAPSULE PO PRN (18:49)
[2022-07-25] MEDS ORDERED: ALBUTEROL/IPRATROPIUM 3 ML NEB RESP TX PRN (18:49)
[2022-07-25] MEDS ORDERED: LORATADINE 10 MG TABLET PO PRN (18:49)
[2022-07-25] MEDS ORDERED: SIMETHICONE CHEW 80 MG TABLET PO PRN (18:49)
[2022-07-25] MEDS ORDERED: COLCHICINE 0.6 MG CAPSULE PO PRN (19:15)
[2022-07-25] MEDS ORDERED: MONTELUKAST 10 MG TABLET PO SCH (21:00)
[2022-07-25] MEDS ORDERED: ROSUVASTATIN 20 MG TABLET PO SCH (21:00)
[2022-07-25] MEDS ORDERED: ENOXAPARIN 40 MG/0.4 ML SYRINGE SUBCUT SCH (21:00)
[2022-07-25] MEDS: CIPROFLOXACIN 500 MG TABLET PO SCH (22:00)
[2022-07-25] MEDS: NYSTATIN 500,000 UNIT/5 ML UDCUP SWISH/SWAL SCH (22:00)
[2022-07-25] MEDS: cycloSPORINE OPH EMUL 1 VIAL BOTH EYES SCH (22:00)
[2022-07-25] MEDS: metroNIDAZOLE 500 MG TABLET PO SCH (22:00)
[2022-07-25] MEDS: SODIUM BICARBONATE 650 MG TABLET PO SCH (22:00)
[2022-07-25] MEDS: cilostazoL 50 MG TABLET PO SCH (22:00)
[2022-07-26 05:40] LABS: Basophils % 0.3 % (0.0-0.8); Eosinophils % 0.7 % (0.00-10.9); Hematocrit 24.2 VOL% (35.7-47.0); Hemoglobin 8.1 GM/DL (12.0-16.0); Immature Granulocytes % 0.5 %; Immature Granulocytes Absolute 0.03 #; Lymphocytes # 2.5 10*3/uL (1.4-4.0); Lymphocytes % 42.6 % (21.3-54.2); Mean Corpuscular HGB Conc 33.5 GM/DL (32-36); Mean Corpuscular Volume 86.1 FL (87-102); Mean Platelet Volume 10.8 FL (9.6-12.0); Monocytes # 0.8 10*3/uL (0.11-0.8); Monocytes % 14.1 % (1.7-12.7); Neutrophils % 41.8 % (38.7-73.9); Platelet Count 155 T/CUMM (130-400); Red Blood Count 2.81 MC/CUMM (3.8-5.5); Red Cell Distribution Width 18.2 % (9.3-17.3); White Blood Count 5.8 T/CUMM (4-12)
[2022-07-26 06:14] LABS: Albumin 2.7 G/DL (3.4-5.0); Bilirubin,Total 0.4 MG/DL (0.20-1.00); Calcium 8.2 MG/DL (8.5-10.1); Osmolality,Calculated 276.4 MOS/KG (273-304); Potassium 3.7 MMOL/L (3.5-5.1); Thyroid Stimulating Hormone 2.78 uIU/ml (0.358-3.74); Total Protein 4.9 G/DL (6.4-8.2)
[2022-07-26] MEDS ORDERED: MAGNESIUM SULF RIDER 4 GM/100 ML PREMIX IV ONE ×3 (07:52→12:00)
[2022-07-26] MEDS ORDERED: predniSONE 5 MG TABLET PO SCH (09:00)
[2022-07-26] MEDS ORDERED: PANTOPRAZOLE 40 MG TABLET PO SCH (09:00)
[2022-07-26] MEDS ORDERED: ANASTROZOLE 1 MG TABLET PO SCH (09:00)
[2022-07-26] MEDS ORDERED: allopurinoL 100 MG TABLET PO SCH (09:00)
[2022-07-26] MEDS: SODIUM CHLORIDE 0.9% 1,000 ML IV SCH (09:22)
[2022-07-26] MEDS: NYSTATIN 500,000 UNIT/5 ML UDCUP SWISH/SWAL SCH ×3 (09:22→16:42)
[2022-07-26] MEDS: CIPROFLOXACIN 500 MG TABLET PO SCH (09:22)
[2022-07-26] MEDS: SODIUM BICARBONATE 650 MG TABLET PO SCH (09:22)
[2022-07-26] MEDS: cycloSPORINE OPH EMUL 1 VIAL BOTH EYES SCH (09:22)
[2022-07-26] MEDS: cilostazoL 50 MG TABLET PO SCH (09:22)
[2022-07-26] MEDS: metroNIDAZOLE 500 MG TABLET PO SCH ×2 (09:22→16:42)
[2022-07-26 13:15] VITALS: BP 125/68
[2022-07-28] MEDS ORDERED: fentaNYL 25 MCG/HR PATCH TRANSDERM SCH (09:00)
== END 2022-07-26 17:05 | disposition home health service (06) ==
LOC: N.EDINP 14:57 → N.ED 14:57 → SUATTDRO 17:52 → N.2W 18:49
PROVIDERS: ADMIT Family Medicine; ATTEND Internal Medicine

== ENCOUNTER 2022-08-28 08:55 | Inpatient (IN) ==
[2022-08-28] MEDS ORDERED: DEXTROSE 50% 25 GM/50 ML SYRINGE IV ONE (09:06)
[2022-08-28] MEDS ORDERED: DEXTROSE 50% 25 GM/50 ML VIAL IV STA (09:07)
[2022-08-28] MEDS ORDERED: SODIUM CHLORIDE 0.9% 500 ML IV STA (09:11)
[2022-08-28 10:04] LABS: Basophils % 0.3 % (0.0-0.8); Hematocrit 29.6 VOL% (35.7-47.0); Hemoglobin 9.6 GM/DL (12.0-16.0); Immature Granulocytes % 0.6 %; Immature Granulocytes Absolute 0.04 #; Lymphocytes # 0.9 10*3/uL (1.4-4.0); Lymphocytes % 13.4 % (21.3-54.2); Mean Corpuscular HGB Conc 32.4 GM/DL (32-36); Mean Corpuscular Volume 87.6 FL (87-102); Mean Platelet Volume 11.3 FL (9.6-12.0); Monocytes # 0.2 10*3/uL (0.11-0.8); Monocytes % 2.8 % (1.7-12.7); Neutrophils % 82.9 % (38.7-73.9); Platelet Count 161 T/CUMM (130-400); Red Blood Count 3.38 MC/CUMM (3.8-5.5); Red Cell Distribution Width 18.6 % (9.3-17.3); White Blood Count 6.9 T/CUMM (4-12)
[2022-08-28 10:26] LABS: Bilirubin,Total 0.6 MG/DL (0.20-1.00); Calcium 8.4 MG/DL (8.5-10.1); Osmolality,Calculated 282.5 MOS/KG (273-304); Total Protein 5.7 G/DL (6.4-8.2)
[2022-08-28 10:29] LABS: Anisocytosis 1+; Band Neutrophils 4 % (0-10); Burr Cells 2+; Lymphocytes 12 % (20-55); Nucleated Red Blood Cells 1 /100 WBC (0-5); Ovalocytes Few; Platelet Estimate Normal; Poikilocytosis 1+; Total Cells Counted 100
[2022-08-28 10:30] LABS: Macrocytosis 1+
[2022-08-28] MEDS: DEXTROSE 50% 25 GM/50 ML SYRINGE IV STA ×2 (10:45→14:41)
[2022-08-28 10:57] LABS: Glucose,Urine (UA) Negative (Negative); Ketones,Urine 40 mg/dL (Negative); Protein,Urine 100 mg/dL (Negative); RBC,Urine 86 /HPF (0-4); Squamous Epithelial Cell,Urine Occasional /HPF (0-10); Urine Appearance Turbid (Clear); Urine Color Yellow (Yellow); Urine Specific Gravity > 1.030 (1.001-1.035); Urine pH 5.5 (4.5-8.0)
[2022-08-28 10:58] LABS: Bilirubin,Urine Small mg/dL (Negative); Blood, Urine Moderate mg/dL (Negative); Nitrite,Urine Negative (Negative); Urine Urobilinogen 0.2 eU/dL (<2.0)
[2022-08-28] MEDS ORDERED: cefTRIAXone 1,000 MG in SODIUM CHLORIDE 0.9% 100 ML IV STA (11:02)
[2022-08-28] MEDS ORDERED: MAGNESIUM SULF RIDER 2 GM/50 ML PREMIX IV STA (11:05)
[2022-08-28] MEDS ORDERED: MAGNESIUM SULF RIDER 2 GM/50 ML PREMIX IV ONE (11:41)
[2022-08-28] MEDS ORDERED: DEXTROSE 5% NACL 0.45% 1,000 ML IV SCH (12:00)
[2022-08-28] MEDS: LOPERAMIDE 2 MG CAPSULE PO SCH ×2 (12:39→21:42)
[2022-08-28] MEDS: PANTOPRAZOLE 40 MG VIAL IV SCH (12:40)
[2022-08-28] MEDS: ENOXAPARIN 30 MG/0.3 ML SYRINGE SUBCUT SCH (12:40)
[2022-08-28] MEDS: DEXT 5% NACL 0.45% KCL 40 MEQ 40 MEQ/1,000 ML BAG IV SCH (14:24)
[2022-08-28] MEDS: ACETAMINOPHEN 325 MG TABLET PO PRN (18:18)
[2022-08-28] MEDS: SODIUM BICARBONATE 650 MG TABLET PO SCH (21:42)
[2022-08-28] MEDS: cycloSPORINE OPH EMUL 1 VIAL BOTH EYES SCH (21:42)
[2022-08-28] MEDS: MELATONIN 3 MG TABLET PO PRN (21:42)
[2022-08-28] MEDS: MONTELUKAST 10 MG TABLET PO SCH (21:42)
[2022-08-28] MEDS: CHOLESTYRAMINE 4 GM PACK PO SCH (21:42)
[2022-08-28] MEDS: ZINC OXIDE 16% PASTE 57 GM TUBE TOP SCH (23:35)
[2022-08-28] MEDS: NYSTATIN/TRIAMCINOLONE CREAM 15 GM TUBE TOP SCH (23:35)
[2022-08-29] MEDS: fentaNYL 25 MCG/HR PATCH TRANSDERM SCH (01:32)
[2022-08-29 05:18] LABS: Basophils % 0.5 % (0.0-0.8); Hematocrit 24.3 VOL% (35.7-47.0); Hemoglobin 8.3 GM/DL (12.0-16.0); Immature Granulocytes % 0.2 %; Immature Granulocytes Absolute 0.01 #; Lymphocytes # 1.8 10*3/uL (1.4-4.0); Lymphocytes % 28.3 % (21.3-54.2); Mean Corpuscular HGB Conc 34.2 GM/DL (32-36); Mean Corpuscular Volume 84.7 FL (87-102); Mean Platelet Volume 11.3 FL (9.6-12.0); Monocytes # 0.9 10*3/uL (0.11-0.8); Monocytes % 14.4 % (1.7-12.7); Neutrophils % 56.6 % (38.7-73.9); Platelet Count 141 T/CUMM (130-400); Red Blood Count 2.87 MC/CUMM (3.8-5.5); Red Cell Distribution Width 17.9 % (9.3-17.3); White Blood Count 6.2 T/CUMM (4-12)
[2022-08-29 05:41] LABS: % Iron Saturation 41.6 % (18-50); Ferritin 1519.6 ng/mL (8-252)
[2022-08-29] MEDS: LOPERAMIDE 2 MG CAPSULE PO SCH ×3 (05:44→20:08)
[2022-08-29] MEDS: DEXT 5% NACL 0.45% KCL 40 MEQ 40 MEQ/1,000 ML BAG IV SCH (05:44)
[2022-08-29 05:46] LABS: Albumin 2.4 G/DL (3.4-5.0); Bilirubin,Total 0.4 MG/DL (0.20-1.00); Calcium 7.9 MG/DL (8.5-10.1); Osmolality,Calculated 275.7 MOS/KG (273-304); Potassium 3.6 MMOL/L (3.5-5.1); Risk Ratio 1.71; Thyroid Stimulating Hormone 4.49 uIU/ml (0.358-3.74); VLDL Cholesterol 18.6 MG/DL
[2022-08-29 06:00] LABS: Band Neutrophils 1 % (0-10); Burr Cells Slight; Hypochromia Slight; Lymphocytes 23 % (20-55); Microcytosis Slight; Ovalocytes Slight; Platelet Estimate Adequate; Total Cells Counted 100
[2022-08-29] MEDS: LEVOTHYROXINE 25 MCG TABLET PO SCH (07:00)
[2022-08-29] MEDS: traMADol 50 MG TABLET PO PRN (07:39)
[2022-08-29] MEDS ORDERED: MAGNESIUM SULF RIDER 4 GM/100 ML PREMIX IV ONE (08:08)
[2022-08-29] MEDS: MEGESTROL 40 MG TABLET PO SCH (09:57)
[2022-08-29] MEDS: cycloSPORINE OPH EMUL 1 VIAL BOTH EYES SCH ×2 (09:57→20:08)
[2022-08-29] MEDS: CHOLECALCIFEROL 5,000 UNIT TABLET PO SCH (09:57)
[2022-08-29] MEDS: predniSONE 5 MG TABLET PO SCH (09:57)
[2022-08-29] MEDS: SODIUM BICARBONATE 650 MG TABLET PO SCH ×2 (09:57→20:08)
[2022-08-29] MEDS: BACILLUS COAGULANS CAPLET PO SCH (09:57)
[2022-08-29] MEDS: CHOLESTYRAMINE 4 GM PACK PO SCH ×2 (09:57→20:07)
[2022-08-29] MEDS: ROSUVASTATIN 20 MG TABLET PO SCH (09:57)
[2022-08-29] MEDS: ANASTROZOLE 1 MG TABLET PO SCH (09:57)
[2022-08-29] MEDS: PANTOPRAZOLE 40 MG VIAL IV SCH (09:58)
[2022-08-29] MEDS: ZINC OXIDE 16% PASTE 57 GM TUBE TOP SCH ×2 (09:58→20:09)
[2022-08-29] MEDS: NYSTATIN/TRIAMCINOLONE CREAM 15 GM TUBE TOP SCH ×2 (09:59→20:09)
[2022-08-29] MEDS: ENOXAPARIN 30 MG/0.3 ML SYRINGE SUBCUT SCH (12:44)
[2022-08-29] MEDS: ACETAMINOPHEN 325 MG TABLET PO PRN (12:48)
[2022-08-29] MEDS ORDERED: ALUMINUM/MAGNES/SIMETH MAX STR 30 ML UDCUP PO PRN (13:03)
[2022-08-29] MEDS: cefTRIAXone 2,000 MG in SODIUM CHLORIDE 0.9% 100 ML IV SCH (14:05)
[2022-08-29] MEDS ORDERED: FLUCONAZOLE 200 MG TABLET PO ONE (17:06)
[2022-08-29] MEDS: NYSTATIN 500,000 UNIT/5 ML UDCUP SWISH/SWAL SCH ×2 (18:00→20:08)
[2022-08-29] MEDS: MONTELUKAST 10 MG TABLET PO SCH (20:08)
[2022-08-29] MEDS: MELATONIN 3 MG TABLET PO PRN (20:08)
[2022-08-30] MEDS: DEXT 5% NACL 0.45% KCL 40 MEQ 40 MEQ/1,000 ML BAG IV SCH ×3 (03:51→21:50)
[2022-08-30 04:25] LABS: Basophils % 0.4 % (0.0-0.8); Hematocrit 23.4 VOL% (35.7-47.0); Hemoglobin 7.9 GM/DL (12.0-16.0); Immature Granulocytes % 0.2 %; Immature Granulocytes Absolute 0.01 #; Lymphocytes # 1.7 10*3/uL (1.4-4.0); Mean Corpuscular HGB Conc 33.8 GM/DL (32-36); Mean Corpuscular Volume 84.2 FL (87-102); Mean Platelet Volume 11.3 FL (9.6-12.0); Monocytes # 0.8 10*3/uL (0.11-0.8); Neutrophils % 48.4 % (38.7-73.9); Platelet Count 152 T/CUMM (130-400); Red Blood Count 2.78 MC/CUMM (3.8-5.5); Red Cell Distribution Width 18.4 % (9.3-17.3); White Blood Count 4.9 T/CUMM (4-12)
[2022-08-30 04:50] LABS: Calcium 8.8 MG/DL (8.5-10.1); Osmolality,Calculated 277.5 MOS/KG (273-304)
[2022-08-30 05:05] LABS: Burr Cells Slight; Hypochromia Slight; Lymphocytes 31 % (20-55); Microcytosis Slight; Ovalocytes Slight; Platelet Estimate Adequate; Total Cells Counted 100
[2022-08-30] MEDS: LEVOTHYROXINE 25 MCG TABLET PO SCH (06:49)
[2022-08-30] MEDS: LOPERAMIDE 2 MG CAPSULE PO SCH ×2 (06:49→11:51)
[2022-08-30] MEDS: MEGESTROL 40 MG TABLET PO SCH (08:54)
[2022-08-30] MEDS: FLUCONAZOLE 100 MG TABLET PO SCH (08:54)
[2022-08-30] MEDS: predniSONE 5 MG TABLET PO SCH (08:54)
[2022-08-30] MEDS: BACILLUS COAGULANS CAPLET PO SCH (08:54)
[2022-08-30] MEDS: ANASTROZOLE 1 MG TABLET PO SCH (08:54)
[2022-08-30] MEDS: ROSUVASTATIN 20 MG TABLET PO SCH (08:54)
[2022-08-30] MEDS: NYSTATIN 500,000 UNIT/5 ML UDCUP SWISH/SWAL SCH ×4 (08:55→21:49)
[2022-08-30] MEDS: cycloSPORINE OPH EMUL 1 VIAL BOTH EYES SCH ×2 (08:55→21:49)
[2022-08-30] MEDS: CHOLECALCIFEROL 5,000 UNIT TABLET PO SCH (08:55)
[2022-08-30] MEDS: SODIUM BICARBONATE 650 MG TABLET PO SCH ×2 (08:55→21:49)
[2022-08-30] MEDS: PANTOPRAZOLE 40 MG VIAL IV SCH (08:55)
[2022-08-30] MEDS: traMADol 50 MG TABLET PO PRN (08:56)
[2022-08-30] MEDS: CHOLESTYRAMINE 4 GM PACK PO SCH ×2 (09:00→21:59)
[2022-08-30] MEDS: ZINC OXIDE 16% PASTE 57 GM TUBE TOP SCH ×2 (09:00→21:50)
[2022-08-30] MEDS: NYSTATIN/TRIAMCINOLONE CREAM 15 GM TUBE TOP SCH ×2 (09:00→21:50)
[2022-08-30] MEDS ORDERED: SODIUM CHLORIDE 0.9% 1,000 ML IV PRN (11:17)
[2022-08-30] MEDS ORDERED: BISACODYL 5 MG TABLET PO ONE (12:00)
[2022-08-30] MEDS: cefTRIAXone 2,000 MG in SODIUM CHLORIDE 0.9% 100 ML IV SCH (12:30)
[2022-08-30] MEDS: ENOXAPARIN 30 MG/0.3 ML SYRINGE SUBCUT SCH (12:30)
[2022-08-30] MEDS ORDERED: POLYETHYLENE GLYCOL 3350/ELECTROLYTES 4,000 ML BOTTLE PO ONE (18:00)
[2022-08-30] MEDS: MONTELUKAST 10 MG TABLET PO SCH (21:49)
[2022-08-30] MEDS: MELATONIN 3 MG TABLET PO PRN (21:49)
[2022-08-30] MEDS: ONDANSETRON 4 MG/2 ML VIAL IV PRN (21:58)
[2022-08-31 05:39] LABS: Basophils % 0.6 % (0.0-0.8); Hematocrit 30.6 VOL% (35.7-47.0); Immature Granulocytes % 0.4 %; Immature Granulocytes Absolute 0.02 #; Lymphocytes # 2.1 10*3/uL (1.4-4.0); Mean Corpuscular HGB Conc 33.7 GM/DL (32-36); Mean Corpuscular Volume 85.5 FL (87-102); Mean Platelet Volume 11.9 FL (9.6-12.0); Monocytes # 0.8 10*3/uL (0.11-0.8); Monocytes % 14.6 % (1.7-12.7); NRBC # 0.02 10*3/uL; Neutrophils % 45.4 % (38.7-73.9); Platelet Count 156 T/CUMM (130-400); Red Cell Distribution Width 17.9 % (9.3-17.3); White Blood Count 5.3 T/CUMM (4-12)
[2022-08-31 05:51] LABS: Hemoglobin 10.3 GM/DL (12.0-16.0); Red Blood Count 3.58 MC/CUMM (3.8-5.5)
[2022-08-31 05:59] LABS: Calcium 9.4 MG/DL (8.5-10.1); Osmolality,Calculated 276.5 MOS/KG (273-304)
[2022-08-31] MEDS ORDERED: MAGNESIUM CITRATE 300 ML BOTTLE PO ONE (06:00)
[2022-08-31] MEDS: LEVOTHYROXINE 25 MCG TABLET PO SCH (06:46)
[2022-08-31 08:43] LABS: Free T4 (Free Thyroxine) 1.62 NG/DL (0.76-1.46)
[2022-08-31] MEDS: LACTATED RINGERS 1,000 ML IV SCH (09:48)
[2022-08-31] MEDS ORDERED: propofoL 200 MG/20 ML VIAL IV ONE (09:55)
[2022-08-31] MEDS ORDERED: ETOMIDATE 20 MG/10 ML VIAL IV ONE (09:55)
[2022-08-31] MEDS ORDERED: LIDOCAINE 2% 5 ML VIAL ONE (09:55)
[2022-08-31] MEDS: CHOLESTYRAMINE 4 GM PACK PO SCH ×2 (11:14→21:22)
[2022-08-31] MEDS: MEGESTROL 40 MG TABLET PO SCH (11:17)
[2022-08-31] MEDS: PANTOPRAZOLE 40 MG VIAL IV SCH (11:17)
[2022-08-31] MEDS: BACILLUS COAGULANS CAPLET PO SCH (11:17)
[2022-08-31] MEDS: ANASTROZOLE 1 MG TABLET PO SCH (11:17)
[2022-08-31] MEDS: ROSUVASTATIN 20 MG TABLET PO SCH (11:17)
[2022-08-31] MEDS: NYSTATIN 500,000 UNIT/5 ML UDCUP SWISH/SWAL SCH ×4 (11:18→21:05)
[2022-08-31] MEDS: FLUCONAZOLE 100 MG TABLET PO SCH (11:18)
[2022-08-31] MEDS: predniSONE 5 MG TABLET PO SCH (11:18)
[2022-08-31] MEDS: CHOLECALCIFEROL 5,000 UNIT TABLET PO SCH (11:18)
[2022-08-31] MEDS: SODIUM BICARBONATE 650 MG TABLET PO SCH ×2 (11:18→21:05)
[2022-08-31] MEDS: METOPROLOL TARTRATE 25 MG TABLET PO SCH ×2 (11:18→21:05)
[2022-08-31] MEDS: DEXT 5% NACL 0.45% KCL 40 MEQ 40 MEQ/1,000 ML BAG IV SCH (11:19)
[2022-08-31] MEDS: cycloSPORINE OPH EMUL 1 VIAL BOTH EYES SCH ×2 (11:19→21:05)
[2022-08-31] MEDS: cefTRIAXone 2,000 MG in SODIUM CHLORIDE 0.9% 100 ML IV SCH (11:20)
[2022-08-31] MEDS: ZINC OXIDE 16% PASTE 57 GM TUBE TOP SCH ×2 (11:20→21:06)
[2022-08-31] MEDS: NYSTATIN/TRIAMCINOLONE CREAM 15 GM TUBE TOP SCH ×2 (11:21→21:06)
[2022-08-31] MEDS: ONDANSETRON 4 MG/2 ML VIAL IV PRN (11:41)
[2022-08-31] MEDS ORDERED: BISACODYL 5 MG TABLET PO ONE ×2 (12:00→18:30)
[2022-08-31] MEDS ORDERED: PHENAZOPYRIDINE 95 MG TABLET PO PRN (12:52)
[2022-08-31] MEDS ORDERED: POLYETHYLENE GLYCOL POWDER 255 GM BOTTLE PO ONE ×2 (18:00)
[2022-08-31] MEDS: MONTELUKAST 10 MG TABLET PO SCH (21:05)
[2022-08-31] MEDS: fentaNYL 25 MCG/HR PATCH TRANSDERM SCH (23:52)
[2022-09-01] MEDS: DEXT 5% NACL 0.45% KCL 40 MEQ 40 MEQ/1,000 ML BAG IV SCH (01:13)
[2022-09-01 05:32] LABS: INR 1.1; PT Patient Result 11.8 SECS (10.1-12.1)
[2022-09-01 05:57] LABS: Calcium 8.1 MG/DL (8.5-10.1); Osmolality,Calculated 287.2 MOS/KG (273-304)
[2022-09-01] MEDS: LEVOTHYROXINE 25 MCG TABLET PO SCH (06:23)
[2022-09-01 06:30] LABS: Basophils % 0.6 % (0.0-0.8); Hematocrit 29.2 VOL% (35.7-47.0); Hemoglobin 9.4 GM/DL (12.0-16.0); Immature Granulocytes % 0.6 %; Immature Granulocytes Absolute 0.03 #; Lymphocytes # 2.1 10*3/uL (1.4-4.0); Lymphocytes % 40.7 % (21.3-54.2); Mean Corpuscular HGB Conc 32.2 GM/DL (32-36); Mean Corpuscular Volume 88.5 FL (87-102); Mean Platelet Volume 10.5 FL (9.6-12.0); Monocytes # 0.6 10*3/uL (0.11-0.8); Monocytes % 11.4 % (1.7-12.7); Neutrophils % 46.7 % (38.7-73.9); Platelet Count 138 T/CUMM (130-400); Red Cell Distribution Width 18.5 % (9.3-17.3); White Blood Count 5.1 T/CUMM (4-12)
[2022-09-01] MEDS ORDERED: MAGNESIUM SULF RIDER 4 GM/100 ML PREMIX IV ONE (07:34)
[2022-09-01 08:07] LABS: Calcium 9.3 MG/DL (8.5-10.1); Osmolality,Calculated 277.5 MOS/KG (273-304); Potassium 5.2 MMOL/L (3.5-5.1)
[2022-09-01] MEDS ORDERED: POLYETHYLENE GLYCOL POWDER 255 GM BOTTLE PO ONE (09:00)
[2022-09-01] MEDS: PANTOPRAZOLE 40 MG VIAL IV SCH (10:28)
[2022-09-01] MEDS: CHOLECALCIFEROL 5,000 UNIT TABLET PO SCH (10:29)
[2022-09-01] MEDS: SODIUM BICARBONATE 650 MG TABLET PO SCH ×2 (10:29→21:38)
[2022-09-01] MEDS: cycloSPORINE OPH EMUL 1 VIAL BOTH EYES SCH ×2 (10:29→21:38)
[2022-09-01] MEDS: ROSUVASTATIN 20 MG TABLET PO SCH (10:29)
[2022-09-01] MEDS: BACILLUS COAGULANS CAPLET PO SCH (10:29)
[2022-09-01] MEDS: FLUCONAZOLE 100 MG TABLET PO SCH (10:30)
[2022-09-01] MEDS: ANASTROZOLE 1 MG TABLET PO SCH (10:30)
[2022-09-01] MEDS: MEGESTROL 40 MG TABLET PO SCH (10:30)
[2022-09-01] MEDS: traMADol 50 MG TABLET PO PRN (10:31)
[2022-09-01] MEDS: ZINC OXIDE 16% PASTE 57 GM TUBE TOP SCH ×2 (10:31→21:38)
[2022-09-01] MEDS: NYSTATIN/TRIAMCINOLONE CREAM 15 GM TUBE TOP SCH ×2 (10:31→21:38)
[2022-09-01] MEDS: NYSTATIN 500,000 UNIT/5 ML UDCUP SWISH/SWAL SCH ×4 (10:32→21:37)
[2022-09-01] MEDS: predniSONE 5 MG TABLET PO SCH (10:32)
[2022-09-01] MEDS: METOPROLOL TARTRATE 25 MG TABLET PO SCH ×2 (10:32→21:38)
[2022-09-01] MEDS: CHOLESTYRAMINE 4 GM PACK PO SCH ×2 (10:40→22:10)
[2022-09-01] MEDS: LACTATED RINGERS 1,000 ML IV SCH (10:46)
[2022-09-01] MEDS: cefTRIAXone 2,000 MG in SODIUM CHLORIDE 0.9% 100 ML IV SCH (11:38)
[2022-09-01 12:17] LABS: Calcium 8.9 MG/DL (8.5-10.1); Osmolality,Calculated 276.5 MOS/KG (273-304); Potassium 5.1 MMOL/L (3.5-5.1)
[2022-09-01] MEDS: ACETAMINOPHEN 325 MG TABLET PO PRN (16:55)
[2022-09-01] MEDS: PHENAZOPYRIDINE 95 MG TABLET PO SCH (16:55)
[2022-09-01] MEDS: ALBUTEROL/IPRATROPIUM 3 ML NEB RESP TX SCH (20:34)
[2022-09-01] MEDS: MONTELUKAST 10 MG TABLET PO SCH (21:38)
[2022-09-02] MEDS: ALBUTEROL/IPRATROPIUM 3 ML NEB RESP TX SCH ×4 (00:28→20:01)
[2022-09-02 04:47] LABS: Basophils % 0.5 % (0.0-0.8); Hematocrit 30.6 VOL% (35.7-47.0); Hemoglobin 10.1 GM/DL (12.0-16.0); Immature Granulocytes % 0.6 %; Immature Granulocytes Absolute 0.04 #; Lymphocytes # 1.9 10*3/uL (1.4-4.0); Lymphocytes % 30.1 % (21.3-54.2); Mean Corpuscular Volume 88.4 FL (87-102); Mean Platelet Volume 11.1 FL (9.6-12.0); Monocytes # 0.7 10*3/uL (0.11-0.8); Monocytes % 11.5 % (1.7-12.7); Neutrophils % 57.3 % (38.7-73.9); Platelet Count 123 T/CUMM (130-400); Red Blood Count 3.46 MC/CUMM (3.8-5.5); Red Cell Distribution Width 18.8 % (9.3-17.3); White Blood Count 6.2 T/CUMM (4-12)
[2022-09-02 05:04] LABS: Calcium 9.6 MG/DL (8.5-10.1); Osmolality,Calculated 279.3 MOS/KG (273-304); Potassium 4.3 MMOL/L (3.5-5.1)
[2022-09-02] MEDS: LEVOTHYROXINE 25 MCG TABLET PO SCH (06:03)
[2022-09-02] MEDS: LACTATED RINGERS 1,000 ML IV SCH ×2 (08:51→15:17)
[2022-09-02] MEDS: NYSTATIN 500,000 UNIT/5 ML UDCUP SWISH/SWAL SCH ×4 (13:49→22:07)
[2022-09-02] MEDS: SODIUM BICARBONATE 650 MG TABLET PO SCH ×2 (13:49→22:07)
[2022-09-02] MEDS: PANTOPRAZOLE 40 MG VIAL IV SCH (13:49)
[2022-09-02] MEDS: BACILLUS COAGULANS CAPLET PO SCH (13:50)
[2022-09-02] MEDS: cycloSPORINE OPH EMUL 1 VIAL BOTH EYES SCH ×2 (13:50→22:07)
[2022-09-02] MEDS: METOPROLOL TARTRATE 25 MG TABLET PO SCH ×2 (13:50→22:07)
[2022-09-02] MEDS: ANASTROZOLE 1 MG TABLET PO SCH (13:50)
[2022-09-02] MEDS: ROSUVASTATIN 20 MG TABLET PO SCH (13:50)
[2022-09-02] MEDS: MEGESTROL 40 MG TABLET PO SCH (13:50)
[2022-09-02] MEDS: PHENAZOPYRIDINE 95 MG TABLET PO SCH ×2 (13:50→17:31)
[2022-09-02] MEDS: ZINC OXIDE 16% PASTE 57 GM TUBE TOP SCH ×2 (13:51→22:08)
[2022-09-02] MEDS: FLUCONAZOLE 100 MG TABLET PO SCH (13:51)
[2022-09-02] MEDS: predniSONE 5 MG TABLET PO SCH (13:51)
[2022-09-02] MEDS: CHOLECALCIFEROL 5,000 UNIT TABLET PO SCH (13:51)
[2022-09-02] MEDS: CHOLESTYRAMINE 4 GM PACK PO SCH ×2 (13:51→22:08)
[2022-09-02] MEDS: NYSTATIN/TRIAMCINOLONE CREAM 15 GM TUBE TOP SCH ×2 (13:52→22:08)
[2022-09-02] MEDS: cefTRIAXone 2,000 MG in SODIUM CHLORIDE 0.9% 100 ML IV SCH (13:52)
[2022-09-02] MEDS: traMADol 50 MG TABLET PO PRN (14:03)
[2022-09-02] MEDS: MONTELUKAST 10 MG TABLET PO SCH (22:07)
[2022-09-02] MEDS: ACETAMINOPHEN 325 MG TABLET PO PRN (22:07)
[2022-09-03] MEDS: ALBUTEROL/IPRATROPIUM 3 ML NEB RESP TX SCH ×3 (01:44→14:45)
[2022-09-03 04:49] LABS: Basophils % 0.2 % (0.0-0.8); Hematocrit 29.3 VOL% (35.7-47.0); Hemoglobin 9.5 GM/DL (12.0-16.0); Immature Granulocytes % 0.5 %; Immature Granulocytes Absolute 0.05 #; Lymphocytes # 1.1 10*3/uL (1.4-4.0); Lymphocytes % 11.2 % (21.3-54.2); Mean Corpuscular HGB Conc 32.4 GM/DL (32-36); Mean Corpuscular Volume 89.1 FL (87-102); Mean Platelet Volume 11.4 FL (9.6-12.0); Monocytes # 0.6 10*3/uL (0.11-0.8); Monocytes % 5.6 % (1.7-12.7); NRBC # 0.03 10*3/uL; Neutrophils % 82.5 % (38.7-73.9); Platelet Count 123 T/CUMM (130-400); Red Blood Count 3.29 MC/CUMM (3.8-5.5); Red Cell Distribution Width 18.7 % (9.3-17.3)
[2022-09-03 05:06] LABS: Calcium 9.4 MG/DL (8.5-10.1); Osmolality,Calculated 279.4 MOS/KG (273-304); Potassium 3.9 MMOL/L (3.5-5.1)
[2022-09-03 05:14] LABS: Band Neutrophils 3 % (0-10); Eosinophils 1 % (0-10); Hypochromia Slight; Lymphocytes 10 % (20-55); Ovalocytes Slight; Total Cells Counted 100
[2022-09-03] MEDS: LEVOTHYROXINE 25 MCG TABLET PO SCH (05:55)
[2022-09-03] MEDS: ZINC OXIDE 16% PASTE 57 GM TUBE TOP SCH (08:15)
[2022-09-03] MEDS: BACILLUS COAGULANS CAPLET PO SCH (10:42)
[2022-09-03] MEDS: MEGESTROL 40 MG TABLET PO SCH (10:42)
[2022-09-03] MEDS: cycloSPORINE OPH EMUL 1 VIAL BOTH EYES SCH (10:42)
[2022-09-03] MEDS: ROSUVASTATIN 20 MG TABLET PO SCH (10:42)
[2022-09-03] MEDS: FLUCONAZOLE 100 MG TABLET PO SCH (10:43)
[2022-09-03] MEDS: predniSONE 5 MG TABLET PO SCH (10:43)
[2022-09-03] MEDS: SODIUM BICARBONATE 650 MG TABLET PO SCH (10:43)
[2022-09-03] MEDS: PHENAZOPYRIDINE 95 MG TABLET PO SCH ×2 (10:43→19:09)
[2022-09-03] MEDS: CHOLECALCIFEROL 5,000 UNIT TABLET PO SCH (10:43)
[2022-09-03] MEDS: ANASTROZOLE 1 MG TABLET PO SCH (10:43)
[2022-09-03] MEDS: NYSTATIN 500,000 UNIT/5 ML UDCUP SWISH/SWAL SCH ×3 (10:43→19:10)
[2022-09-03] MEDS: NYSTATIN/TRIAMCINOLONE CREAM 15 GM TUBE TOP SCH (10:44)
[2022-09-03] MEDS: CHOLESTYRAMINE 4 GM PACK PO SCH (10:44)
[2022-09-03] MEDS: PANTOPRAZOLE 40 MG VIAL IV SCH (10:44)
[2022-09-03] MEDS: METOPROLOL TARTRATE 25 MG TABLET PO SCH (10:45)
[2022-09-03] MEDS: LACTATED RINGERS 1,000 ML IV SCH (12:21)
[2022-09-03] MEDS: ENOXAPARIN 30 MG/0.3 ML SYRINGE SUBCUT SCH (19:08)
[2022-09-03] MEDS: cefTRIAXone 2,000 MG in SODIUM CHLORIDE 0.9% 100 ML IV SCH (19:09)
[2022-09-03 20:05] VITALS: BP 100/65
== END 2022-09-03 20:53 | disposition home health service (06) | DRG 690 ==
LOC: N.ED 08:55 → SUATTDRO 11:38 → N.EDINP 11:38 → N.TELEN 16:06
PROVIDERS: ADMIT Emergency Medicine; ATTEND Internal Medicine
PROC: COLONBX (2022-09-02 10:20)

== ENCOUNTER 2022-10-04 17:01 | Inpatient (IN) ==
[2022-10-04] MEDS ORDERED: SODIUM CHLORIDE 0.9% 1,000 ML IV STA (17:35)
[2022-10-04 17:57] LABS: Basophils % 0.5 % (0.0-0.8); Hematocrit 27.9 VOL% (35.7-47.0); Hemoglobin 8.7 GM/DL (12.0-16.0); Immature Granulocytes % 0.5 %; Immature Granulocytes Absolute 0.02 #; Lymphocytes # 1.1 10*3/uL (1.4-4.0); Lymphocytes % 26.3 % (21.3-54.2); Mean Corpuscular HGB Conc 31.2 GM/DL (32-36); Mean Corpuscular Volume 91.2 FL (87-102); Mean Platelet Volume 10.3 FL (9.6-12.0); Monocytes # 0.3 10*3/uL (0.11-0.8); NRBC # 0.12 10*3/uL; Neutrophils % 64.7 % (38.7-73.9); Platelet Count 218 T/CUMM (130-400); Red Blood Count 3.06 MC/CUMM (3.8-5.5); Red Cell Distribution Width 18.8 % (9.3-17.3)
[2022-10-04] MEDS ORDERED: fentaNYL 100 MCG/2 ML VIAL IV STA (17:59)
[2022-10-04] MEDS ORDERED: ONDANSETRON 4 MG/2 ML VIAL IV STA (17:59)
[2022-10-04 18:32] LABS: Albumin 2.4 G/DL (3.4-5.0); Bilirubin,Total 0.4 MG/DL (0.20-1.00); Calcium 10.2 MG/DL (8.5-10.1); Osmolality,Calculated 277.5 MOS/KG (273-304); Potassium 4.6 MMOL/L (3.5-5.1); Total Protein 5.5 G/DL (6.4-8.2)
[2022-10-04 20:13] LABS: Hyaline Casts,Urine 3 /LPF (0-3); Mucus,Urine Occasional /LPF (Occasional); Squamous Epithelial Cell,Urine Occasional /HPF (0-10)
[2022-10-04] MEDS ORDERED: AZITHROMYCIN INJ 500 MG in SODIUM CHLORIDE 0.9% 250 ML IV STA (20:26)
[2022-10-04] MEDS ORDERED: cefTRIAXone 1,000 MG in SODIUM CHLORIDE 0.9% 100 ML IV STA (20:26)
[2022-10-04 20:33] LABS: Urine Color Yellow (Yellow)
[2022-10-04 20:34] LABS: Bilirubin,Urine Negative (Negative); Blood, Urine Small mg/dL (Negative); Glucose,Urine (UA) Negative (Negative); Ketones,Urine Negative (Negative); Nitrite,Urine Positive (Negative); Protein,Urine 100 mg/dL (Negative); Urine Appearance Slightly Hazy (Clear); Urine Specific Gravity > 1.030 (1.001-1.035); Urine Urobilinogen 0.2 eU/dL (<2.0); Urine pH 5.5 (4.5-8.0)
[2022-10-04] MEDS: fentaNYL 12 MCG/HR PATCH TRANSDERM SCH (21:16)
[2022-10-04] MEDS: ONDANSETRON 4 MG/2 ML VIAL IV PRN (21:33)
[2022-10-04] MEDS: DEXTROSE 5% NACL 0.45% 1,000 ML IV SCH (23:10)
[2022-10-05] MEDS: traMADol 50 MG TABLET PO PRN ×3 (04:21→21:02)
[2022-10-05] MEDS: PANTOPRAZOLE 40 MG TABLET PO SCH (08:16)
[2022-10-05] MEDS: cycloSPORINE OPH EMUL 1 VIAL BOTH EYES SCH (14:03)
[2022-10-05] MEDS ORDERED: ZINC OXIDE PASTE 113 GM TUBE TOP PRN (14:48)
[2022-10-05] MEDS: DEXTROSE 5% NACL 0.45% 1,000 ML IV SCH (18:31)
[2022-10-05] MEDS: cefTRIAXone 1,000 MG in SODIUM CHLORIDE 0.9% 100 ML IV SCH (21:00)
[2022-10-05] MEDS: AZITHROMYCIN INJ 500 MG in SODIUM CHLORIDE 0.9% 250 ML IV SCH (21:02)
[2022-10-05] MEDS: POLYETHYLENE GLYCOL POWDER 17 GM PACK PO SCH (21:02)
[2022-10-06] MEDS: cycloSPORINE OPH EMUL 1 VIAL BOTH EYES SCH ×2 (01:30→12:51)
[2022-10-06] MEDS: ONDANSETRON 4 MG/2 ML VIAL IV PRN ×2 (02:45→17:08)
[2022-10-06] MEDS: traMADol 50 MG TABLET PO PRN ×3 (03:45→21:21)
[2022-10-06 05:49] LABS: Basophils % 0.5 % (0.0-0.8); Hematocrit 23.5 VOL% (35.7-47.0); Hemoglobin 7.4 GM/DL (12.0-16.0); Immature Granulocytes % 0.3 %; Immature Granulocytes Absolute 0.02 #; Lymphocytes # 2.8 10*3/uL (1.4-4.0); Lymphocytes % 35.9 % (21.3-54.2); Mean Corpuscular HGB Conc 31.5 GM/DL (32-36); Mean Corpuscular Volume 90.7 FL (87-102); Mean Platelet Volume 10.2 FL (9.6-12.0); Monocytes # 0.8 10*3/uL (0.11-0.8); Monocytes % 10.4 % (1.7-12.7); Neutrophils % 52.9 % (38.7-73.9); Platelet Count 199 T/CUMM (130-400); Red Blood Count 2.59 MC/CUMM (3.8-5.5); Red Cell Distribution Width 18.8 % (9.3-17.3); White Blood Count 7.92 T/CUMM (4-12)
[2022-10-06 06:15] LABS: Burr Cells Slight; Hypochromia Slight; Lymphocytes 34 % (20-55); Ovalocytes Slight; Platelet Estimate Adequate; Total Cells Counted 100
[2022-10-06] MEDS ORDERED: LEVOTHYROXINE 25 MCG TABLET PO SCH (06:30)
[2022-10-06 06:34] LABS: Calcium 9.3 MG/DL (8.5-10.1); Osmolality,Calculated 273.8 MOS/KG (273-304); Potassium 4.4 MMOL/L (3.5-5.1); Thyroid Stimulating Hormone 3.89 uIU/ml (0.358-3.74); Uric Acid 3.1 MG/DL (2.6-6.0)
[2022-10-06] MEDS: ROSUVASTATIN 20 MG TABLET PO SCH (09:06)
[2022-10-06] MEDS: PANTOPRAZOLE 40 MG TABLET PO SCH (09:06)
[2022-10-06] MEDS: ANASTROZOLE 1 MG TABLET PO SCH (09:06)
[2022-10-06] MEDS: POLYETHYLENE GLYCOL POWDER 17 GM PACK PO SCH ×2 (09:07→21:24)
[2022-10-06] MEDS ORDERED: CYANOCOBALAMIN 1000 MCG/1 ML VIAL IM ONE (10:06)
[2022-10-06] MEDS: LACTULOSE 20 GM/30 ML UDCUP PO SCH ×3 (14:18→21:24)
[2022-10-06] MEDS: DEXTROSE 5% NACL 0.45% 1,000 ML IV SCH (14:20)
[2022-10-06] MEDS: traZODone 50 MG TABLET PO SCH (21:20)
[2022-10-06] MEDS: MELATONIN 3 MG TABLET PO PRN (21:20)
[2022-10-06] MEDS: cefTRIAXone 1,000 MG in SODIUM CHLORIDE 0.9% 100 ML IV SCH (21:25)
[2022-10-06] MEDS: AZITHROMYCIN INJ 500 MG in SODIUM CHLORIDE 0.9% 250 ML IV SCH (21:25)
[2022-10-07] MEDS: ONDANSETRON 4 MG/2 ML VIAL IV PRN ×3 (01:06→22:27)
[2022-10-07] MEDS: LACTULOSE 20 GM/30 ML UDCUP PO SCH ×6 (02:45→22:15)
[2022-10-07] MEDS: cycloSPORINE OPH EMUL 1 VIAL BOTH EYES SCH ×2 (02:52→15:16)
[2022-10-07 05:18] LABS: Basophils % 0.5 % (0.0-0.8); Hematocrit 25.3 VOL% (35.7-47.0); Hemoglobin 7.9 GM/DL (12.0-16.0); Immature Granulocytes % 0.5 %; Immature Granulocytes Absolute 0.04 #; Lymphocytes # 2.9 10*3/uL (1.4-4.0); Lymphocytes % 38.3 % (21.3-54.2); Mean Corpuscular HGB Conc 31.2 GM/DL (32-36); Mean Corpuscular Volume 90.7 FL (87-102); Mean Platelet Volume 10.4 FL (9.6-12.0); Monocytes # 0.8 10*3/uL (0.11-0.8); Monocytes % 10.1 % (1.7-12.7); NRBC # 0.08 10*3/uL; Neutrophils % 50.6 % (38.7-73.9); Platelet Count 214 T/CUMM (130-400); Red Blood Count 2.79 MC/CUMM (3.8-5.5); Red Cell Distribution Width 19.1 % (9.3-17.3); White Blood Count 7.63 T/CUMM (4-12)
[2022-10-07 05:51] LABS: Osmolality,Calculated 272.8 MOS/KG (273-304); Potassium 3.9 MMOL/L (3.5-5.1)
[2022-10-07] MEDS: LEVOTHYROXINE 50 MCG TABLET PO SCH (06:12)
[2022-10-07] MEDS: traMADol 50 MG TABLET PO PRN ×2 (06:22→12:23)
[2022-10-07] MEDS ORDERED: ENOXAPARIN 40 MG/0.4 ML SYRINGE SUBCUT SCH (09:00)
[2022-10-07] MEDS: ANASTROZOLE 1 MG TABLET PO SCH (09:22)
[2022-10-07] MEDS: ROSUVASTATIN 20 MG TABLET PO SCH (09:22)
[2022-10-07] MEDS: PANTOPRAZOLE 40 MG TABLET PO SCH (09:22)
[2022-10-07] MEDS: fentaNYL 12 MCG/HR PATCH TRANSDERM SCH (09:23)
[2022-10-07] MEDS: POLYETHYLENE GLYCOL POWDER 17 GM PACK PO SCH ×2 (09:23→22:12)
[2022-10-07] MEDS: DEXTROSE 5% NACL 0.45% 1,000 ML IV SCH (16:10)
[2022-10-07] MEDS: traZODone 50 MG TABLET PO SCH (22:08)
[2022-10-07] MEDS: COLCHICINE 0.6 MG CAPSULE PO SCH (22:09)
[2022-10-07] MEDS: cefTRIAXone 1,000 MG in SODIUM CHLORIDE 0.9% 100 ML IV SCH (22:10)
[2022-10-07] MEDS: AZITHROMYCIN INJ 500 MG in SODIUM CHLORIDE 0.9% 250 ML IV SCH (22:11)
[2022-10-08] MEDS: MELATONIN 3 MG TABLET PO PRN ×2 (00:05→21:43)
[2022-10-08] MEDS: LACTULOSE 20 GM/30 ML UDCUP PO SCH ×6 (02:21→21:43)
[2022-10-08] MEDS: cycloSPORINE OPH EMUL 1 VIAL BOTH EYES SCH ×2 (02:21→21:47)
[2022-10-08] MEDS: LEVOTHYROXINE 50 MCG TABLET PO SCH (05:34)
[2022-10-08 06:20] LABS: Calcium 9.2 MG/DL (8.5-10.1); Osmolality,Calculated 268.1 MOS/KG (273-304); Potassium 3.6 MMOL/L (3.5-5.1); Uric Acid 3.3 MG/DL (2.6-6.0)
[2022-10-08 07:20] LABS: Basophils % 0.4 % (0.0-0.8); Hematocrit 21.6 VOL% (35.7-47.0); Hemoglobin 6.8 GM/DL (12.0-16.0); Immature Granulocytes % 0.8 %; Immature Granulocytes Absolute 0.06 #; Lymphocytes # 2.1 10*3/uL (1.4-4.0); Lymphocytes % 27.5 % (21.3-54.2); Mean Corpuscular HGB Conc 31.5 GM/DL (32-36); Mean Corpuscular Volume 91.1 FL (87-102); Mean Platelet Volume 9.8 FL (9.6-12.0); Monocytes # 0.8 10*3/uL (0.11-0.8); Monocytes % 9.9 % (1.7-12.7); NRBC # 0.09 10*3/uL; Neutrophils % 61.4 % (38.7-73.9); Platelet Count 175 T/CUMM (130-400); Red Blood Count 2.37 MC/CUMM (3.8-5.5); White Blood Count 7.67 T/CUMM (4-12)
[2022-10-08 07:38] LABS: Lymphocytes 20 % (20-55); Nucleated Red Blood Cells 2 /100 WBC (0-5); Total Cells Counted 100
[2022-10-08 07:39] LABS: Platelet Estimate Adequate
[2022-10-08 07:40] LABS: Hypochromia Slight
[2022-10-08] MEDS: ANASTROZOLE 1 MG TABLET PO SCH (09:10)
[2022-10-08] MEDS: COLCHICINE 0.6 MG CAPSULE PO SCH ×2 (09:10→21:43)
[2022-10-08] MEDS: MULTIVITAMIN (CENTRUM) TABLET PO SCH (09:10)
[2022-10-08] MEDS: ROSUVASTATIN 20 MG TABLET PO SCH (09:10)
[2022-10-08] MEDS: POLYETHYLENE GLYCOL POWDER 17 GM PACK PO SCH ×2 (09:11→21:40)
[2022-10-08] MEDS: ENOXAPARIN 30 MG/0.3 ML SYRINGE SUBCUT SCH (09:11)
[2022-10-08] MEDS: PANTOPRAZOLE 40 MG TABLET PO SCH (09:13)
[2022-10-08] MEDS ORDERED: SODIUM CHLORIDE 0.9% 1,000 ML IV PRN (10:58)
[2022-10-08 17:01] LABS: Hematocrit 28.3 VOL% (35.7-47.0)
[2022-10-08 17:04] LABS: Hemoglobin 8.9 GM/DL (12.0-16.0)
[2022-10-08] MEDS: DEXTROSE 5% NACL 0.45% 1,000 ML IV SCH (17:15)
[2022-10-08] MEDS: cefTRIAXone 1,000 MG in SODIUM CHLORIDE 0.9% 100 ML IV SCH (21:41)
[2022-10-08] MEDS: traZODone 50 MG TABLET PO SCH (21:43)
[2022-10-08] MEDS: AZITHROMYCIN INJ 500 MG in SODIUM CHLORIDE 0.9% 250 ML IV SCH (21:47)
[2022-10-09] MEDS: ONDANSETRON 4 MG/2 ML VIAL IV PRN (00:08)
[2022-10-09] MEDS ORDERED: ETOMIDATE 20 MG/10 ML VIAL IV ONE ×2 (00:30→00:35)
[2022-10-09] MEDS ORDERED: ROCURONIUM 100 MG/10 ML VIAL IV ONE (00:35)
[2022-10-09] MEDS ORDERED: NOREPINEPHRINE DRIP 8 MG/250 ML PREMIX IV ONE (00:43)
[2022-10-09] MEDS ORDERED: NALOXONE 0.4 MG/ML VIAL ONE (00:44)
[2022-10-09] MEDS ORDERED: SODIUM CHLORIDE 0.9% 1,000 ML IV ONE (00:45)
[2022-10-09] MEDS ORDERED: NALOXONE 0.4 MG/ML VIAL IV ONE (00:45)
[2022-10-09] MEDS: MIDAZOLAM DRIP 100 MG/100 ML PREMIX IV PRN (00:58)
[2022-10-09] MEDS: DEXTROSE 5% NACL 0.45% 1,000 ML IV SCH (01:25)
[2022-10-09 01:29] LABS: Arterial Base Excess iSTAT -15 MMOL/L (-2.5-2.5); Arterial Bicarbonate iSTAT 12.7 MMOL/L (20-26); Arterial O2 Saturation iSTAT 100 % (95-100); Arterial PCO2 iSTAT 34 MM HG (35-48); Arterial PO2 iSTAT 472 MM HG (80-95); Arterial Total CO2 iSTAT 14 MMO/L (23-27); Arterial pH iSTAT 7.178 (7.35-7.45)
[2022-10-09] MEDS ORDERED: SODIUM BICARBONATE 50 MEQ/50 ML VIAL IV ONE ×2 (01:29→02:20)
[2022-10-09] MEDS ORDERED: SODIUM BICARBONATE 50 MEQ/50 ML SYRINGE IV ONE (01:30)
[2022-10-09 01:41] LABS: Basophils % 0.2 % (0.0-0.8); Hematocrit 28.1 VOL% (35.7-47.0); Hemoglobin 8.9 GM/DL (12.0-16.0); Immature Granulocytes % 0.5 %; Immature Granulocytes Absolute 0.04 #; Lymphocytes # 2.2 10*3/uL (1.4-4.0); Mean Corpuscular HGB Conc 31.7 GM/DL (32-36); Mean Corpuscular Volume 89.5 FL (87-102); Mean Platelet Volume 9.8 FL (9.6-12.0); Monocytes # 0.6 10*3/uL (0.11-0.8); Monocytes % 6.9 % (1.7-12.7); NRBC # 0.14 10*3/uL; Neutrophils % 67.4 % (38.7-73.9); Platelet Count 209 T/CUMM (130-400); Red Blood Count 3.14 MC/CUMM (3.8-5.5); Red Cell Distribution Width 17.9 % (9.3-17.3); White Blood Count 8.75 T/CUMM (4-12)
[2022-10-09 02:06] LABS: Alanine Aminotransferase 20 U/L (13-56); Alkaline Phosphatase 127 U/L (45-117); Aspartate Amino Transferase 26 U/L (0-37); Bilirubin,Total < 0.39 MG/DL (0.20-1.00); Blood Urea Nitrogen 13 MG/DL (7-18); Calcium 9.1 MG/DL (8.5-10.1); Carbon Dioxide 14 MMOL/L (21-32); Chloride 111 MMOL/L (98-107); Glucose 142 MG/DL (74-106); Potassium 3.1 MMOL/L (3.5-5.1); Sodium 136 MMOL/L (136-145); Total Protein 4.6 G/DL (6.4-8.2)
[2022-10-09 02:16] LABS: Lymphocytes 24 % (20-55); Nucleated Red Blood Cells 1 /100 WBC (0-5); Platelet Estimate Adequate; Total Cells Counted 100
[2022-10-09] MEDS: NOREPINEPHRINE DRIP 8 MG/250 ML PREMIX IV PRN (02:22)
[2022-10-09] MEDS ORDERED: POTASSIUM CHLORIDE RIDER 10 MEQ/100 ML PREMIX IV PRN (02:28)
[2022-10-09] MEDS: LACTULOSE 20 GM/30 ML UDCUP PO SCH ×4 (03:07→14:29)
[2022-10-09 03:14] LABS: Arterial Base Excess iSTAT -10 MMOL/L (-2.5-2.5); Arterial Bicarbonate iSTAT 15.9 MMOL/L (20-26); Arterial O2 Saturation iSTAT 100 % (95-100); Arterial PCO2 iSTAT 34 MM HG (35-48); Arterial PO2 iSTAT 269 MM HG (80-95); Arterial Total CO2 iSTAT 17 MMO/L (23-27); Arterial pH iSTAT 7.283 (7.35-7.45)
[2022-10-09] MEDS: SODIUM BICARB INJ 50 MEQ in DEXTROSE 5% NACL 0.45% 1,000 ML IV SCH ×2 (03:28→14:30)
[2022-10-09] MEDS: POTASSIUM CHLORIDE RIDER 20 MEQ/100 ML PREMIX IV PRN ×2 (03:29→04:23)
[2022-10-09 04:10] LABS: Bacteria,Urine Few /HPF (Few); Mucus,Urine Occasional /LPF (Occasional); Squamous Epithelial Cell,Urine Occasional /HPF (0-10); Urine Appearance Clear (Clear); Urine Color Yellow (Yellow); Urine pH 5.5 (4.5-8.0)
[2022-10-09 04:11] LABS: Bilirubin,Urine Negative (Negative); Blood, Urine Trace mg/dL (Negative); Glucose,Urine (UA) Negative (Negative); Ketones,Urine Negative (Negative); Nitrite,Urine Negative (Negative); Protein,Urine 30 mg/dL (Negative); Urine Specific Gravity >= 1.030 (1.001-1.035); Urine Urobilinogen 0.2 eU/dL (<2.0)
[2022-10-09] MEDS: LEVOTHYROXINE 50 MCG TABLET PO SCH (05:33)
[2022-10-09 08:23] LABS: Basophils % 0.2 % (0.0-0.8); Hematocrit 26.4 VOL% (35.7-47.0); Hemoglobin 8.6 GM/DL (12.0-16.0); Immature Granulocytes % 0.6 %; Immature Granulocytes Absolute 0.06 #; Lymphocytes # 1.4 10*3/uL (1.4-4.0); Lymphocytes % 13.7 % (21.3-54.2); Mean Corpuscular HGB Conc 32.6 GM/DL (32-36); Mean Corpuscular Volume 86.8 FL (87-102); Mean Platelet Volume 9.4 FL (9.6-12.0); Monocytes % 9.9 % (1.7-12.7); NRBC # 0.09 10*3/uL; Neutrophils % 75.6 % (38.7-73.9); Platelet Count 180 T/CUMM (130-400); Red Blood Count 3.04 MC/CUMM (3.8-5.5); Red Cell Distribution Width 17.6 % (9.3-17.3); White Blood Count 10.34 T/CUMM (4-12)
[2022-10-09 08:34] LABS: Alanine Aminotransferase 18 U/L (13-56); Albumin 1.8 G/DL (3.4-5.0); Alkaline Phosphatase 115 U/L (45-117); Aspartate Amino Transferase 24 U/L (0-37); Bilirubin,Total < 0.39 MG/DL (0.20-1.00); Blood Urea Nitrogen 12 MG/DL (7-18); Calcium 8.9 MG/DL (8.5-10.1); Carbon Dioxide 17 MMOL/L (21-32); Chloride 112 MMOL/L (98-107); Glucose 111 MG/DL (74-106); Osmolality,Calculated 275.7 MOS/KG (273-304); Potassium 3.4 MMOL/L (3.5-5.1); Sodium 138 MMOL/L (136-145); Total Protein 4.1 G/DL (6.4-8.2)
[2022-10-09 08:45] LABS: Hypochromia Slight; Lymphocytes 14 % (20-55); Microcytosis Slight; Platelet Estimate Adequate; Total Cells Counted 100
[2022-10-09] MEDS: PANTOPRAZOLE 40 MG TABLET PO SCH (09:03)
[2022-10-09] MEDS: POLYETHYLENE GLYCOL POWDER 17 GM PACK PO SCH ×2 (09:03→20:25)
[2022-10-09] MEDS: ROSUVASTATIN 20 MG TABLET PO SCH (09:03)
[2022-10-09] MEDS: MULTIVITAMIN (CENTRUM) TABLET PO SCH (09:03)
[2022-10-09] MEDS: COLCHICINE 0.6 MG CAPSULE PO SCH ×2 (09:04→20:25)
[2022-10-09] MEDS: ENOXAPARIN 30 MG/0.3 ML SYRINGE SUBCUT SCH (09:04)
[2022-10-09] MEDS: ANASTROZOLE 1 MG TABLET PO SCH (09:06)
[2022-10-09] MEDS: cefTRIAXone 1,000 MG in SODIUM CHLORIDE 0.9% 100 ML IV SCH (11:08)
[2022-10-09] MEDS: cycloSPORINE OPH EMUL 1 VIAL BOTH EYES SCH ×2 (14:28→20:26)
[2022-10-09] MEDS ORDERED: LACTULOSE 20 GM/30 ML UDCUP PO PRN (14:42)
[2022-10-09] MEDS: traZODone 50 MG TABLET PO SCH (20:25)
[2022-10-10] MEDS: SODIUM BICARB INJ 50 MEQ in DEXTROSE 5% NACL 0.45% 1,000 ML IV SCH ×3 (00:01→20:24)
[2022-10-10] MEDS: traMADol 50 MG TABLET PO PRN (01:47)
[2022-10-10] MEDS: MEPERIDINE 25 MG/1 ML VIAL IV PRN (01:58)
[2022-10-10] MEDS: NOREPINEPHRINE DRIP 8 MG/250 ML PREMIX IV PRN ×2 (02:00→16:58)
[2022-10-10 03:54] LABS: Arterial Base Excess iSTAT -8 MMOL/L (-2.5-2.5); Arterial Bicarbonate iSTAT 16.7 MMOL/L (20-26); Arterial O2 Saturation iSTAT 99 % (95-100); Arterial PCO2 iSTAT 32 MM HG (35-48); Arterial PO2 iSTAT 157 MM HG (80-95); Arterial Total CO2 iSTAT 18 MMO/L (23-27); Arterial pH iSTAT 7.331 (7.35-7.45)
[2022-10-10 04:06] LABS: Calcium 8.7 MG/DL (8.5-10.1); Osmolality,Calculated 272.8 MOS/KG (273-304); Potassium 3.1 MMOL/L (3.5-5.1)
[2022-10-10 04:16] LABS: Basophils % 0.2 % (0.0-0.8); Hematocrit 26.2 VOL% (35.7-47.0); Hemoglobin 8.6 GM/DL (12.0-16.0); Immature Granulocytes % 0.5 %; Immature Granulocytes Absolute 0.05 #; Mean Corpuscular HGB Conc 32.8 GM/DL (32-36); Mean Corpuscular Volume 86.5 FL (87-102); Mean Platelet Volume 10.7 FL (9.6-12.0); Monocytes # 0.9 10*3/uL (0.11-0.8); Monocytes % 8.8 % (1.7-12.7); NRBC # 0.16 10*3/uL; Neutrophils % 70.5 % (38.7-73.9); Platelet Count 226 T/CUMM (130-400); Red Blood Count 3.03 MC/CUMM (3.8-5.5); Red Cell Distribution Width 18.2 % (9.3-17.3); White Blood Count 10.14 T/CUMM (4-12)
[2022-10-10 04:42] LABS: Acanthocytes Few; Band Neutrophils 3 % (0-10); Eosinophils 1 % (0-10); Hypochromia 1+; Lymphocytes 19 % (20-55); Microcytosis 1+; Nucleated Red Blood Cells 5 /100 WBC (0-5); Ovalocytes Slight; Polychromasia Slight; Total Cells Counted 100
[2022-10-10 04:43] LABS: Burr Cells Few; Platelet Estimate Normal
[2022-10-10] MEDS ORDERED: MAGNESIUM SULF RIDER 4 GM/100 ML PREMIX IV PRN (04:50)
[2022-10-10] MEDS: MAGNESIUM SULF RIDER 2 GM/50 ML PREMIX IV PRN (05:04)
[2022-10-10] MEDS: POTASSIUM CHLORIDE RIDER 20 MEQ/100 ML PREMIX IV PRN ×2 (05:07→05:58)
[2022-10-10] MEDS: LEVOTHYROXINE 50 MCG TABLET PO SCH (05:50)
[2022-10-10] MEDS: COLCHICINE 0.6 MG CAPSULE PO SCH ×2 (09:00→20:23)
[2022-10-10] MEDS: ANASTROZOLE 1 MG TABLET PO SCH (09:00)
[2022-10-10] MEDS: MULTIVITAMIN (CENTRUM) TABLET PO SCH (09:00)
[2022-10-10] MEDS: ROSUVASTATIN 20 MG TABLET PO SCH (09:01)
[2022-10-10] MEDS: POLYETHYLENE GLYCOL POWDER 17 GM PACK PO SCH ×2 (09:01→20:24)
[2022-10-10] MEDS: cycloSPORINE OPH EMUL 1 VIAL BOTH EYES SCH ×2 (09:01→20:31)
[2022-10-10] MEDS: PANTOPRAZOLE 40 MG TABLET PO SCH (09:01)
[2022-10-10] MEDS: ENOXAPARIN 30 MG/0.3 ML SYRINGE SUBCUT SCH (09:01)
[2022-10-10] MEDS: cefTRIAXone 1,000 MG in SODIUM CHLORIDE 0.9% 100 ML IV SCH (09:01)
[2022-10-10] MEDS: POTASSIUM BICARB EFFERVESCENT 20 MEQ TAB.EFF PO SCH ×3 (10:05→16:57)
[2022-10-10] MEDS: fentaNYL 12 MCG/HR PATCH TRANSDERM SCH (10:21)
[2022-10-10] MEDS: LEVOFLOXACIN INJ 750 MG/150 ML PREMIX IV SCH (10:28)
[2022-10-10] MEDS: traZODone 50 MG TABLET PO SCH (20:23)
[2022-10-11] MEDS: MIDAZOLAM DRIP 100 MG/100 ML PREMIX IV PRN (01:22)
[2022-10-11 03:34] LABS: ABG Base Excess -3.3 MMOL/L (-2.5-2.5); ABG HCO3 21.6 MMOL/L (20-26); ABG Oxygen Saturation 98.9 % (95-100); ABG PCO2 28.1 MM HG (35-48); ABG PH 7.457 (7.35-7.45); ABG TCO2 18.5 MMOL/L (23-27)
[2022-10-11 03:46] LABS: Basophils % 0.2 % (0.0-0.8); Hematocrit 21.5 VOL% (35.7-47.0); Hemoglobin 7.3 GM/DL (12.0-16.0); Immature Granulocytes % 0.5 %; Immature Granulocytes Absolute 0.04 #; Lymphocytes # 2.2 10*3/uL (1.4-4.0); Lymphocytes % 24.8 % (21.3-54.2); Mean Corpuscular Volume 84.6 FL (87-102); Mean Platelet Volume 11.2 FL (9.6-12.0); Monocytes # 0.7 10*3/uL (0.11-0.8); Monocytes % 8.3 % (1.7-12.7); NRBC # 0.04 10*3/uL; Neutrophils % 66.2 % (38.7-73.9); Platelet Count 159 T/CUMM (130-400); Red Blood Count 2.54 MC/CUMM (3.8-5.5); Red Cell Distribution Width 17.7 % (9.3-17.3); White Blood Count 8.88 T/CUMM (4-12)
[2022-10-11 04:18] LABS: Acanthocytes Few; Band Neutrophils 1 % (0-10); Hypochromia 1+; Lymphocytes 24 % (20-55); Total Cells Counted 100
[2022-10-11 04:19] LABS: Microcytosis 1+; Ovalocytes Slight; Platelet Estimate Adequate; Target Cells Slight
[2022-10-11 04:42] LABS: Calcium 8.4 MG/DL (8.5-10.1); Potassium 4.6 MMOL/L (3.5-5.1)
[2022-10-11] MEDS: SODIUM BICARB INJ 50 MEQ in DEXTROSE 5% NACL 0.45% 1,000 ML IV SCH ×3 (06:17→17:48)
[2022-10-11] MEDS: LEVOTHYROXINE 50 MCG TABLET PO SCH (06:22)
[2022-10-11] MEDS ORDERED: SODIUM CHLORIDE 0.9% 1,000 ML IV PRN (07:45)
[2022-10-11] MEDS: ENOXAPARIN 30 MG/0.3 ML SYRINGE SUBCUT SCH (08:26)
[2022-10-11] MEDS: PANTOPRAZOLE 40 MG TABLET PO SCH (08:27)
[2022-10-11] MEDS: ROSUVASTATIN 20 MG TABLET PO SCH (08:27)
[2022-10-11] MEDS: ANASTROZOLE 1 MG TABLET PO SCH (08:27)
[2022-10-11] MEDS: POLYETHYLENE GLYCOL POWDER 17 GM PACK PO SCH ×2 (08:28→20:18)
[2022-10-11] MEDS: COLCHICINE 0.6 MG CAPSULE PO SCH ×2 (08:28→20:18)
[2022-10-11] MEDS: MULTIVITAMIN (CENTRUM) TABLET PO SCH (08:28)
[2022-10-11] MEDS: cefTRIAXone 1,000 MG in SODIUM CHLORIDE 0.9% 100 ML IV SCH (08:29)
[2022-10-11] MEDS: cycloSPORINE OPH EMUL 1 VIAL BOTH EYES SCH ×2 (08:30→20:18)
[2022-10-11] MEDS: HYDROCORTISONE 100 MG VIAL IV SCH ×2 (08:35→17:52)
[2022-10-11] MEDS: LEVOFLOXACIN INJ 750 MG/150 ML PREMIX IV SCH (10:00)
[2022-10-11] MEDS: traZODone 50 MG TABLET PO SCH (20:18)
[2022-10-12] MEDS: HYDROCORTISONE 100 MG VIAL IV SCH ×3 (01:40→17:22)
[2022-10-12 03:32] LABS: Basophils % 0.2 % (0.0-0.8); Hematocrit 25.7 VOL% (35.7-47.0); Hemoglobin 8.8 GM/DL (12.0-16.0); Immature Granulocytes % 0.5 %; Immature Granulocytes Absolute 0.03 #; Lymphocytes # 0.5 10*3/uL (1.4-4.0); Lymphocytes % 7.9 % (21.3-54.2); Mean Corpuscular HGB Conc 34.2 GM/DL (32-36); Mean Corpuscular Volume 83.2 FL (87-102); Mean Platelet Volume 10.1 FL (9.6-12.0); Monocytes # 0.2 10*3/uL (0.11-0.8); Monocytes % 3.8 % (1.7-12.7); NRBC # 0.02 10*3/uL; Neutrophils % 87.6 % (38.7-73.9); Platelet Count 154 T/CUMM (130-400); Red Blood Count 3.09 MC/CUMM (3.8-5.5); Red Cell Distribution Width 17.2 % (9.3-17.3); White Blood Count 6.08 T/CUMM (4-12)
[2022-10-12 03:46] LABS: Calcium 8.6 MG/DL (8.5-10.1); Osmolality,Calculated 272.8 MOS/KG (273-304); Potassium 4.2 MMOL/L (3.5-5.1)
[2022-10-12 03:54] LABS: Hypochromia Slight; Lymphocytes 3 % (20-55); Microcytosis Slight; Platelet Estimate Adequate; Total Cells Counted 100
[2022-10-12] MEDS: SODIUM BICARB INJ 50 MEQ in DEXTROSE 5% NACL 0.45% 1,000 ML IV SCH (04:00)
[2022-10-12 04:13] LABS: Arterial Base Excess iSTAT -4 MMOL/L (-2.5-2.5); Arterial Bicarbonate iSTAT 19.8 MMOL/L (20-26); Arterial O2 Saturation iSTAT 99 % (95-100); Arterial PCO2 iSTAT 30 MM HG (35-48); Arterial PO2 iSTAT 134 MM HG (80-95); Arterial Total CO2 iSTAT 21 MMO/L (23-27); Arterial pH iSTAT 7.427 (7.35-7.45)
[2022-10-12] MEDS: LEVOTHYROXINE 50 MCG TABLET PO SCH (05:39)
[2022-10-12] MEDS: COLCHICINE 0.6 MG CAPSULE PO SCH ×2 (08:54→20:12)
[2022-10-12] MEDS: POLYETHYLENE GLYCOL POWDER 17 GM PACK PO SCH ×2 (08:54→20:12)
[2022-10-12] MEDS: ROSUVASTATIN 20 MG TABLET PO SCH (08:54)
[2022-10-12] MEDS: cycloSPORINE OPH EMUL 1 VIAL BOTH EYES SCH ×2 (08:54→20:13)
[2022-10-12] MEDS: ANASTROZOLE 1 MG TABLET PO SCH (08:54)
[2022-10-12] MEDS: PANTOPRAZOLE 40 MG TABLET PO SCH (08:54)
[2022-10-12] MEDS: ENOXAPARIN 30 MG/0.3 ML SYRINGE SUBCUT SCH (08:55)
[2022-10-12] MEDS: cefTRIAXone 1,000 MG in SODIUM CHLORIDE 0.9% 100 ML IV SCH (08:55)
[2022-10-12] MEDS: LEVOFLOXACIN INJ 750 MG/150 ML PREMIX IV SCH (11:37)
[2022-10-12] MEDS: MULTIVITAMIN (CENTRUM) TABLET PO SCH (19:18)
[2022-10-12] MEDS: MELATONIN 3 MG TABLET PO PRN (20:12)
[2022-10-12] MEDS: traZODone 50 MG TABLET PO SCH (20:13)
[2022-10-13] MEDS: MEPERIDINE 25 MG/1 ML VIAL IV PRN (03:39)
[2022-10-13 04:01] LABS: Hematocrit 26.8 VOL% (35.7-47.0); Immature Granulocytes % 0.8 %; Immature Granulocytes Absolute 0.05 #; Lymphocytes # 0.9 10*3/uL (1.4-4.0); Mean Corpuscular HGB Conc 33.6 GM/DL (32-36); Mean Corpuscular Volume 83.5 FL (87-102); Monocytes # 0.4 10*3/uL (0.11-0.8); Monocytes % 5.9 % (1.7-12.7); NRBC # 0.03 10*3/uL; Neutrophils % 79.3 % (38.7-73.9); Platelet Count 179 T/CUMM (130-400); Red Blood Count 3.21 MC/CUMM (3.8-5.5); Red Cell Distribution Width 17.3 % (9.3-17.3); White Blood Count 6.45 T/CUMM (4-12)
[2022-10-13 04:11] LABS: Calcium 8.7 MG/DL (8.5-10.1); Osmolality,Calculated 273.8 MOS/KG (273-304); Potassium 3.7 MMOL/L (3.5-5.1)
[2022-10-13 04:17] LABS: Arterial Base Excess iSTAT -4 MMOL/L (-2.5-2.5); Arterial Bicarbonate iSTAT 19.8 MMOL/L (20-26); Arterial O2 Saturation iSTAT 83 % (95-100); Arterial PCO2 iSTAT 33 MM HG (35-48); Arterial PO2 iSTAT 47 MM HG (80-95); Arterial Total CO2 iSTAT 21 MMO/L (23-27); Arterial pH iSTAT 7.393 (7.35-7.45)
[2022-10-13] MEDS: POTASSIUM CHLORIDE RIDER 20 MEQ/100 ML PREMIX IV PRN (04:21)
[2022-10-13 04:38] LABS: Lymphocytes 8 % (20-55); Microcytosis 1+; Target Cells Slight; Total Cells Counted 100
[2022-10-13 04:39] LABS: Acanthocytes Few; Hypochromia Slight; Ovalocytes Slight; Platelet Estimate Adequate
[2022-10-13] MEDS: LEVOTHYROXINE 50 MCG TABLET PO SCH (06:15)
[2022-10-13] MEDS: HYDROCORTISONE 100 MG VIAL IV SCH ×2 (06:15→18:12)
[2022-10-13 07:11] LABS: Arterial Base Excess iSTAT -3 MMOL/L (-2.5-2.5); Arterial Bicarbonate iSTAT 21.4 MMOL/L (20-26); Arterial O2 Saturation iSTAT 99 % (95-100); Arterial PCO2 iSTAT 33 MM HG (35-48); Arterial PO2 iSTAT 145 MM HG (80-95); Arterial Total CO2 iSTAT 22 MMO/L (23-27); Arterial pH iSTAT 7.416 (7.35-7.45)
[2022-10-13] MEDS ORDERED: hydrALAZINE 20 MG/1 ML VIAL IV ONE (07:56)
[2022-10-13] MEDS: PANTOPRAZOLE 40 MG TABLET PO SCH (08:09)
[2022-10-13] MEDS: ROSUVASTATIN 20 MG TABLET PO SCH (08:09)
[2022-10-13] MEDS: COLCHICINE 0.6 MG CAPSULE PO SCH ×2 (08:09→21:20)
[2022-10-13] MEDS: ANASTROZOLE 1 MG TABLET PO SCH (08:09)
[2022-10-13] MEDS: ENOXAPARIN 30 MG/0.3 ML SYRINGE SUBCUT SCH (08:09)
[2022-10-13] MEDS: MULTIVITAMIN LIQUID (CENTRUM) 60 ML BOTTLE NG SCH (08:12)
[2022-10-13] MEDS: POLYETHYLENE GLYCOL POWDER 17 GM PACK PO SCH ×2 (08:12→21:20)
[2022-10-13] MEDS: cycloSPORINE OPH EMUL 1 VIAL BOTH EYES SCH ×2 (08:12→21:22)
[2022-10-13] MEDS: cefTRIAXone 1,000 MG in SODIUM CHLORIDE 0.9% 100 ML IV SCH (08:12)
[2022-10-13] MEDS: fentaNYL 12 MCG/HR PATCH TRANSDERM SCH (08:34)
[2022-10-13] MEDS ORDERED: hydrALAZINE 20 MG/1 ML VIAL IV PRN (08:53)
[2022-10-13] MEDS: cloNIDine 0.1 MG TABLET PO SCH ×2 (08:57→21:21)
[2022-10-13] MEDS: METOPROLOL TARTRATE 25 MG TABLET PO SCH ×2 (08:58→21:20)
[2022-10-13] MEDS: LEVOFLOXACIN INJ 750 MG/150 ML PREMIX IV SCH (09:05)
[2022-10-13] MEDS: FUROSEMIDE 40 MG/4 ML VIAL IV SCH (09:05)
[2022-10-13] MEDS: ONDANSETRON 4 MG/2 ML VIAL IV PRN ×2 (09:34→11:09)
[2022-10-13] MEDS ORDERED: MORPHINE 2 MG/1 ML SYRINGE IV ONE (10:02)
[2022-10-13] MEDS: traZODone 50 MG TABLET PO SCH (21:20)
[2022-10-14] MEDS: MEPERIDINE 25 MG/1 ML VIAL IV PRN (00:02)
[2022-10-14] MEDS: MELATONIN 3 MG TABLET PO PRN (01:21)
[2022-10-14 04:15] LABS: Arterial Base Excess iSTAT -5 MMOL/L (-2.5-2.5); Arterial Bicarbonate iSTAT 18.8 MMOL/L (20-26); Arterial O2 Saturation iSTAT 95 % (95-100); Arterial PCO2 iSTAT 31 MM HG (35-48); Arterial PO2 iSTAT 74 MM HG (80-95); Arterial Total CO2 iSTAT 20 MMO/L (23-27); Arterial pH iSTAT 7.398 (7.35-7.45)
[2022-10-14 04:27] LABS: Basophils % 0.2 % (0.0-0.8); Hematocrit 26.8 VOL% (35.7-47.0); Hemoglobin 8.8 GM/DL (12.0-16.0); Immature Granulocytes Absolute 0.06 #; Lymphocytes # 0.8 10*3/uL (1.4-4.0); Lymphocytes % 13.1 % (21.3-54.2); Mean Corpuscular HGB Conc 32.8 GM/DL (32-36); Mean Corpuscular Volume 86.5 FL (87-102); Mean Platelet Volume 10.3 FL (9.6-12.0); Monocytes # 0.4 10*3/uL (0.11-0.8); Monocytes % 7.1 % (1.7-12.7); NRBC # 0.03 10*3/uL; Neutrophils % 78.6 % (38.7-73.9); Platelet Count 174 T/CUMM (130-400); Red Cell Distribution Width 17.9 % (9.3-17.3); White Blood Count 5.81 T/CUMM (4-12)
[2022-10-14 04:42] LABS: Calcium 8.8 MG/DL (8.5-10.1); Osmolality,Calculated 277.7 MOS/KG (273-304); Potassium 3.5 MMOL/L (3.5-5.1)
[2022-10-14 04:50] LABS: Lymphocytes 9 % (20-55); Platelet Estimate Adequate; Total Cells Counted 100
[2022-10-14 04:51] LABS: Hypochromia Slight; Microcytosis Slight
[2022-10-14] MEDS: HYDROCORTISONE 100 MG VIAL IV SCH ×2 (06:10→17:35)
[2022-10-14] MEDS: LEVOTHYROXINE 50 MCG TABLET PO SCH (06:10)
[2022-10-14] MEDS: POTASSIUM CHLORIDE RIDER 20 MEQ/100 ML PREMIX IV PRN ×2 (06:16→07:06)
[2022-10-14] MEDS ORDERED: POTASSIUM PHOSPHATE 15 MMOL in SODIUM CHLORIDE 0.9% 100 ML IV ONE (07:52)
[2022-10-14] MEDS: MULTIVITAMIN LIQUID (CENTRUM) 60 ML BOTTLE NG SCH (09:49)
[2022-10-14] MEDS: ANASTROZOLE 1 MG TABLET PO SCH (09:49)
[2022-10-14] MEDS: cloNIDine 0.1 MG TABLET PO SCH ×2 (09:49→21:28)
[2022-10-14] MEDS: ALBUMIN 25% 25 GM/100 ML VIAL IV SCH ×2 (09:49→21:36)
[2022-10-14] MEDS: FUROSEMIDE 40 MG/4 ML VIAL IV SCH (09:50)
[2022-10-14] MEDS: cycloSPORINE OPH EMUL 1 VIAL BOTH EYES SCH ×2 (09:50→21:36)
[2022-10-14] MEDS: PANTOPRAZOLE 40 MG TABLET PO SCH (09:50)
[2022-10-14] MEDS: POLYETHYLENE GLYCOL POWDER 17 GM PACK PO SCH ×2 (09:50→21:29)
[2022-10-14] MEDS: COLCHICINE 0.6 MG CAPSULE PO SCH ×2 (09:50→21:28)
[2022-10-14] MEDS: ENOXAPARIN 30 MG/0.3 ML SYRINGE SUBCUT SCH (09:50)
[2022-10-14] MEDS: cefTRIAXone 1,000 MG in SODIUM CHLORIDE 0.9% 100 ML IV SCH (09:50)
[2022-10-14] MEDS: METOPROLOL TARTRATE 25 MG TABLET PO SCH ×2 (09:50→21:28)
[2022-10-14] MEDS: ROSUVASTATIN 20 MG TABLET PO SCH (09:50)
[2022-10-14] MEDS: LEVOFLOXACIN INJ 750 MG/150 ML PREMIX IV SCH (09:51)
[2022-10-14] MEDS: allopurinoL 100 MG TABLET PO SCH (11:17)
[2022-10-14] MEDS: CHOLECALCIFEROL 5,000 UNIT TABLET PO SCH (11:17)
[2022-10-14] MEDS: MEGESTROL 40 MG TABLET PO SCH (11:17)
[2022-10-14] MEDS: cilostazoL 50 MG TABLET PO SCH ×2 (11:17→21:28)
[2022-10-14] MEDS: traZODone 50 MG TABLET PO SCH (21:28)
[2022-10-14] MEDS: MONTELUKAST 10 MG TABLET PO SCH (21:28)
[2022-10-15] MEDS: ALBUMIN 25% 25 GM/100 ML VIAL IV SCH (04:12)
[2022-10-15] MEDS: HYDROCORTISONE 100 MG VIAL IV SCH ×2 (05:21→17:00)
[2022-10-15 06:33] LABS: Immature Granulocytes % 0.5 %; Immature Granulocytes Absolute 0.02 #; Lymphocytes # 0.4 10*3/uL (1.4-4.0); Lymphocytes % 9.5 % (21.3-54.2); Mean Corpuscular HGB Conc 33.3 GM/DL (32-36); Mean Corpuscular Volume 85.7 FL (87-102); Mean Platelet Volume 10.3 FL (9.6-12.0); Monocytes # 0.2 10*3/uL (0.11-0.8); Monocytes % 5.2 % (1.7-12.7); Neutrophils % 84.8 % (38.7-73.9); Platelet Count 136 T/CUMM (130-400); Red Blood Count 2.45 MC/CUMM (3.8-5.5); Red Cell Distribution Width 17.5 % (9.3-17.3); White Blood Count 4.44 T/CUMM (4-12)
[2022-10-15 06:44] LABS: Calcium 8.7 MG/DL (8.5-10.1); Osmolality,Calculated 277.5 MOS/KG (273-304); Potassium 3.4 MMOL/L (3.5-5.1)
[2022-10-15 06:56] LABS: Band Neutrophils 1 % (0-10); Hypochromia Slight; Lymphocytes 8 % (20-55); Microcytosis Slight; Platelet Estimate Adequate; Total Cells Counted 100
[2022-10-15] MEDS: ENOXAPARIN 30 MG/0.3 ML SYRINGE SUBCUT SCH (11:09)
[2022-10-15] MEDS: FUROSEMIDE 40 MG/4 ML VIAL IV SCH (11:09)
[2022-10-15] MEDS: cycloSPORINE OPH EMUL 1 VIAL BOTH EYES SCH ×2 (11:10→22:29)
[2022-10-15] MEDS: allopurinoL 100 MG TABLET PO SCH (11:10)
[2022-10-15] MEDS: COLCHICINE 0.6 MG CAPSULE PO SCH ×2 (11:10→21:54)
[2022-10-15] MEDS: cilostazoL 50 MG TABLET PO SCH ×2 (11:10→21:55)
[2022-10-15] MEDS: LEVOTHYROXINE 50 MCG TABLET PO SCH (11:10)
[2022-10-15] MEDS: MEGESTROL 40 MG TABLET PO SCH (11:11)
[2022-10-15] MEDS: PANTOPRAZOLE 40 MG TABLET PO SCH (11:11)
[2022-10-15] MEDS: CHOLECALCIFEROL 5,000 UNIT TABLET PO SCH (11:11)
[2022-10-15] MEDS: ANASTROZOLE 1 MG TABLET PO SCH (11:11)
[2022-10-15] MEDS: ROSUVASTATIN 20 MG TABLET PO SCH (11:11)
[2022-10-15] MEDS: cloNIDine 0.1 MG TABLET PO SCH ×2 (11:11→21:54)
[2022-10-15] MEDS: METOPROLOL TARTRATE 25 MG TABLET PO SCH ×2 (11:12→21:55)
[2022-10-15] MEDS: LEVOFLOXACIN INJ 750 MG/150 ML PREMIX IV SCH (11:13)
[2022-10-15] MEDS: cefTRIAXone 1,000 MG in SODIUM CHLORIDE 0.9% 100 ML IV SCH (11:14)
[2022-10-15] MEDS: POLYETHYLENE GLYCOL POWDER 17 GM PACK PO SCH ×2 (11:16→22:29)
[2022-10-15] MEDS: ALBUTEROL/IPRATROPIUM 3 ML NEB RESP TX PRN (12:24)
[2022-10-15 12:34] LABS: Arterial Base Excess iSTAT -5 MMOL/L (-2.5-2.5); Arterial Bicarbonate iSTAT 22.2 MMOL/L (20-26); Arterial O2 Saturation iSTAT 90 % (95-100); Arterial PCO2 iSTAT 51 MM HG (35-48); Arterial PO2 iSTAT 68 MM HG (80-95); Arterial Total CO2 iSTAT 24 MMO/L (23-27)
[2022-10-15] MEDS ORDERED: MAGNESIUM SULF RIDER 2 GM/50 ML PREMIX IV ONE (14:11)
[2022-10-15] MEDS ORDERED: SODIUM CHLORIDE 0.9% 1,000 ML IV PRN (14:13)
[2022-10-15] MEDS ORDERED: FUROSEMIDE 40 MG/4 ML VIAL IV ONE (14:16)
[2022-10-15] MEDS: MULTIVITAMIN LIQUID (CENTRUM) 60 ML BOTTLE NG SCH (14:50)
[2022-10-15] MEDS ORDERED: FUROSEMIDE 40 MG/4 ML VIAL IV SCH (16:00)
[2022-10-15] MEDS: methylPREDNISolone SOD SUC 40 MG/1 ML VIAL IV SCH ×2 (16:18→23:02)
[2022-10-15] MEDS: ONDANSETRON 4 MG/2 ML VIAL IV PRN ×2 (17:58→22:28)
[2022-10-15] MEDS: ALBUTEROL/IPRATROPIUM 3 ML NEB RESP TX SCH (19:35)
[2022-10-15] MEDS ORDERED: FUROSEMIDE 20 MG/2 ML VIAL IV ONE (19:52)
[2022-10-15] MEDS: traZODone 50 MG TABLET PO SCH (21:54)
[2022-10-15] MEDS: MONTELUKAST 10 MG TABLET PO SCH (22:30)
[2022-10-16] MEDS: ALBUTEROL/IPRATROPIUM 3 ML NEB RESP TX SCH ×4 (00:25→19:42)
[2022-10-16] MEDS: HYDROCORTISONE 100 MG VIAL IV SCH (06:21)
[2022-10-16 06:23] LABS: Hematocrit 32.9 VOL% (35.7-47.0); Hemoglobin 10.8 GM/DL (12.0-16.0)
[2022-10-16] MEDS: methylPREDNISolone SOD SUC 40 MG/1 ML VIAL IV SCH ×2 (06:27→16:28)
[2022-10-16] MEDS: LEVOTHYROXINE 50 MCG TABLET PO SCH (06:27)
[2022-10-16] MEDS: ENOXAPARIN 30 MG/0.3 ML SYRINGE SUBCUT SCH (09:18)
[2022-10-16] MEDS: COLCHICINE 0.6 MG CAPSULE PO SCH ×2 (09:19→21:04)
[2022-10-16] MEDS: allopurinoL 100 MG TABLET PO SCH (09:19)
[2022-10-16] MEDS: cilostazoL 50 MG TABLET PO SCH ×2 (09:19→21:04)
[2022-10-16] MEDS: ROSUVASTATIN 20 MG TABLET PO SCH (09:19)
[2022-10-16] MEDS: cycloSPORINE OPH EMUL 1 VIAL BOTH EYES SCH ×2 (09:20→21:03)
[2022-10-16] MEDS: MEGESTROL 40 MG TABLET PO SCH (09:20)
[2022-10-16] MEDS: METOPROLOL TARTRATE 25 MG TABLET PO SCH ×2 (09:20→21:04)
[2022-10-16] MEDS: PANTOPRAZOLE 40 MG TABLET PO SCH (09:20)
[2022-10-16] MEDS: ANASTROZOLE 1 MG TABLET PO SCH (09:21)
[2022-10-16] MEDS: CHOLECALCIFEROL 5,000 UNIT TABLET PO SCH (09:21)
[2022-10-16] MEDS: FUROSEMIDE 40 MG/4 ML VIAL IV SCH ×2 (09:21→16:30)
[2022-10-16] MEDS: cloNIDine 0.1 MG TABLET PO SCH ×2 (09:21→21:04)
[2022-10-16] MEDS: cefTRIAXone 1,000 MG in SODIUM CHLORIDE 0.9% 100 ML IV SCH (09:22)
[2022-10-16] MEDS: fentaNYL 12 MCG/HR PATCH TRANSDERM SCH (09:22)
[2022-10-16] MEDS: POLYETHYLENE GLYCOL POWDER 17 GM PACK PO SCH ×2 (09:22→20:08)
[2022-10-16] MEDS: ONDANSETRON 4 MG/2 ML VIAL IV PRN (09:46)
[2022-10-16] MEDS: LEVOFLOXACIN INJ 750 MG/150 ML PREMIX IV SCH (10:00)
[2022-10-16] MEDS: MULTIVITAMIN LIQUID (CENTRUM) 60 ML BOTTLE NG SCH (10:18)
[2022-10-16 11:07] LABS: Arterial Base Excess iSTAT -7 MMOL/L (-2.5-2.5); Arterial Bicarbonate iSTAT 23.8 MMOL/L (20-26); Arterial O2 Saturation iSTAT 79 % (95-100); Arterial PCO2 iSTAT 76 MM HG (35-48); Arterial PO2 iSTAT 60 MM HG (80-95); Arterial Total CO2 iSTAT 26 MMO/L (23-27); Arterial pH iSTAT 7.103 (7.35-7.45)
[2022-10-16] MEDS ORDERED: NOREPINEPHRINE DRIP 8 MG/250 ML PREMIX IV PRN (11:17)
[2022-10-16] MEDS ORDERED: LACTATED RINGERS 1,000 ML IV ONE (11:17)
[2022-10-16 11:37] LABS: Hematocrit 28.3 VOL% (35.7-47.0); Hemoglobin 9.1 GM/DL (12.0-16.0); Immature Granulocytes % 0.4 %; Immature Granulocytes Absolute 0.02 #; Lymphocytes # 0.2 10*3/uL (1.4-4.0); Lymphocytes % 3.5 % (21.3-54.2); Mean Corpuscular HGB Conc 32.2 GM/DL (32-36); Mean Corpuscular Volume 88.2 FL (87-102); Mean Platelet Volume 9.7 FL (9.6-12.0); Monocytes # 0.1 10*3/uL (0.11-0.8); Monocytes % 1.6 % (1.7-12.7); NRBC # 0.02 10*3/uL; Neutrophils % 94.5 % (38.7-73.9); Platelet Count 132 T/CUMM (130-400); Red Blood Count 3.21 MC/CUMM (3.8-5.5); Red Cell Distribution Width 17.2 % (9.3-17.3)
[2022-10-16 11:42] LABS: Lymphocytes 2 % (20-55); Platelet Estimate Normal; Total Cells Counted 100
[2022-10-16 11:43] LABS: Hypochromia Slight; Microcytosis Slight
[2022-10-16 11:56] LABS: Calcium 8.7 MG/DL (8.5-10.1); Osmolality,Calculated 278.7 MOS/KG (273-304); Potassium 3.2 MMOL/L (3.5-5.1)
[2022-10-16] MEDS: PIPERACILLIN/TAZOBACTAM 3,375 MG in SODIUM CHLORIDE 0.9% 100 ML IV SCH ×2 (12:08→21:03)
[2022-10-16 14:25] LABS: Arterial Base Excess iSTAT -6 MMOL/L (-2.5-2.5); Arterial Bicarbonate iSTAT 20.3 MMOL/L (20-26); Arterial O2 Saturation iSTAT 97 % (95-100); Arterial PCO2 iSTAT 41 MM HG (35-48); Arterial PO2 iSTAT 103 MM HG (80-95); Arterial Total CO2 iSTAT 21 MMO/L (23-27); Arterial pH iSTAT 7.303 (7.35-7.45)
[2022-10-16 18:03] VITALS: BP 141/80
[2022-10-16] MEDS: MONTELUKAST 10 MG TABLET PO SCH (21:04)
[2022-10-17] MEDS: ALBUTEROL/IPRATROPIUM 3 ML NEB RESP TX SCH ×4 (01:04→19:10)
[2022-10-17] MEDS: methylPREDNISolone SOD SUC 40 MG/1 ML VIAL IV SCH ×3 (01:28→16:25)
[2022-10-17] MEDS: PIPERACILLIN/TAZOBACTAM 3,375 MG in SODIUM CHLORIDE 0.9% 100 ML IV SCH ×3 (04:11→19:29)
[2022-10-17 04:16] LABS: Hemoglobin 9.5 GM/DL (12.0-16.0); Immature Granulocytes % 0.5 %; Immature Granulocytes Absolute 0.03 #; Lymphocytes # 0.3 10*3/uL (1.4-4.0); Lymphocytes % 4.4 % (21.3-54.2); Mean Corpuscular HGB Conc 33.9 GM/DL (32-36); Mean Corpuscular Volume 85.6 FL (87-102); Mean Platelet Volume 9.5 FL (9.6-12.0); Monocytes # 0.1 10*3/uL (0.11-0.8); Monocytes % 1.4 % (1.7-12.7); NRBC # 0.02 10*3/uL; Neutrophils % 93.7 % (38.7-73.9); Platelet Count 128 T/CUMM (130-400); Red Blood Count 3.27 MC/CUMM (3.8-5.5); Red Cell Distribution Width 17.1 % (9.3-17.3); White Blood Count 5.67 T/CUMM (4-12)
[2022-10-17 04:36] LABS: Calcium 8.4 MG/DL (8.5-10.1); Osmolality,Calculated 283.3 MOS/KG (273-304); Potassium 2.7 MMOL/L (3.5-5.1)
[2022-10-17 04:38] LABS: Hypochromia Slight; Lymphocytes 5 % (20-55); Microcytosis Slight; Nucleated Red Blood Cells 1 /100 WBC (0-5); Total Cells Counted 100
[2022-10-17 04:39] LABS: Acanthocytes Few; Platelet Estimate Adequate
[2022-10-17] MEDS: MAGNESIUM SULF RIDER 2 GM/50 ML PREMIX IV PRN (05:35)
[2022-10-17] MEDS: POTASSIUM CHLORIDE RIDER 20 MEQ/100 ML PREMIX IV PRN ×4 (05:35→19:25)
[2022-10-17] MEDS: LEVOTHYROXINE 50 MCG TABLET PO SCH (06:15)
[2022-10-17 06:17] LABS: Arterial Bicarbonate iSTAT 21.3 MMOL/L (20-26); Arterial pH iSTAT 7.352 (7.35-7.45)
[2022-10-17] MEDS: FUROSEMIDE 40 MG/4 ML VIAL IV SCH (07:38)
[2022-10-17] MEDS: cloNIDine 0.1 MG TABLET PO SCH ×2 (08:30→20:56)
[2022-10-17] MEDS: ANASTROZOLE 1 MG TABLET PO SCH (08:30)
[2022-10-17] MEDS: COLCHICINE 0.6 MG CAPSULE PO SCH ×2 (08:30→20:55)
[2022-10-17] MEDS: ROSUVASTATIN 20 MG TABLET PO SCH (08:31)
[2022-10-17] MEDS: METOPROLOL TARTRATE 25 MG TABLET PO SCH ×2 (08:31→20:55)
[2022-10-17] MEDS: POLYETHYLENE GLYCOL POWDER 17 GM PACK PO SCH (08:31)
[2022-10-17] MEDS: MEGESTROL 40 MG TABLET PO SCH (08:31)
[2022-10-17] MEDS: ENOXAPARIN 30 MG/0.3 ML SYRINGE SUBCUT SCH (08:31)
[2022-10-17] MEDS: cycloSPORINE OPH EMUL 1 VIAL BOTH EYES SCH ×2 (08:32→20:55)
[2022-10-17] MEDS: CHOLECALCIFEROL 5,000 UNIT TABLET PO SCH (08:32)
[2022-10-17] MEDS: cilostazoL 50 MG TABLET PO SCH ×2 (08:32→20:55)
[2022-10-17] MEDS: PANTOPRAZOLE 40 MG TABLET PO SCH (08:32)
[2022-10-17] MEDS: allopurinoL 100 MG TABLET PO SCH (08:32)
[2022-10-17] MEDS: LEVOFLOXACIN INJ 750 MG/150 ML PREMIX IV SCH (09:01)
[2022-10-17] MEDS: MULTIVITAMIN LIQUID (CENTRUM) 60 ML BOTTLE NG SCH (09:01)
[2022-10-17] MEDS ORDERED: DEXTROSE 10% 250 ML BAG IV PRN (11:44)
[2022-10-17] MEDS ORDERED: DEXTROSE 10% 250 ML IV ONE (11:46)
[2022-10-17] MEDS: MONTELUKAST 10 MG TABLET PO SCH (20:56)
[2022-10-18] MEDS: ALBUTEROL/IPRATROPIUM 3 ML NEB RESP TX SCH ×4 (00:30→18:45)
[2022-10-18] MEDS: methylPREDNISolone SOD SUC 40 MG/1 ML VIAL IV SCH ×3 (00:38→17:08)
[2022-10-18 03:46] LABS: Hematocrit 31.8 VOL% (35.7-47.0); Hemoglobin 10.7 GM/DL (12.0-16.0); Red Blood Count 3.72 MC/CUMM (3.8-5.5); White Blood Count 7.61 T/CUMM (4-12)
[2022-10-18 03:47] LABS: Basophils % 0.1 % (0.0-0.8); Immature Granulocytes % 0.7 %; Immature Granulocytes Absolute 0.05 #; Lymphocytes # 0.2 10*3/uL (1.4-4.0); Lymphocytes % 2.6 % (21.3-54.2); Mean Corpuscular HGB Conc 33.6 GM/DL (32-36); Mean Corpuscular Volume 85.5 FL (87-102); Mean Platelet Volume 10.3 FL (9.6-12.0); Monocytes # 0.2 10*3/uL (0.11-0.8); NRBC # 0.06 10*3/uL; Neutrophils % 94.6 % (38.7-73.9); Platelet Count 145 T/CUMM (130-400); Red Cell Distribution Width 17.3 % (9.3-17.3)
[2022-10-18] MEDS: PIPERACILLIN/TAZOBACTAM 3,375 MG in SODIUM CHLORIDE 0.9% 100 ML IV SCH ×3 (03:49→20:26)
[2022-10-18 04:11] LABS: Alanine Aminotransferase 25 U/L (13-56); Albumin 2.1 G/DL (3.4-5.0); Alkaline Phosphatase 168 U/L (45-117); Aspartate Amino Transferase 35 U/L (0-37); Bilirubin,Total < 0.39 MG/DL (0.20-1.00); Blood Urea Nitrogen 24 MG/DL (7-18); Calcium 8.9 MG/DL (8.5-10.1); Carbon Dioxide 22 MMOL/L (21-32); Chloride 111 MMOL/L (98-107); Glucose 98 MG/DL (74-106); Osmolality,Calculated 284.3 MOS/KG (273-304); Phosphorous 2.7 MG/DL (2.5-4.9); Potassium 3.8 MMOL/L (3.5-5.1); Sodium 141 MMOL/L (136-145); Total Protein 4.3 G/DL (6.4-8.2)
[2022-10-18 04:12] LABS: Lymphocytes 2 % (20-55); Total Cells Counted 100
[2022-10-18 04:13] LABS: Hypochromia Slight; Microcytosis Slight; Platelet Estimate Normal
[2022-10-18 04:17] LABS: % Iron Saturation 75.3 % (18-50); Ferritin 3736.1 ng/mL (8-252)
[2022-10-18] MEDS: LEVOTHYROXINE 50 MCG TABLET PO SCH (06:30)
[2022-10-18] MEDS: POTASSIUM CHLORIDE RIDER 20 MEQ/100 ML PREMIX IV PRN (07:50)
[2022-10-18] MEDS: ONDANSETRON 4 MG/2 ML VIAL IV PRN ×3 (08:16→21:20)
[2022-10-18] MEDS: ROSUVASTATIN 20 MG TABLET PO SCH (08:40)
[2022-10-18] MEDS: POLYETHYLENE GLYCOL POWDER 17 GM PACK PO SCH (08:40)
[2022-10-18] MEDS: allopurinoL 100 MG TABLET PO SCH (08:40)
[2022-10-18] MEDS: COLCHICINE 0.6 MG CAPSULE PO SCH ×2 (08:40→20:25)
[2022-10-18] MEDS: METOPROLOL TARTRATE 25 MG TABLET PO SCH ×2 (08:40→20:25)
[2022-10-18] MEDS: CHOLECALCIFEROL 5,000 UNIT TABLET PO SCH (08:40)
[2022-10-18] MEDS: ANASTROZOLE 1 MG TABLET PO SCH (08:40)
[2022-10-18] MEDS: cilostazoL 50 MG TABLET PO SCH ×2 (08:40→20:25)
[2022-10-18] MEDS: cloNIDine 0.1 MG TABLET PO SCH ×2 (08:41→20:25)
[2022-10-18] MEDS: MEGESTROL 40 MG TABLET PO SCH (08:41)
[2022-10-18] MEDS: ENOXAPARIN 30 MG/0.3 ML SYRINGE SUBCUT SCH (08:41)
[2022-10-18] MEDS: cycloSPORINE OPH EMUL 1 VIAL BOTH EYES SCH ×2 (08:46→20:25)
[2022-10-18] MEDS: OMEPRAZOLE ODT 20 MG TABLET NG SCH (08:49)
[2022-10-18] MEDS: MULTIVITAMIN LIQUID (CENTRUM) 60 ML BOTTLE NG SCH (08:49)
[2022-10-18] MEDS: MORPHINE 2 MG/1 ML SYRINGE IV PRN ×2 (09:21→13:20)
[2022-10-18] MEDS: LACTATED RINGERS 1,000 ML IV SCH ×2 (09:24→22:51)
[2022-10-18] MEDS: MONTELUKAST 10 MG TABLET PO SCH (20:25)
[2022-10-18] MEDS: ALBUTEROL/IPRATROPIUM 3 ML NEB RESP TX PRN (22:10)
[2022-10-19] MEDS: ALBUTEROL/IPRATROPIUM 3 ML NEB RESP TX SCH ×3 (00:15→13:36)
[2022-10-19] MEDS: MORPHINE 2 MG/1 ML SYRINGE IV PRN ×2 (00:51→09:19)
[2022-10-19] MEDS: methylPREDNISolone SOD SUC 40 MG/1 ML VIAL IV SCH ×2 (00:51→09:20)
[2022-10-19 03:36] LABS: Arterial Bicarbonate iSTAT 19.2 MMOL/L (20-26); Arterial pH iSTAT 7.361 (7.35-7.45)
[2022-10-19] MEDS: PIPERACILLIN/TAZOBACTAM 3,375 MG in SODIUM CHLORIDE 0.9% 100 ML IV SCH ×2 (03:36→13:00)
[2022-10-19 03:45] LABS: Basophils % 0.1 % (0.0-0.8); Hematocrit 30.9 VOL% (35.7-47.0); Hemoglobin 10.4 GM/DL (12.0-16.0); Immature Granulocytes % 0.8 %; Immature Granulocytes Absolute 0.07 #; Lymphocytes # 0.2 10*3/uL (1.4-4.0); Lymphocytes % 2.3 % (21.3-54.2); Mean Corpuscular HGB Conc 33.7 GM/DL (32-36); Mean Corpuscular Volume 84.7 FL (87-102); Mean Platelet Volume 10.2 FL (9.6-12.0); Monocytes # 0.1 10*3/uL (0.11-0.8); Monocytes % 1.3 % (1.7-12.7); NRBC # 0.05 10*3/uL; Neutrophils % 95.5 % (38.7-73.9); Platelet Count 146 T/CUMM (130-400); Red Blood Count 3.65 MC/CUMM (3.8-5.5); Red Cell Distribution Width 17.7 % (9.3-17.3); White Blood Count 8.31 T/CUMM (4-12)
[2022-10-19 03:53] LABS: Calcium 8.9 MG/DL (8.5-10.1); Osmolality,Calculated 284.4 MOS/KG (273-304); Potassium 3.7 MMOL/L (3.5-5.1)
[2022-10-19 04:04] LABS: Lymphocytes 1 % (20-55); Platelet Estimate Adequate; Total Cells Counted 100
[2022-10-19 04:05] LABS: Hypochromia Slight; Microcytosis Slight
[2022-10-19] MEDS: POTASSIUM CHLORIDE RIDER 20 MEQ/100 ML PREMIX IV PRN (04:08)
[2022-10-19] MEDS: LEVOTHYROXINE 50 MCG TABLET PO SCH (06:08)
[2022-10-19] MEDS ORDERED: FUROSEMIDE 40 MG/4 ML VIAL IV ONE (07:08)
[2022-10-19] MEDS: cloNIDine 0.1 MG TABLET PO SCH (09:17)
[2022-10-19] MEDS: ROSUVASTATIN 20 MG TABLET PO SCH (09:17)
[2022-10-19] MEDS: COLCHICINE 0.6 MG CAPSULE PO SCH (09:17)
[2022-10-19] MEDS: ANASTROZOLE 1 MG TABLET PO SCH (09:17)
[2022-10-19] MEDS: MULTIVITAMIN LIQUID (CENTRUM) 60 ML BOTTLE NG SCH (09:17)
[2022-10-19] MEDS: ENOXAPARIN 30 MG/0.3 ML SYRINGE SUBCUT SCH (09:18)
[2022-10-19] MEDS: POLYETHYLENE GLYCOL POWDER 17 GM PACK PO SCH (09:18)
[2022-10-19] MEDS: MEGESTROL 40 MG TABLET PO SCH (09:18)
[2022-10-19] MEDS: cycloSPORINE OPH EMUL 1 VIAL BOTH EYES SCH (09:18)
[2022-10-19] MEDS: OMEPRAZOLE ODT 20 MG TABLET NG SCH (09:18)
[2022-10-19] MEDS: cilostazoL 50 MG TABLET PO SCH (09:18)
[2022-10-19] MEDS: METOPROLOL TARTRATE 25 MG TABLET PO SCH (09:18)
[2022-10-19] MEDS: allopurinoL 100 MG TABLET PO SCH (09:19)
[2022-10-19] MEDS: CHOLECALCIFEROL 5,000 UNIT TABLET PO SCH (09:19)
[2022-10-19] MEDS ORDERED: methylPREDNISolone SOD SUC 40 MG/1 ML VIAL IV SCH (09:30)
== END 2022-10-19 15:04 | DRG 207 ==
LOC: EDUNIT# → EDBD → N.2W 17:01 → N.ED 17:01 → N.2W 21:35 → SUATTDRO 10-05 13:58 → N.2E 10-06 19:21 → N.ICU 10-09 00:41 → N.2E 10-14 14:00 → N.ICU 10-16 11:08
PROVIDERS: ADMIT Internal Medicine; ATTEND Internal Medicine